=== PATIENT | female | born 1935 | race Caucasian/White ===

== ENCOUNTER 2020-09-13 13:57 | Outpatient (REF) | payer MEDICARE, SELFPAY | END 2020-09-13 13:58 | disposition home or self-care (01) | LOC: HO.LAB 13:57 | PROVIDERS: PCP Internal Medicine; Visit Provider Internal Medicine Cardiovascular Disease | DX: I48.0 Paroxysmal atrial fibrillation (principal); I44.7 Left bundle-branch block, unspecified; I10 Essential (primary) hypertension; R60.0 Localized edema | CPT/HCPCS: 36415; 83880; 93005; 99212 ==

== ENCOUNTER 2020-09-14 13:46 | Outpatient (REF) | payer MEDICARE, SELFPAY ==
[2020-09-14 17:06] LABS: B Type Natriuretic Peptide 136 pg/mL (<100)
== END 2020-09-14 13:47 | disposition home or self-care (01) ==
LOC: HO.HMGCLDS 13:46
PROVIDERS: PCP Internal Medicine; Visit Provider Internal Medicine Cardiovascular Disease
DX: R60.0 Localized edema (principal)
CPT/HCPCS: 36415; 83880

== ENCOUNTER → 2020-11-10 09:28 | Outpatient (REF) | payer MEDICARE, SELFPAY ==
--- NOTE | 2020-11-10 09:31 | CA_ITS ---
Transthoracic Echocardiogram Patient (Last, First, Middle): Gloria Vela T Gender: Female Date of : 1935 Age: 85 Procedure Date: 11/10/2020 Procedure Type: Transthoracic Echocardiogram Location: OP Height: 160.02 cm Weight: 89.81 kg BSA: 1.93 m2 Heart Rate: bpm BP: 107 / 59 mmHg Medical Office Asst: JUAN Referring MD: Jorge Luis Luz MD Symptoms: R60.0 - Localized edema Study Quality: Fair ECG Rhythm: Sinus with PACs Conclusions: - The left ventricular systolic function is normal. The visually estimated ejection fraction is between 65-70%. - There is moderate calcification of the aortic valve. There is no aortic valve stenosis. - There is severe mitral annular calcification. - There is mild dilatation of the ascending aorta measuring 3.90 cm. Findings Left Ventricle Normal left ventricular cavity size. There is mildly increased left ventricular wall thickness. The left ventricular systolic function is normal. The visually estimated ejection fraction is between 65-70%. E/E prime ratio is >15, consistent with elevated filling pressures. Evidence suggests grade I (mild) diastolic dysfunction. Right Ventricle Normal right ventricular cavity size and systolic function. Atria The left atrium is normal in size. The right atrium is normal in size. Aortic Valve There is moderate calcification of the aortic valve. There is no aortic valve stenosis. The peak aortic velocity is 1.74 m/s with a calculated peak gradient of 12 mmHg. There is no aortic valve regurgitation. Mitral Valve There is severe mitral annular calcification. There is trace mitral valve regurgitation. There is no mitral valve stenosis. Pulmonic Valve The pulmonic valve was not well visualized. Tricuspid Valve Normal tricuspid valve structure. There is trace tricuspid valve regurgitation. The pulmonary artery systolic pressure is normal. Great Vessels There is mild dilatation of the ascending aorta measuring 3.90 cm. Venous The inferior vena cava is normal in size and collapses greater than 50% with inspiration. Pericardium/Pleural There is no evidence of pericardial effusion. Prior Study Comparison No significant change compared to prior study dated: 03/07/2018. Measurements M-Mode Liner Measurements Normals - Women/Men LVIDd: 4.82 3.9-5.3/4.2-5.9 cm LVIDd Index: 2.50 1.9-3.2 cm/m2 LVIDs: 3.26 2.0-3.8 cm LVPWd: 0.87 0.6-0.9/0.6-1.0 cm M-Mode Volumes LV EDV: 109.00 LV ESV: 42.80 2D Linear Measurements IVSd: 1.14 0.6-0.9/0.6-1.0 cm LVIDd: 3.53 3.9-5.3/4.2-5.9 cm LVIDd Index: 1.83 2.4-3.2/2.2-3.1 cm/m2 LVIDs: 2.84 2.0-3.6 cm LVPWd: 1.11 0.7-1.1 cm Ao Root: 2.90 2.1-3.5 cm LA Diam: 3.50 2.7-3.8/3.0-4.0 cm LAIDs Index: 1.81 1.5-2.3 cm/m2 LV Mass: 155.08 67-162/88-224 g LV Mass Index: 80.35 43-95/49-115 g/m2 LVOT Diam: 2.00 3.0+(-)1.3 cm M-Mode Systolic Function FS: 32.40 27-47/25-43% LVEF: 60.70 >55% Mitral Valve MV Pk E: 1.10 MV PK A: 1.36 MV Decel Time: 81.00 E/A: 0.80 E'Lateral: 6.64 E'Medial: 7.18 E/E' Med: 15.30 E/E' Lat: 16.60 PHT: 24.00 MVA PHT: 9.17 Decel Sevier: 13.68 Aortic Valve AoV Pk Wilfredo: 1.74 AoV Pk Grad: 12.00 LVOT LVOT Diam: 2.00 LVOT Area: 3.14 Diastolic Function MV Pk E: 1.10 MV Pk A: 1.36 E/A: 0.80 E'Medial: 7.18 E/E' Med: 15.30 E' Laterial: 6.64 E/E' Lat: 16.60 Right Ventricle TAPSE (mm): 2.39 Tricuspid Valve TR Pk Wilfredo: 276.00 TR Pk Grad: 30.00 RA Press: 3.00 RVSP: 33.00 Great Vessels Aorta Ao Root-2D: 2.90 2.0-3.7 cm Ao Asc: 3.90 2.1-3.4 cm Updated in Other Vendor System with Status of Final Migue Umaña MD electronically signed on 11/12/2020 1:22:41 PM with status of Final
== END ==
LOC: HO.CARD 09:28
PROVIDERS: Visit Provider Internal Medicine Cardiovascular Disease
DX: I44.7 Left bundle-branch block, unspecified (principal); I48.0 Paroxysmal atrial fibrillation; R60.0 Localized edema
CPT/HCPCS: 93306

== ENCOUNTER 2020-12-06 07:55 | Outpatient (RCR) | payer MEDICARE, SELFPAY | END 2020-12-13 12:00 | disposition home or self-care (01) | LOC: HO.WCC 07:55 | PROVIDERS: Visit Provider Physician Assistant | DX: I87.332 Chronic venous hypertension (idiopathic) with ulcer and inflammation of left lower extremity (principal); L97.821 Non-pressure chronic ulcer of other part of left lower leg limited to breakdown of skin; I48.91 Unspecified atrial fibrillation; I10 Essential (primary) hypertension; Z87.891 Personal history of nicotine dependence; Z79.899 Other long term (current) drug therapy | CPT/HCPCS: 97597; 99212 ==

== ENCOUNTER 2020-12-28 14:21 | Outpatient (REF) | payer MEDICARE, SELFPAY ==
--- NOTE | ~2020-12-28 | MM_ITS ---
EXAMINATION: MM SCREENING DIGITAL BREAST TOMOSYNTHESIS, BILATERAL CLINICAL INFORMATION: Screening. Asymptomatic. The lifetime risk of breast cancer based on the Tyrer-Cuzick Model is under 1%. COMPARISON: Mammography: 11/23/2019, 06/17/2018, 06/05/2017 TECHNIQUE: Digital breast tomosynthesis is performed in both the craniocaudal and mediolateral oblique views along with computer-aided detection (CAD). Synthesized 2D images are generated from the tomosynthesis. FINDINGS: There are scattered areas of fibroglandular density (ACR BI-RADS breast composition Category b). There are no significant masses, abnormal calcifications, or other abnormalities. Again, there are scattered bilateral ductal secretory and punctate and coarse round and some vascular calcifications. The axilla and skin contours are unremarkable. No significant changes. MM/MM tomosynthesis screening BI IMPRESSION: No mammographic evidence of malignancy. ASSESSMENT: BI-RADS 2: Benign RECOMMENDATION: Routine annual mammography screening. This patient's information was entered into a reminder system with a target due date for their next mammogram.
== END 2020-12-28 14:22 | disposition home or self-care (01) ==
LOC: HO.MAMMO 14:21
PROVIDERS: Visit Provider Internal Medicine
DX: Z12.31 Encounter for screening mammogram for malignant neoplasm of breast (principal)
CPT/HCPCS: 77063; 77067

== ENCOUNTER 2021-07-03 13:09 | Outpatient (RCR) | payer MEDICARE, SELFPAY | END 2021-07-11 14:20 | disposition home or self-care (01) | LOC: HO.WCC 13:09 | PROVIDERS: PCP Internal Medicine; Visit Provider Physician Assistant | DX: I87.332 Chronic venous hypertension (idiopathic) with ulcer and inflammation of left lower extremity (principal); L97.821 Non-pressure chronic ulcer of other part of left lower leg limited to breakdown of skin; I48.91 Unspecified atrial fibrillation; I44.7 Left bundle-branch block, unspecified; Z87.891 Personal history of nicotine dependence; Z79.899 Other long term (current) drug therapy; Z91.19 Patient's noncompliance with other medical treatment and regimen | CPT/HCPCS: 29581; 99212 ==

== ENCOUNTER → 2021-09-08 10:54 | Outpatient (BNVA) | payer MEDICARE, SELFPAY | PROVIDERS: PCP Internal Medicine; Visit Provider Internal Medicine Cardiovascular Disease | DX: I48.0 Paroxysmal atrial fibrillation (principal); I44.7 Left bundle-branch block, unspecified; R60.0 Localized edema; Z79.01 Long term (current) use of anticoagulants; Z79.899 Other long term (current) drug therapy | CPT/HCPCS: 93005; 99212 ==

== ENCOUNTER 2021-11-16 11:51 | Emergency (ER) | payer MEDICARE, SELFPAY ==
--- NOTE | ~2021-11-16 | XR_ITS ---
EXAMINATION: XR SHOULDER, RIGHT CLINICAL INFORMATION: Fall pain COMPARISON: X-rays of the chest December 2017 TECHNIQUE: 3 views of the right shoulder. FINDINGS: There is prominent marginal osteophyte formation in the humeral head particularly superiorly. Marginal osteophytes also present in the glenoid. There is at least mild joint space narrowing of the glenohumeral joint. There is mild hypertrophic osteoarthritis of the acromioclavicular joint. A do not see a fracture. Partially visualized lungs are clear. There is calcification of the dorsal aorta. There is spondylosis of the dorsal spine. XR/XR shoulder RT min 2V IMPRESSION: Advanced osteoarthritis of the glenohumeral joint unchanged. Mild osteoarthritis of acromioclavicular joint.
--- NOTE | ~2021-11-16 | CT_ITS ---
EXAMINATION: CT BRAIN, CT FACIAL BONES AND CT CERVICAL SPINE WITHOUT CONTRAST. CLINICAL INFORMATION: Fall on thinners. COMPARISON: CT brain 05/06/2018 TECHNIQUE: 5 mm thin axial and reformatted 2 mm thin sagittal and coronal images of brain were obtained. Axial 3 mm thin and reformatted 2 mm thin images of cervical spine were obtained. Lastly axial 1.5 mm thin and reformatted 1.5 mm thin sagittal and coronal images of facial bones were obtained. DLP [id number]. FINDINGS: Brain: There is no acute intra-axial, extra-axial bleed, masses or midline shift. There is no acute infarction evolution. There is a right frontal scalp hematoma without calvarial fracture. There is no acute infarction evolution. The lateral ventricles are symmetrical in size and configuration but enlarged. The paranasal sinuses and bilateral mastoid air cells are well-aerated. Cervical spine: On sagittal reconstructed images there is mild straightening of cervical lordosis. The vertebral and heights and alignment is normal. There is loss of C4-C5, C5-C6 and C6-C7 disc heights with mild ventral and posterior cervical spondylosis. The craniovertebral junction and the C1-C2 alignment is normal. There is moderate right C2-C3, left C3-C4 and bilateral C4-C5 facet joint arthropathy. No visible acute fracture, dislocation or subluxation seen. The prevertebral and paravertebral soft tissues are normal. The airways widely patent. Visualized bilateral parotid, submandibular and thyroid lobes are symmetric and normal. The lung apices are clear. The health Facial bones: There is normal aeration of paranasal sinuses and mastoid air cells with mild mucoperiosteal thickening bilateral maxillary sinuses. The ostiomeatal complex and bilateral frontoethmoidal recess are widely patent. The rest the paranasal sinuses are well-aerated. There is jessica bullosa bilateral middle turbinates with paradoxical left middle turbinate. The bony sinus hernandez are intact. The maxillofacial and nasal bone appears intact. The TM joints and the visualized mandible is normal. The bony orbits, optic globe, optic nerve and the intraorbital soft tissues are normal. CT/CT cervical spine wo IV con IMPRESSION: Moderate right frontal and forehead scalp hematoma without calvarial fracture. No acute intracranial process seen. Degenerative changes cervical spine without any visible acute fracture or dislocation. No acute fracture or bony abnormality involving maxillofacial, nasal and mandibular bones. There is mild mucoperiosteal thickening bilateral maxillary sinuses.
[2021-11-16 12:06] VITALS: BP 140/90; PULSE 70; O2SAT 95
[2021-11-16 12:08] VITALS: BP 190/100; PULSE 64; RESP 18; TEMP 36.6; O2SAT 98; BMI 38.7
--- NOTE | 2021-11-16 12:12 | ECG_ITS ---
Test Reason : FALL Blood Pressure : / mmHG Vent. Rate : 052 BPM Atrial Rate : 052 BPM P-R Int : 216 ms QRS Dur : 134 ms QT Int : 458 ms P-R-T Axes : 000 -32 060 degrees QTc Int : 425 ms Sinus bradycardia with 1st degree A-V block Left axis deviation Left bundle branch block Abnormal ECG When compared with ECG of 06-MAY-2018 09:28, Premature atrial complexes are no longer Present Referred By: Frannie Glasgow Electronically Signed By:MIMI HENRIQUEZ
--- NOTE | 2021-11-16 12:21 | ED_ITS ---
HPI - Head Injury General Chief complaint: Head Injury Stated complaint: FALL,C-COLLAR,+THINNERS Time Seen by Provider: 11/16/21 12:10 Source: patient Mode of arrival: EMS History of Present Illness HPI Narrative: 86-year-old female who is brought in by EMS for what appears to be a mechanical fall as she describes that she ambulates with 2 canes and she was entering the kitchen when of the canes slid out away from her causing her to list to the right an striking the wall without loss of consciousness. She only describes pain at her right forehead and the right side of her face at this time. She is currently on Eliquis but denies that it is for irregular heartbeat or any coagulation disorder. 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 She denies any fevers, chills, urinary pain/burn ing/frequency and denies any preceding dizziness, shortness of breath, or palpitations. Related Data Home Medications Medication Instructions Recorded Confirmed apixaban 5 mg tablet 5 mg PO BID 09/13/20 09/08/21 aspirin 81 mg tablet,delayed 81 mg PO DAILY 09/13/20 09/08/21 release (Adult Aspirin Regimen) atenolol 25 mg tablet 25 mg PO DAILY 09/13/20 09/08/21 calcium carbonate 500 mg calcium 500 mg PO DAILY 09/13/20 09/08/21 (1,250 mg) tablet (Calcium 500) cholecalciferol (vitamin D3) 25 25 mcg PO DAILY 09/13/20 09/08/21 mcg (1,000 unit) capsule rosuvastatin 5 mg tablet 5 mg PO DAILY 09/13/20 09/08/21 Previous Rx's Medication Instructions Recorded furosemide 20 mg tablet (Lasix) 20 mg PO DAILY #30 tabs 05/08/21 Allergies Allergy/AdvReac Type Severity Reaction Status Date / Time ezetimibe [Zetia] Allergy Unknown muscle Verified 09/08/21 11:07 aches simvastatin AdvReac Unknown myopathy Verified 09/08/21 11:07 statins Allergy Unknown muscle Uncoded 09/08/21 11:07 aches Review of Systems Review of Systems: Pertinent positives and negatives as stated in HPI 10 point review of systems is otherwise negative. [facility]LY [facility] Past Medical History Source: nursing notes reviewed Medical History HTN (hypertension) Left bundle branch block Paroxysmal atrial fibrillation Surgical History Hx laparoscopic cholecystectomy Hx of hysterectomy Hx of parathyroidectomy Family History Family History Father CVD (cardiovascular disease) Mother CVD (cerebrovascular disease) Social History Social History Alcohol intake: never Patient Tobacco Use Status: Former Tobacco user Advance Directives: No Advance Directives Information Provided: No Physical Exam Vital Signs: Vital Signs: Last Vital Signs Temp 98 F 11/16/21 12:08 Pulse 64 11/16/21 12:08 Resp 18 11/16/21 12:08 BP 190/100 H 11/16/21 12:08 Pulse Ox 98 11/16/21 12:08 O2 Del Method 11/16/21 12:08 BMI result Body Mass Index 38.7 VITAL SIGNS: Reviewed. GENERAL: Well developed, well nourished, in no acute distress. HEAD: Normocephalic/contusion with hematoma at the right forehead, superficial abrasion to the right cheek EYES: PERRLA, EOMI EARS: Ext canals without abnormality NOSE: Nares patent bilateral OROPHARYNX: no oral lesions noted, posterior pharynx clear NECK: C-collar in place, no midline cervical spine tenderness on palpation LUNGS: Good inspiratory effort without evidence of wheeze/rhonchi/rales and no tachypnea. SpO2<98>; CHEST WALL: No deformity or crepitus, no pain on palpation, no clavicular deformity or pain on palpation CARDIOVASCULAR: Regular rate and rhythm without noted murmurs, no JVD but there is chronic bilateral lower extremity 1+ pitting edema ABDOMEN: Soft, non-tender, non-distended with bowel sounds. MUSCULOSKELETAL: No tenderness, deformities, or effusions noted on gross inspection. EXTREMITIES: No cyanosis, clubbing or edema; RIGHT UPPER EXTREMITY: There is noted contusion to the lateral aspect of the right upper extremity without deformity and distal pulses and sensation are intact.. SKIN: Inspection of the skin reveals no rashes NEUROLOGIC: Alert and oriented x 4. Strength and sensation to light touch were grossly intact x 4, no facial asymmetry, no pronator drift Course Course Course Narrative: 86-year-old female with history and clinical presentation consistent with mechanical fall no evidence to suggest syncope or near-syncope, however patient is on blood thinners with head and facial contusions and will undergo CT imaging to ensure no intracranial hemorrhage. Review of all investigations without acute findings and patient is otherwise discharged home in stable condition, focal intact, and encouraged to follow-up if she experiences any changes. MDM - Head Injury Lab Data Result diagrams: 11/16/21 12:46 11/16/21 12:46 Labs: Lab Results 11/16/21 11/16/21 11/16/21 Range/Units 12:46 12:46 12:46 WBC 7.7 (4.8-10.8) X10*3/uL RBC 4.45 (4.20-5.50) X10*6/uL Hgb 13.6 (12.0-16.0) g/dl Hct 42.2 (37.0-47.0) % MCV 94.8 (80.0-98.0) fL MCH 30.6 (27.0-33.0) pg MCHC 32.2 (31.0-35.0) g/dl RDW 13.3 (11.0-16.0) % Plt Count 190 (160-400) X10*3/uL MPV 11.5 (9.4-12.3) fL Immature Gran % (Auto) 0.1 (0.0-0.4) % Neut % (Auto) 65.4 (45-73) % Lymph % (Auto) 19.9 L (20-40) % [place] % (Auto) 8.2 (2-11) % Eos % (Auto) 5.6 H (0-4) % Baso % (Auto) 0.8 (0-2) % Lymph # (Auto) 1.5 (1.2-4.9) X10*3/uL [place] # (Auto) 0.6 (0.1-1.2) X10*3/uL Eos # (Auto) 0.4 (0.0-0.4) X10*3/uL Baso # (Auto) 0.1 (0.0-0.2) X10*3/uL Abs Immat Gran (auto) 0.01 (0.00-0.03) X10*3/uL Absolute Neuts (auto) 5.1 (2.0-8.3) x10*3/uL Absolute Nucleated RBC 0.000 (0.0-0.012) X10*3/uL Nucleated RBC % (auto) 0.0 (0.0-0.2) /100WBC PT 15.7 H (10.0-13.1) SEC INR 1.4 H (0.9-1.1) Sodium 142 (135-145) mmol/L Potassium 4.4 (3.3-5.1) mmol/L Chloride 103 (96-108) mmol/L Carbon Dioxide 29 (22-29) mmol/L Anion Gap 14 (12-20) BUN 22 H (9-16) mg/dL Creatinine 0.79 (0.5-1.4) mg/dL Estim Creat Clear Calc 56.2 Estimated GFR > 60 Random Glucose 103 (60-115) mg/dL Calcium 10.0 (8.4-10.2) mg/dL Total Bilirubin 0.6 (0.0-1.0) mg/dL AST 15 (5-31) U/L ALT 13 (0-31) U/L Alkaline Phosphatase 92 (39-117) U/L Total Protein 7.2 (6.5-8.0) g/dL Albumin 4.4 (3.5-5.0) g/dL Urine Color Urine Appearance Urine pH (5.0-9.0) Ur Specific [place] (1.005-1.025) Urine Protein (Neg-Trace) mg/dL Urine Glucose (UA) (Negative) mg/dL Urine Ketones (Negative) mg/dL Urine Blood (Negative) Urine Nitrite (Negative) Ur Leukocyte Esterase (Negative) 11/16/21 Range/Units 12:59 WBC (4.8-10.8) X10*3/uL RBC (4.20-5.50) X10*6/uL Hgb (12.0-16.0) g/dl Hct (37.0-47.0) % MCV (80.0-98.0) fL MCH (27.0-33.0) pg MCHC (31.0-35.0) g/dl RDW (11.0-16.0) % Plt Count (160-400) X10*3/uL MPV (9.4-12.3) fL Immature Gran % (Auto) (0.0-0.4) % Neut % (Auto) (45-73) % Lymph % (Auto) (20-40) % [place] % (Auto) (2-11) % Eos % (Auto) (0-4) % Baso % (Auto) (0-2) % Lymph # (Auto) (1.2-4.9) X10*3/uL [place] # (Auto) (0.1-1.2) X10*3/uL Eos # (Auto) (0.0-0.4) X10*3/uL Baso # (Auto) (0.0-0.2) X10*3/uL Abs Immat Gran (auto) (0.00-0.03) X10*3/uL Absolute Neuts (auto) (2.0-8.3) x10*3/uL Absolute Nucleated RBC (0.0-0.012) X10*3/uL Nucleated RBC % (auto) (0.0-0.2) /100WBC PT (10.0-13.1) SEC INR (0.9-1.1) Sodium (135-145) mmol/L Potassium (3.3-5.1) mmol/L Chloride (96-108) mmol/L Carbon Dioxide (22-29) mmol/L Anion Gap (12-20) BUN (9-16) mg/dL Creatinine (0.5-1.4) mg/dL Estim Creat Clear Calc Estimated GFR Random Glucose (60-115) mg/dL Calcium (8.4-10.2) mg/dL Total Bilirubin (0.0-1.0) mg/dL AST (5-31) U/L ALT (0-31) U/L Alkaline Phosphatase (39-117) U/L Total Protein (6.5-8.0) g/dL Albumin (3.5-5.0) g/dL Urine Color Yellow Urine Appearance Clear Urine pH 6.5 (5.0-9.0) Ur Specific [place] 1.010 (1.005-1.025) Urine Protein Negative (Neg-Trace) mg/dL Urine Glucose (UA) Negative (Negative) mg/dL Urine Ketones Negative (Negative) mg/dL Urine Blood Negative (Negative) Urine Nitrite Negative (Negative) Ur Leukocyte Esterase Negative (Negative) ECG Data Attestation: I personally reviewed and interpreted this ECG as follows: Prior ECG tracings: available for review Interpretation: Sinus bradycardia with first-degree AV block, no STEMI, LBBB, QTC is within normal limits Discharge Plan Discharge Clinical Impression: Fall, Chronic anticoagulation, Contusion of face Patient Disposition: Home, Self-Care Instructions: Blood Thinners (ED), Contusion in Adults (ED), Hematoma (ED), Fall Prevention for Older Adults (ED) Additional Instructions: 1. Resume all home medications. 2. Recommend applying ice to unexposed skin at the right forehead for 5-10 minutes. 3. Follow-up with your primary care provider next 1-2 days for re-evaluation. Return to the ER for any worsening symptoms that should include numbness/tingling/weakness/visual changes. Prescriptions: No Action furosemide [Lasix] 20 mg tablet 20 mg PO DAILY Qty: 30 3RF Eliquis 5 mg tablet 5 mg PO BID rosuvastatin 5 mg tablet 5 mg PO DAILY atenolol 25 mg tablet 25 mg PO DAILY calcium carbonate [Calcium 500] 500 mg calcium (1,250 mg) tablet 500 mg PO DAILY aspirin [Adult Aspirin Regimen] 81 mg tablet,delayed release (DR/EC) 81 mg PO DAILY cholecalciferol (vitamin D3) 25 mcg (1,000 unit) capsule 25 mcg PO DAILY Referrals: Bolivar Braden MD [Primary Care Provider] -
[2021-11-16 12:49] LABS: MANUAL DIFF FLAG NO
[2021-11-16 12:58] LABS: Basophils Absolute Auto 0.1 X10*3/uL (0.0-0.2); Basophils Percent Auto 0.8 % (0-2); Eosinophils Absolute Auto 0.4 X10*3/uL (0.0-0.4); Eosinophils Percent Auto 5.6 % (0-4); Hematocrit 42.2 % (37.0-47.0); Hemoglobin 13.6 g/dl (12.0-16.0); Imm Gran Abs Auto 0.01 X10*3/uL (0.00-0.03); Imm Gran Pct Auto 0.1 % (0.0-0.4); Lymphocytes Absolute Auto 1.5 X10*3/uL (1.2-4.9); Lymphocytes Percent Auto 19.9 % (20-40); Mean Corpuscular HGB Conc 32.2 g/dl (31.0-35.0); Mean Corpuscular Hemoglobin 30.6 pg (27.0-33.0); Mean Corpuscular Volume 94.8 fL (80.0-98.0); Mean Platelet Volume 11.5 fL (9.4-12.3); Monocytes Absolute Auto 0.6 X10*3/uL (0.1-1.2); Monocytes Percent Auto 8.2 % (2-11); Neutrophils Absolute Auto 5.1 x10*3/uL (2.0-8.3); Neutrophils Percent Auto 65.4 % (45-73); Platelet Count 190 X10*3/uL (160-400); Red Blood Count 4.45 X10*6/uL (4.20-5.50); Red Cell Distribution Width 13.3 % (11.0-16.0); White Blood Count 7.7 X10*3/uL (4.8-10.8)
[2021-11-16 13:01] LABS: INTERNATIONAL NORM RATIO 1.4 (0.9-1.1); Prothrombin Time 15.7 SEC (10.0-13.1)
[2021-11-16 13:10] LABS: Appearance Urine Clear; Color Urine Yellow; Glucose Urine UA Negative (Negative); Leukocyte Esterase Urine Negative (Negative); Nitrite Urine Negative (Negative); PH 6.5 (5.0-9.0); Urine Blood Negative (Negative); Urine Ketones Negative (Negative); Urine Protein Negative (Neg-Trace)
[2021-11-16 13:10] LABS: Alanine Aminotransferase 13 U/L (0-31); Albumin Level 4.4 g/dL (3.5-5.0); Alkaline Phosphatase 92 U/L (39-117); Anion Gap 14 (12-20); Aspartate Amino Transferase 15 U/L (5-31); Bilirubin Total 0.6 mg/dL (0.0-1.0); Blood Urea Nitrogen 22 mg/dL (9-16); Carbon Dioxide 29 mmol/L (22-29); Chloride 103 mmol/L (96-108); Creatinine Clr Calc Pharmacy 56.2; Estimated Glomerular Filt Rate > 60; Glucose Random 103 mg/dL (60-115); Potassium 4.4 mmol/L (3.3-5.1); Sodium 142 mmol/L (135-145); Total Protein 7.2 g/dL (6.5-8.0)
[2021-11-16 16:00] VITALS: BP 134/61; PULSE 60; RESP 18; TEMP 36.6; O2SAT 98
--- NOTE | 2021-11-16 16:29 | PC.NURSE ---
pt &ox3, vss, pt denies any pain at this time, declined tylenol. no new orders at this time.
== END 2021-11-16 16:53 | disposition home or self-care (01) ==
PROVIDERS: Emergency Provider Student in an Organized Health Care Education/Training Program; PCP Internal Medicine
DX: S00.83XA Contusion of other part of head, initial encounter (principal); M54.2 Cervicalgia; R51.9 Headache, unspecified; M25.511 Pain in right shoulder; W01.0XXA Fall on same level from slipping, tripping and stumbling without subsequent striking against object, initial encounter; Y93.9 Activity, unspecified; Y92.9 Unspecified place or not applicable; Y99.9 Unspecified external cause status; Z79.01 Long term (current) use of anticoagulants; Z79.899 Other long term (current) drug therapy
CPT/HCPCS: 36415; 70450; 70486; 72125; 73030; 80053; 81003; 85025; 85610; 93005; 99284

== ENCOUNTER 2022-01-02 12:45 | Outpatient (RCR) | payer MEDICARE, SELFPAY | END 2022-01-10 13:31 | disposition home or self-care (01) | LOC: HO.WCC 12:45 | PROVIDERS: PCP Internal Medicine; Visit Provider Physician Assistant | DX: Z09 Encounter for follow-up examination after completed treatment for conditions other than malignant neoplasm (principal); I89.0 Lymphedema, not elsewhere classified; I48.91 Unspecified atrial fibrillation; I10 Essential (primary) hypertension; Z87.891 Personal history of nicotine dependence; Z87.2 Personal history of diseases of the skin and subcutaneous tissue | CPT/HCPCS: 97597; 97602; 99212 ==

== ENCOUNTER 2022-01-03 14:01 | Outpatient (REF) | payer MEDICARE, SELFPAY ==
--- NOTE | ~2022-01-03 | MM_ITS ---
EXAMINATION: MM SCREENING DIGITAL BREAST TOMOSYNTHESIS, BILATERAL CLINICAL INFORMATION: Screening. Asymptomatic. COMPARISON: Mammography: 12/28/2020, 11/23/2019, 06/17/2018 TECHNIQUE: Digital breast tomosynthesis is performed in both the craniocaudal and mediolateral oblique views along with computer-aided detection (CAD). Synthesized 2D images are generated from the tomosynthesis. FINDINGS: There are scattered areas of fibroglandular density (ACR BI-RADS breast composition Category b). Fibroglandular pattern is similar to prior studies. No significant mass or interval architectural abnormality or developing density. Again, there are multiple benign bilateral scattered round, rim, ductal secretory, and some vascular calcifications. There are dermal lesions overlying the right breast. The axilla are unremarkable. No significant changes. MM/MM tomosynthesis screening BI IMPRESSION: No significant changes from prior studies. ASSESSMENT: BI-RADS 2: Benign RECOMMENDATION: Routine annual mammography screening. This patient's information was entered into a reminder system with a target due date for their next mammogram.
== END 2022-01-03 14:02 | disposition home or self-care (01) ==
LOC: HO.MAMMO 14:01
PROVIDERS: PCP Internal Medicine; Visit Provider Internal Medicine
DX: Z12.31 Encounter for screening mammogram for malignant neoplasm of breast (principal)
CPT/HCPCS: 77063; 77067

== ENCOUNTER 2022-01-27 04:49 | Emergency (ER) | payer MEDICARE, SELFPAY ==
--- NOTE | ~2022-01-27 | CT_ITS ---
EXAMINATION: CT HEAD WITHOUT CONTRAST CLINICAL INFORMATION: Head injury on Ekaterina COMPARISON: 11/16/2021 TECHNIQUE: Contiguous axial imaging was performed from the skull base to vertex without intravenous contrast. This CT examination was performed using dose optimization techniques as appropriate, variously including the following: * Automated exposure control * Adjustment of mA and/or kV according to patient size (this includes techniques or standardized protocols for targeted exams where dose is matched to indication/reason for exam; i.e. extremities or head) Use of iterative reconstruction technique DLP: 672 mGy-cm. FINDINGS: There is no evidence of acute intracranial hemorrhage or territorial infarction. No abnormal mass effect or midline shift is seen. Henderson to white matter differentiation is well preserved. No extra-axial fluid collections are identified. No hydrocephalus. Proportional prominence of the ventricles and sulcal spaces is consistent with mild volume loss. Patchy periventricular and deep white matter hypoattenuation is consistent with mild small vessel ischemic changes. The osseous structures and soft tissues are normal. Mucous retention cyst of the right maxillary sinus. The mastoid air cells and visualized portions of the paranasal sinuses are otherwise well aerated. CT/CT head/brain wo IV con IMPRESSION: No acute intracranial pathology. Mild volume loss with small vessel ischemic change.
[2022-01-27 04:58] VITALS: BP 173/83; PULSE 79; RESP 16; TEMP 36.1; O2SAT 99; BMI 35.0
--- NOTE | 2022-01-27 05:28 | ED.HEATRA ---
HPI - Head Injury General Chief complaint: Head Injury Stated complaint: Head Inj Time Seen by Provider: 01/27/22 05:24 Source: patient Mode of arrival: ambulatory Limitations: no limitations History of Present Illness HPI Narrative: Patient on Eliquis ability turned quick and hit her right forehead to the cabin around 1800 no loss of consciousness no nausea no vomiting no focal weakness no other injuries Related Data Home Medications Medication Instructions Recorded Confirmed apixaban 5 mg tablet 5 mg PO BID 09/13/20 09/08/21 aspirin 81 mg tablet,delayed 81 mg PO DAILY 09/13/20 09/08/21 release (Adult Aspirin Regimen) atenolol 25 mg tablet 25 mg PO DAILY 09/13/20 09/08/21 calcium carbonate 500 mg calcium 500 mg PO DAILY 09/13/20 09/08/21 (1,250 mg) tablet (Calcium 500) cholecalciferol (vitamin D3) 25 25 mcg PO DAILY 09/13/20 09/08/21 mcg (1,000 unit) capsule rosuvastatin 5 mg tablet 5 mg PO DAILY 09/13/20 09/08/21 Allergies Allergy/AdvReac Type Severity Reaction Status Date / Time ezetimibe [Zetia] Allergy Unknown muscle Verified 11/18/21 12:51 aches simvastatin AdvReac Unknown myopathy Verified 11/18/21 12:51 statins Allergy Unknown muscle Uncoded 11/18/21 12:51 aches Review of Systems Review of Systems: Yes all other systems are reviewed and are negative [facility] Past Medical History Medical History HTN (hypertension) Left bundle branch block Paroxysmal atrial fibrillation Surgical History Hx laparoscopic cholecystectomy Hx of hysterectomy Hx of parathyroidectomy Family History Family History Father CVD (cardiovascular disease) Mother CVD (cerebrovascular disease) Social History Social History Alcohol intake: never Patient Tobacco Use Status: Former Tobacco user Advance Directives: No Advance Directives Information Provided: No Physical Exam Vital Signs: Vital Signs: Last Vital Signs Temp 98.0 F 01/27/22 05:52 Pulse 61 01/27/22 05:52 Resp 16 01/27/22 05:52 BP 137/73 01/27/22 05:52 Pulse Ox 97 01/27/22 05:52 O2 Del Method 01/27/22 05:52 BMI result Body Mass Index 35.0 Appearance: Alert. Oriented X3. No acute distress. Eyes: PERRLA, No Nystagmus ENT: Pharynx normal. Oral Mucosa moist Neck: Normal inspection. Neck supple. CVS: Normal heart rate and rhythm. Pulses normal. Respiratory: No respiratory distress. Equal air entry bilateral, no wheezing/rales/rhonchi Abdomen: Soft and nontender. Bowel sounds are present, no mass palpable, no CVA tenderness Skin: Skin warm and dry. Normal skin color. Normal skin turgor. Extremities: No lower extremity edema. No calf tenderness Neuro: Oriented X 3. No motor deficit. No sensory deficit.No cerebellar signs , cranial nerves II-XII intact MDM - Head Injury MDM Narrative Medical decision making narrative: Patient had CT negative discharge patient home patient ambulatory alert oriented no focal deficits Discharge Plan Discharge Clinical Impression: Closed head injury Patient Disposition: Home, Self-Care Instructions: Head Injury (ED) Additional Instructions: Care and cautions as advised Report to ER if severe headache/vomiting/seizure/change in mental status Your CT scan of the head is negative for any bleed Prescriptions: No Action Eliquis 5 mg tablet 5 mg PO BID rosuvastatin 5 mg tablet 5 mg PO DAILY atenolol 25 mg tablet 25 mg PO DAILY calcium carbonate [Calcium 500] 500 mg calcium (1,250 mg) tablet 500 mg PO DAILY aspirin [Adult Aspirin Regimen] 81 mg tablet,delayed release (DR/EC) 81 mg PO DAILY cholecalciferol (vitamin D3) 25 mcg (1,000 unit) capsule 25 mcg PO DAILY
[2022-01-27 05:52] VITALS: BP 137/73; PULSE 61; RESP 16; TEMP 36.7; O2SAT 97
== END 2022-01-27 06:57 | disposition home or self-care (01) ==
PROVIDERS: Emergency Provider Internal Medicine; PCP Internal Medicine
DX: S09.90XA Unspecified injury of head, initial encounter (principal); W22.09XA Striking against other stationary object, initial encounter; I10 Essential (primary) hypertension; I48.0 Paroxysmal atrial fibrillation; Y93.89 Activity, other specified; Y92.030 Kitchen in apartment as the place of occurrence of the external cause; Y99.9 Unspecified external cause status; Z79.01 Long term (current) use of anticoagulants; Z79.02 Long term (current) use of antithrombotics/antiplatelets; Z79.82 Long term (current) use of aspirin; Z79.899 Other long term (current) drug therapy
CPT/HCPCS: 70450; 99283; 99284

== ENCOUNTER 2022-02-01 08:30 | Outpatient (RCR) | payer MEDICARE, SELFPAY | END 2022-02-20 11:47 | disposition home or self-care (01) | LOC: HO.WCC 08:30 | PROVIDERS: PCP Internal Medicine; Visit Provider Physician Assistant | DX: I87.332 Chronic venous hypertension (idiopathic) with ulcer and inflammation of left lower extremity (principal); L97.822 Non-pressure chronic ulcer of other part of left lower leg with fat layer exposed; I87.2 Venous insufficiency (chronic) (peripheral); Q82.0 Hereditary lymphedema; I10 Essential (primary) hypertension; Z91.198 Patient's noncompliance with other medical treatment and regimen for other reason; Z87.891 Personal history of nicotine dependence | CPT/HCPCS: 11042; 97602; 99212 ==

== ENCOUNTER 2022-04-06 10:20 | Outpatient (REF) | payer MEDICARE, SELFPAY ==
--- NOTE | ~2022-04-06 | US_ITS ---
EXAMINATION: US VENOUS REFLUX/INSUFFICIENCY, LEFT CLINICAL INFORMATION: This is a 50 year-old woman with left lower extremity chronic venous insufficiency. COMPARISON: Venous ultrasound dated 07/08/2018. TECHNIQUE: Left lower extremity and venous insufficiency ultrasound was performed with velocity measurements. Color flow Doppler imaging was performed. FINDINGS: LEFT SIDE: GREATER SAPHENOUS VEIN: The left saphenofemoral junction measurement is 1.0 cm. There is no reflux The left proximal thigh measurement is 0.6 cm. There is no reflux. The left mid thigh measurement is 0.5 cm. There is no reflux. The left above-knee measurement is 0.5 cm. There is no reflux. The left at knee measurement is 0.3 cm. There is no reflux. The left below-knee measurement is 0.4 cm. There is no reflux. The left mid calf measurement is 0.3 cm. There is no reflux The left ankle measurement is 0.3 cm. There is no reflux. LATERAL ACCESSORY GREATER SAPHENOUS VEIN: The left saphenofemoral junction measurement is 0.3 cm. There is no reflux. LESSER SAPHENOUS VEIN: Not visualized. DEEP VENOUS SYSTEMS: There is no deep insufficiency in the left common femoral, femoral and popliteal vein segments. No left deep venous thrombosis is seen. A 0.2 x 0.4 x 0.9 cm left popliteal fossa Galarza's cyst is seen. US/US venous duplex LE LT IMPRESSION: No hemodynamically significant reflux is seen of the left greater saphenous vein proper or of a medial accessory branch. The left lesser saphenous vein is not visualized. No left deep venous insufficiency or thrombosis noted.
== END 2022-04-06 10:21 | disposition home or self-care (01) ==
LOC: HO.US 10:20
PROVIDERS: Visit Provider Physician Assistant
DX: I87.2 Venous insufficiency (chronic) (peripheral) (principal); L97.822 Non-pressure chronic ulcer of other part of left lower leg with fat layer exposed
CPT/HCPCS: 93971

== ENCOUNTER 2022-06-15 09:01 | Outpatient (RCR) | payer MEDICARE, SELFPAY | END 2022-07-03 13:36 | disposition home or self-care (01) | LOC: HO.WCC 09:01 | PROVIDERS: PCP Internal Medicine; Visit Provider Physician Assistant | DX: I87.311 Chronic venous hypertension (idiopathic) with ulcer of right lower extremity (principal); L97.812 Non-pressure chronic ulcer of other part of right lower leg with fat layer exposed; I89.0 Lymphedema, not elsewhere classified; I10 Essential (primary) hypertension; Z87.891 Personal history of nicotine dependence | CPT/HCPCS: 99213; 99214 ==

== ENCOUNTER 2022-07-12 10:53 | Outpatient (RCR) | payer MEDICARE, SELFPAY | END 2022-08-03 13:29 | disposition home or self-care (01) | LOC: HO.WCC 10:53 | PROVIDERS: Visit Provider Surgery | DX: I87.333 Chronic venous hypertension (idiopathic) with ulcer and inflammation of bilateral lower extremity (principal); L97.822 Non-pressure chronic ulcer of other part of left lower leg with fat layer exposed; L97.812 Non-pressure chronic ulcer of other part of right lower leg with fat layer exposed; Q82.0 Hereditary lymphedema; Z79.01 Long term (current) use of anticoagulants; Z79.899 Other long term (current) drug therapy | CPT/HCPCS: 11042; 97597; 99212 ==

== ENCOUNTER → 2022-09-11 11:00 | Outpatient (REF) | payer MEDICARE, SELFPAY ==
--- NOTE | 2022-09-11 11:03 | CA_ITS ---
Transthoracic Echocardiogram Patient (Last, First, Middle): Gloria Vela T Gender: Female Date of : 1935 Age: 87 Procedure Date: 09/11/2022 Procedure Type: Transthoracic Echocardiogram Location: OP Height: 160.02 cm Weight: 92.99 kg BSA: 1.95 m2 Heart Rate: bpm BP: 122 / 80 mmHg Cupola Tapper Helper: Referring MD: Jorge Luis Luz MD Vacuum Plastic Forming Machine Operator: Jorge Luis Luz MD Symptoms: I44.7 - Left bundle-branch block, unspecified Study Quality: Adequate ECG Rhythm: Sinus w LBBB Conclusions: - 1. Normal LV systolic function with mild LVH with elevated filling pressures 2. Mildly dilated left atrium 3. Mild aortic stenosis with severe mitral and calcification 4. Normal RV systolic pressure 5. Mildly dilated ascending aorta at 3.7 cm 6. No gross pericardial effusion Findings Left Ventricle Normal left ventricular size and systolic function. There is mildly increased left ventricular wall thickness. The visually estimated ejection fraction is between 65-70%. Spectral Doppler is indicative of an impaired relaxation filling pattern. Elevated filling pressures. E/E prime ratio is >15, consistent with elevated filling pressures. Right Ventricle Normal right ventricular cavity size and systolic function. Atria The left atrium is mildly dilated. Interatrial shunt cannot be excluded. The right atrium is normal in size. Aortic Valve The aortic valve was not well visualized. There is mild calcification of the aortic valve. There is mild aortic valve stenosis. The peak aortic gradient is 20 mmHg.The mean gradient is 13 mmHg. The aortic valve area is 1.76 cm2. There is no aortic valve regurgitation. Mitral Valve There is mild anterior and moderate posterior mitral leaflet thickening. There is severe mitral annular calcification. There is trace mitral valve regurgitation. There is no mitral valve stenosis. Pulmonic Valve The pulmonic valve is likely normal. Tricuspid Valve Normal tricuspid valve structure. There is trace tricuspid valve regurgitation. The right ventricular systolic pressure is normal. The right ventricular systolic pressure is 28 mmHg. Normal right atrial pressure. There is no evidence of pulmonary hypertension. Great Vessels The pulmonary artery was not well visualized. There is mild dilatation of the ascending aorta measuring 3.70 cm. Venous The inferior vena cava is normal in size and collapses greater than 50% with inspiration. Pericardium/Pleural There is no evidence of pericardial effusion. Prior Study Comparison Changes noted compared to prior study dated: 11/10/2020. Mild aortic stenosis is noted Measurements 2D Linear Measurements IVSd: 1.31 0.6-0.9/0.6-1.0 cm LVIDd: 4.42 3.9-5.3/4.2-5.9 cm LVIDd Index: 2.27 2.4-3.2/2.2-3.1 cm/m2 LVIDs: 2.34 2.0-3.6 cm LVPWd: 1.31 0.7-1.1 cm Ao Root: 3.20 2.1-3.5 cm LA Diam: 3.30 2.7-3.8/3.0-4.0 cm LAIDs Index: 1.69 1.5-2.3 cm/m2 LV Mass: 273.07 67-162/88-224 g LV Mass Index: 140.03 43-95/49-115 g/m2 LVOT Diam: 2.00 3.0+(-)1.3 cm Mitral Valve MV VTI: 0.47 MV Pk Wilfredo: 1.46 MV Mn Wilfredo: 0.84 MV Pk Grad: 9.00 MV Mn Grad: 3.00 MV Pk E: 1.08 MV PK A: 1.37 MV Decel Time: 217.00 E/A: 0.80 E'Lateral: 4.13 E'Medial: 5.22 E/E' Med: 20.70 E/E' Lat: 26.20 PHT: 64.00 MVA PHT: 3.44 MVA Continuity: 2.36 Decel [place]: 4.95 Aortic Valve AoV Pk Wilfredo: 2.21 AoV Mn Wilfredo: 1.73 AoV VTI: 0.62 AoV Pk Grad: 20.00 Aov Mn Grad: 13.00 CASEY Cont.VTI: 1.76 LVOT LVOT Pk Wilfredo: 1.23 LVOT Mn Wilfredo: 0.85 LVOT VTI: 0.35 LVOT Pk Grad: 6.00 LVOT Mn Grad: 4.00 LVOT Diam: 2.00 LVOT Area: 3.14 Diastolic Function MV Pk E: 1.08 MV Pk A: 1.37 E/A: 0.80 E'Medial: 5.22 E/E' Med: 20.70 E' Laterial: 4.13 E/E' Lat: 26.20 Right Ventricle TAPSE (mm): 24.00 TVS' Wilfredo: 10.00 Tricuspid Valve TR Pk Wilfredo: 2.49 TR Pk Grad: 25.00 RA Press: 3.00 RVSP: 28.00 Great Vessels Aorta Ao Root-2D: 3.20 2.0-3.7 cm Ao Asc: 3.70 2.1-3.4 cm Pulmonary Valve PV Pk Wilfredo: 1.11 Peak PV Grad: 5.00 Updated in Other Vendor System with Status of Final Jorge Luis Luz MD electronically signed on 09/11/2022 3:28:18 PM with status of Final
== END ==
LOC: HO.CARD 11:00
PROVIDERS: PCP Internal Medicine; Visit Provider Internal Medicine Cardiovascular Disease
DX: I44.7 Left bundle-branch block, unspecified (principal)
CPT/HCPCS: 93306

== ENCOUNTER → 2022-09-11 11:03 | Outpatient (BNV) | payer MEDICARE, SELFPAY | PROVIDERS: PCP Internal Medicine; Visit Provider Internal Medicine Cardiovascular Disease | DX: I35.0 Nonrheumatic aortic (valve) stenosis (principal); I34.81 Nonrheumatic mitral (valve) annulus calcification | CPT/HCPCS: 93306 ==

== ENCOUNTER 2022-09-27 13:50 | Outpatient (AMB) | payer MEDICARE, SELFPAY ==
[2022-09-27 13:53] VITALS: BP 122/76; PULSE 72; BMI 36.3
--- NOTE | 2022-09-27 13:53 | A.OFFVIS_ITS ---
Intake Vital Signs 09/27/22 13:53 Height 5 ft 3 in Weight 205 lb 0.478 oz BMI 36.3 BP 122/76 Blood Pressure Location Lt brachial Position Sitting Pulse 72 Intake Visit Reasons: 1 year follow up Intake Note: 1 year follow-up with ekg feeling good Contract Driver Required: No Allergies ezetimibe [Zetia] Allergy (Unknown, Verified 11/18/21 12:51) muscle aches simvastatin Adverse Reaction (Unknown, Verified 11/18/21 12:51) myopathy statins Allergy (Unknown, Uncoded 11/18/21 12:51) muscle aches Medication List - Last Reconciled 09/27/22 by Jorge Luis Luz MD apixaban 5 mg PO BID aspirin (Adult Aspirin Regimen) 81 mg PO DAILY atenolol 25 mg PO DAILY calcium carbonate (Calcium 500) 500 mg PO DAILY cholecalciferol (vitamin D3) 25 mcg PO DAILY rosuvastatin 5 mg PO DAILY HPI HPI Comments History of Present Illness Details Cindy comes for follow-up. Recent echocardiogram shows preserved LV systolic function with mild aortic stenosis and severe mitral calcification. She has no new cardiovascular symptoms. Denies any prolonged irregular heartbeat or palpitations. 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 She denies any worsening shortness of breath, orthopnea, PND, lightheadedness, syncope. No bleeding issues or neurologic events. [facility] Medical History HTN (hypertension) Left bundle branch block Paroxysmal atrial fibrillation Surgical History Hx laparoscopic cholecystectomy Hx of hysterectomy Hx of parathyroidectomy Family History Father CVD (cardiovascular disease) Mother CVD (cerebrovascular disease) Social History Alcohol intake: never Patient Tobacco Use Status: Former Tobacco user Review of Systems Const Denies chills, Denies fatigue, Denies fever(s), Denies frequent falls, Denies weakness, Denies weight gain and Denies weight loss ENT Denies dizziness Card Denies chest pain, Denies leg edema, Denies lightheadedness, Denies palpitations, Denies dyspnea, Denies dyspnea on exertion, Denies orthopnea and Denies other (loss of consciousness) Resp Denies cough, Denies dyspnea and Denies dyspnea on exertion GI Denies hematochezia and Denies change in stool character Musc Denies abnormal gait, Denies muscle weakness, Denies numbness, Denies radiating pain into limb and Denies tingling Neuro Denies abnormal gait, Denies dizziness, Denies frequent falls, Denies numbness, Denies tingling and Denies weakness Endo Denies fatigue and Denies palpitations Physical Exam Vital Signs: Last Vital Signs Pulse 72 09/27/22 13:53 BP 122/76 09/27/22 13:53 BMI result Body Mass Index 36.3 Const General: cooperative, comfortable, no acute distress, alert and awake Nutritional Appearance: obese Orientation/consciousness: patient oriented x3 Limitations: ambulation with cane Neck Neck: Yes trachea midline and Yes no JVD Resp Effort & Inspection: normal respiratory effort Auscultation: clear to auscultation bilaterally Cardio Jugular venous distension: no JVD Palpation: normal PMI Rate: regular rate Rhythm: regular rhythm Heart sounds: S1 normal heart sound present, S2 normal heart sound present, no click, no gallops, Murmur heart sound present systolic early and no rubs GI Auscultation: normal bowel sounds Skin General skin exam: no rashes or lesions noted Neuro General: patient oriented x3 and no focal motor deficits Extrem General: No clubbing, No cyanosis and Yes edema (+1 to 2 below knee) Psych Appearance: grossly normal Office Procedures EKG Details: EKG shows normal sinus rhythm with left bundle-branch block, unchanged from before. [id number], Complete Assessment & Plan Assessment & Plan (1) Paroxysmal atrial fibrillation: Code(s): I48.0 - Paroxysmal atrial fibrillation Plan: Highly symptomatic paroxysmal atrial fibrillation without any obvious clinical recurrence at this point time. Currently stable. Continue low-dose atenolol therapy. Continue rhythm control approach. No indication for antiarrhythmic d rug therapy at this point time. Continue full oral anticoagulation, currently on apixaban 5 mg b.i.d.. Quarterly renal function test should be pursued. She has an additional aspirin therapy due to recurrent neurologic events while on Eliquis therapy. Close follow-up for bleeding risk should be pursued. (2) Left bundle branch block: Code(s): I44.7 - Left bundle-branch block, unspecified Plan: Left bundle-branch block which is remained stable. No interventions required. Continue monitor LV ejection fraction every couple years to evaluate for development of cardiomyopathy (3) Aortic stenosis: Code(s): I35.0 - Nonrheumatic aortic (valve) stenosis Plan: Aortic stenosis which is mild. Continue aggressive risk factor modification. Currently on oral anticoagulation therapy. Blood pressure is well optimized. Continue statin therapy with target goal LDL less than 100 mg/dL. No interventions required. Follow-up echocardiogram in 2 years time. Will follow up in the clinic in 1 year's time, sooner p.r.n.. Thank you for allowing me to partake in the care Orders: Orders Basic Metabolic Panel Today I48.0 - Paroxysmal atrial fibrillation Complete Blood Count no Diff Today I48.0 - Paroxysmal atrial fibrillation Coding Level of Care Code Est Pt Level 4 (17999) Diagnoses Paroxysmal atrial fibrillation I48.0 Left bundle branch block I44.7 Aortic stenosis I35.0 CPT Codes EKG - CPT: 20823-[id number], Complete ([id number])
== END 2022-09-27 14:25 | disposition home or self-care (01) ==
PROVIDERS: Visit Provider Internal Medicine Cardiovascular Disease
DX: I48.0 Paroxysmal atrial fibrillation (principal); I44.7 Left bundle-branch block, unspecified; I35.0 Nonrheumatic aortic (valve) stenosis
CPT/HCPCS: 93010; 99214

== ENCOUNTER → 2022-09-27 13:50 | Outpatient (BNVA) | payer MEDICARE, SELFPAY | PROVIDERS: Visit Provider Internal Medicine Cardiovascular Disease | DX: I48.0 Paroxysmal atrial fibrillation (principal); I11.0 Hypertensive heart disease with heart failure; I50.20 Unspecified systolic (congestive) heart failure; I35.0 Nonrheumatic aortic (valve) stenosis; I44.7 Left bundle-branch block, unspecified | CPT/HCPCS: 93005; 99212 ==

== ENCOUNTER 2023-01-09 11:17 | Outpatient (REF) | payer MEDICARE, SELFPAY ==
--- NOTE | ~2023-01-09 | MM_ITS ---
EXAMINATION: MM SCREENING DIGITAL BREAST TOMOSYNTHESIS, BILATERAL CLINICAL INFORMATION: Screening. Asymptomatic. COMPARISON: Mammography: This study is compared with prior exams dating back to 2018. TECHNIQUE: Digital breast tomosynthesis is performed in both the craniocaudal and mediolateral oblique views along with computer-aided detection (CAD). Synthesized 2D images are generated from the tomosynthesis. FINDINGS: There are scattered areas of fibroglandular density (ACR BI-RADS breast composition Category b). There are no significant masses, abnormal calcifications, or other abnormalities. Bilateral, benign calcifications are present in each breast. MM/MM tomosynthesis screening BI IMPRESSION: No mammographic evidence of malignancy. ASSESSMENT: BI-RADS BI-RADS 2 - Benign Findings RECOMMENDATION: Routine annual mammography screening. 1 year F/U This examination should not preclude the clinical evaluation of a suspicious palpable abnormality. This patient's information was entered into a reminder system with a target due date for their next mammogram.
== END 2023-01-09 11:18 | disposition home or self-care (01) ==
LOC: HO.MAMMO 11:17
PROVIDERS: PCP Internal Medicine; Visit Provider Internal Medicine
DX: Z12.31 Encounter for screening mammogram for malignant neoplasm of breast (principal)
CPT/HCPCS: 77063; 77067

== ENCOUNTER → 2023-01-09 11:30 | Outpatient (BNV) | payer MEDICARE, SELFPAY | PROVIDERS: PCP Internal Medicine; Visit Provider Radiology Diagnostic Radiology | DX: Z12.31 Encounter for screening mammogram for malignant neoplasm of breast (principal) | CPT/HCPCS: 77063; 77067 ==

== ENCOUNTER → 2023-08-12 13:01 | Outpatient (REF) | payer MEDICARE, SELFPAY ==
--- NOTE | 2023-08-12 13:06 | CA_ITS ---
Transthoracic Echocardiogram Patient (Last, First, Middle): Gloria Vela T Gender: Female Date of : 1935 Age: 87 Procedure Date: 08/12/2023 Procedure Type: Transthoracic Echocardiogram Location: OP Height: 160.02 cm Weight: 93.9 kg BSA: 1.96 m2 Heart Rate: bpm BP: 130 / 80 mmHg Aircraft Communicator: Referring MD: Jorge Luis Luz MD Symptoms: I35.0 - Nonrheumatic aortic (valve) stenosis Study Quality: Fair ECG Rhythm: Sinus Conclusions: - The left ventricular systolic function is normal. The visually estimated ejection fraction is between 65-70%. - There is moderately increased left ventricular wall thickness. - There is severe calcification of the aortic valve. There is mild aortic valve stenosis. - There is severe mitral annular calcification. Findings Left Ventricle Normal left ventricular cavity size. There is moderately increased left ventricular wall thickness. The left ventricular systolic function is normal. The visually estimated ejection fraction is between 65-70%. There is no evidence of regional wall motion abnormalities. Evidence suggests grade I (mild) diastolic dysfunction. Right Ventricle Normal right ventricular cavity size and systolic function. Atria Both atria are normal in size. Aortic Valve The aortic valve was not well visualized. There is severe calcification of the aortic valve. There is mild aortic valve stenosis. There is no aortic valve regurgitation. Mitral Valve There is severe mitral annular calcification. There is trace mitral valve regurgitation. No definitive mitral stenosis. Pulmonic Valve The pulmonic valve was not well visualized. Tricuspid Valve There is trace tricuspid valve regurgitation. There is no evidence of pulmonary hypertension. Great Vessels The asc aorta is normal in size. Venous The inferior vena cava is normal in size and collapses greater than 50% with inspiration. Pericardium/Pleural There is no evidence of pericardial effusion. Prior Study Comparison No significant change compared to prior study dated: 09/11/2022. Measurements 2D Linear Measurements IVSd: 1.52 0.6-0.9/0.6-1.0 cm LVIDd: 2.86 3.9-5.3/4.2-5.9 cm LVIDd Index: 1.46 2.4-3.2/2.2-3.1 cm/m2 LVIDs: 1.98 2.0-3.6 cm LVPWd: 1.52 0.7-1.1 cm Ao Root: 3.20 2.1-3.5 cm LA Diam: 3.30 2.7-3.8/3.0-4.0 cm LAIDs Index: 1.68 1.5-2.3 cm/m2 LV Mass: 189.26 67-162/88-224 g LV Mass Index: 96.56 43-95/49-115 g/m2 LVOT Diam: 2.00 3.0+(-)1.3 cm 2D Systolic Function EF 4C: 66.90 >55% EF 2C: 57.60 >55% EF BiP: 63.30 >55% Mitral Valve MV VTI: 0.44 MV Pk Wilfredo: 1.88 MV Mn Wilfredo: 1.09 MV Pk Grad: 14.00 MV Mn Grad: 6.00 MV Pk E: 1.12 MV PK A: 1.48 MV Decel Time: 118.00 E/A: 0.80 E'Lateral: 5.87 E'Medial: 4.79 E/E' Med: 23.40 E/E' Lat: 19.10 PHT: 34.00 MVA PHT: 6.47 MVA Continuity: 2.50 Decel [place]: 9.55 Aortic Valve AoV Pk Wilfredo: 2.32 AoV Mn Wilfredo: 1.61 AoV VTI: 0.52 AoV Pk Grad: 22.00 Aov Mn Grad: 12.00 CASEY Cont.VTI: 2.10 LVOT LVOT Pk Wilfredo: 1.57 LVOT Mn Wilfredo: 1.04 LVOT VTI: 0.35 LVOT Pk Grad: 10.00 LVOT Mn Grad: 5.00 LVOT Diam: 2.00 LVOT Area: 3.14 Diastolic Function MV Pk E: 1.12 MV Pk A: 1.48 E/A: 0.80 E'Medial: 4.79 E/E' Med: 23.40 E' Laterial: 5.87 E/E' Lat: 19.10 Right Ventricle TAPSE (mm): 21.00 TVS' Wilfredo: 12.00 Tricuspid Valve TR Pk Wilfredo: 2.13 TR Pk Grad: 18.00 RA Press: 3.00 RVSP: 21.00 Great Vessels Aorta Ao Root-2D: 3.20 2.0-3.7 cm Ao Asc: 3.40 2.1-3.4 cm Pulmonary Valve PV Pk Wilfredo: 1.26 Peak PV Grad: 6.00 Updated in Other Vendor System with Status of Final Migue Umaña MD electronically signed on 08/13/2023 11:00:51 AM with status of Final
== END ==
LOC: HO.CARD 13:01
PROVIDERS: PCP Internal Medicine; Visit Provider Internal Medicine Cardiovascular Disease
DX: I35.0 Nonrheumatic aortic (valve) stenosis (principal); I10 Essential (primary) hypertension; I44.7 Left bundle-branch block, unspecified; I48.0 Paroxysmal atrial fibrillation
CPT/HCPCS: 93306

== ENCOUNTER → 2023-08-12 13:06 | Outpatient (BNV) | payer MEDICARE, SELFPAY | PROVIDERS: PCP Internal Medicine; Visit Provider Internal Medicine | DX: I35.0 Nonrheumatic aortic (valve) stenosis (principal); I34.81 Nonrheumatic mitral (valve) annulus calcification | CPT/HCPCS: 93306 ==

== ENCOUNTER 2023-10-01 12:31 | Outpatient (AMB) | payer MEDICARE, SELFPAY ==
--- NOTE | 2023-10-01 12:32 | A.OFFVIS_ITS ---
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 Required: No Car Mechanic: Car Mechanic Present Accompanied by: Spouse Allergies ezetimibe [Zetia] Allergy (Unknown, Verified 11/18/21 12:51) muscle aches simvastatin Adverse Reaction (Unknown, Verified 11/18/21 12:51) myopathy statins Allergy (Unknown, Uncoded 11/18/21 12:51) muscle aches Medication List - Last Reconciled 10/01/23 by Jorge Luis Luz MD apixaban 5 mg PO BID aspirin (Adult Aspirin Regimen) 81 mg PO DAILY atenolol 25 mg PO DAILY calcium carbonate (Calcium 500) 500 mg PO DAILY cholecalciferol (vitamin D3) 25 mcg PO DAILY rosuvastatin 5 mg PO DAILY HPI Comments Details: Gloria comes for follow-up. She has been having increased leg swelling with weeping wounds in the last few or 4 days. She says she started drinking more water to make it better. She is not currently wearing compression stocking. She is minimally functional or active with leg dependent position. She is scheduled to see lymphedema clinic in [place]. She has no orthopnea, PND. No exertional chest pain. No prolonged palpitation irregular heartbeat. No bleeding issues or neurologic events. Recent echocardiogram shows mild aortic stenosis. [facility], [facility] Medical History HTN (hypertension) Left bundle branch block Paroxysmal atrial fibrillation Surgical History Hx of parathyroidectomy Hx of hysterectomy Hx laparoscopic cholecystectomy Family History Father CVD (cardiovascular disease) Mother CVD (cerebrovascular disease) Social History Alcohol intake: never Patient Tobacco Use Status: Former Tobacco user Review of Systems Const Denies chills, Denies fatigue, Denies fever(s), Denies frequent falls, Denies weakness, Denies weight gain and Denies weight loss ENT Denies dizziness Card Denies chest pain, Denies leg edema, Denies lightheadedness, Denies palpitations, Denies dyspnea, Denies dyspnea on exertion, Denies orthopnea and Denies other (loss of consciousness) Resp Denies cough, Denies dyspnea and Denies dyspnea on exertion GI Denies hematochezia and Denies change in stool character Musc Denies abnormal gait, Denies muscle weakness, Denies numbness, Denies radiating pain into limb and Denies tingling Neuro Denies abnormal gait, Denies dizziness, Denies frequent falls, Denies numbness, Denies tingling and Denies weakness Endo Denies fatigue and Denies palpitations Physical Exam Vital Signs: Last Vital Signs Pulse 68 10/01/23 12:33 BP 136/80 10/01/23 12:33 BMI result Body Mass Index 36.7 Const General: cooperative, comfortable, no acute distress, alert and awake Nutritional Appearance: obese Orientation/consciousness: patient oriented x3 Limitations: ambulation with cane Neck Neck: Yes trachea midline and Yes no JVD Resp Effort & Inspection: normal respiratory effort Auscultation: clear to auscultation bilaterally Cardio Jugular venous distension: no JVD Palpation: normal PMI Rate: regular rate Rhythm: regular rhythm Heart sounds: S1 normal heart sound present, S2 normal heart sound present, no click, no gallops, Murmur heart sound present systolic early and no rubs GI Auscultation: normal bowel sounds Skin General skin exam: no rashes or lesions noted Neuro General: patient oriented x3 and no focal motor deficits Extrem General: No clubbing, No cyanosis and Yes edema (Three to 4+ below knee edema with weeping blisters) Psych Appearance: grossly normal Office Procedures EKG Details: EKG shows normal sinus rhythm with left bundle-branch block, unchanged from before [id number], Complete Assessment & Plan Assessment & Plan (1) Paroxysmal atrial fibrillation: Code(s): I48.0 - Paroxysmal atrial fibrillation Category: Medical Plan: Highly symptomatic paroxysmal atrial fibrillation without any obvious clinical recurrence at this point time. Continue rhythm control approach. Continue atenolol therapy. Avoidance of stimulants was discussed. Continue full oral anticoagulation, currently on apixaban 5 mg b.i.d.. Quarterly renal function test should be pursued. No indication for antiarrhythmic drug therapy. Continue aggressively blood pressure control. (2) Left bundle branch block: Code(s): I44.7 - Left bundle-branch block, unspecified Category: Medical Plan: Left bundle-branch block which is chronic and stable. No change in therapy. Continue monitor clinically with annual EKGs. (3) Aortic stenosis: Code(s): I35.0 - Nonrheumatic aortic (valve) stenosis Category: Medical Plan: Aortic stenosis which is mild. Has not progressed for few years. Echo every couple of years. Continue aggressive risk factor modification. Continue statin therapy with target goal LDL less than 100 mg/dL. Continue aggressive blood pressure control. (4) Leg edema: Code(s): R60.0 - Localized edema Plan: Bilateral leg edema which appears to be more related to peripheral venous hypertension with leg dependent position. This is not suggestive of congestive heart failure. However given her significant leg edema will prescribe Lasix 20 mg for short period time. This is not a long-term therapy. Most important benefit from compression stockings. This was discussed with her. Follow-up with lymphedema clinic. Importance of treating leg edema to reduce risk of ulcers and cellulitis was discussed. Will follow up in the clinic in 1 year's time, sooner p.r.n.. Thank you for allowing me to partake in her care Medications: New furosemide (Lasix) 20 mg PO DAILY PRN 14 tabs 2RF Leg swelling Coding Level of Care Code Est Pt Level 4 (88647) Diagnoses Paroxysmal atrial fibrillation I48.0 Left bundle branch block I44.7 Aortic stenosis I35.0 Leg edema R60.0 CPT Codes EKG - CPT: 02642-[id number], Complete ([id number])
[2023-10-01 12:33] VITALS: BP 136/80; PULSE 68; BMI 36.7
== END 2023-10-01 13:04 | disposition home or self-care (01) ==
PROVIDERS: PCP Internal Medicine; Visit Provider Internal Medicine Cardiovascular Disease
DX: I48.0 Paroxysmal atrial fibrillation (principal); I44.7 Left bundle-branch block, unspecified; I35.0 Nonrheumatic aortic (valve) stenosis; R60.0 Localized edema
CPT/HCPCS: 93010; 99214

== ENCOUNTER → 2023-10-01 12:31 | Outpatient (BNVA) | payer MEDICARE, SELFPAY | PROVIDERS: PCP Internal Medicine; Visit Provider Internal Medicine Cardiovascular Disease | DX: I44.7 Left bundle-branch block, unspecified (principal); I48.0 Paroxysmal atrial fibrillation; I10 Essential (primary) hypertension; I35.0 Nonrheumatic aortic (valve) stenosis; R60.0 Localized edema | CPT/HCPCS: 93005; 99212 ==

== ENCOUNTER → 2023-11-21 10:12 | Outpatient (REF) | payer MEDICARE, SELFPAY ==
--- NOTE | 2023-11-21 10:15 | HM_ITS ---
* Total monitoring time 3 days. * Average ventricular rate 59/Min. About 62% of the time, rate < 60/Min. * Rare supraventricular ectopy. * No significant pauses or high-grade AV blocks. * No patient markers or diary events. MTDD
== END ==
LOC: HO.CARD 10:12
PROVIDERS: Visit Provider Internal Medicine Cardiovascular Disease
DX: I48.0 Paroxysmal atrial fibrillation (principal)
CPT/HCPCS: 93242

== ENCOUNTER → 2023-11-21 10:15 | Outpatient (BNV) | payer MEDICARE, SELFPAY | PROVIDERS: Visit Provider Internal Medicine | DX: I47.10 Supraventricular tachycardia, unspecified (principal) | CPT/HCPCS: 93244 ==

== ENCOUNTER 2024-02-05 12:48 | Outpatient (REF) | payer MEDICARE, SELFPAY ==
--- NOTE | ~2024-02-05 | MM_ITS ---
EXAMINATION: MM SCREENING DIGITAL BREAST TOMOSYNTHESIS, BILATERAL CLINICAL INFORMATION: Screening. Asymptomatic. COMPARISON: Mammography: Comparison is made with available priors TECHNIQUE: Digital breast mammography with tomosynthesis is performed in both the craniocaudal and mediolateral oblique views along with computer-aided detection (CAD). FINDINGS: The breasts are heterogeneously dense, which may obscure small masses (ACR BI-RADS breast composition Category c). Bilateral benign calcifications are stable. There are no significant masses, abnormal calcifications, or other abnormalities. MM/MM tomosynthesis screening BI IMPRESSION: No mammographic evidence of malignancy. ASSESSMENT: BI-RADS BI-RADS 2 - Benign Findings RECOMMENDATION: Routine annual mammography screening. 1 year F/U This examination should not preclude the clinical evaluation of a suspicious palpable abnormality. This patient's information was entered into a reminder system with a target due date for their next mammogram. Electronically signed by: Sherita Hercules DO 02/11/2024 03:28 PM MADDY
--- OUTSIDE RECORDS SUMMARY | 2024-02-11 19:16 | XMS_ITS | Continuity of Care Document ---
Author Organization [facility] Ernst Romel lt Address [address] [place] [address]- Care Team Providers Care Fish Grader Name Role Phone Asiya PASCUAL, Bolivar Snyder Primary Care Physician [place] [facility] [place] 01[place]31/24 [facility] [place] [address] [place] [address]- Encounter Type: Triage Allergies, Adverse Reactions, Alerts Substance Criticality Severity Reaction Reaction Severity Status EPINEPHrine Active Immunizations Given and Recorded Vaccine Date Status Refusal Reason influenza virus vaccine, inactivated 12/13/23 Give n influenza virus vaccine, inactivated 01/11/23 Joselito rded influenza virus vaccine, inactivated 1 11/23/21 Gi carrie influenza virus vaccine, inactivated 01/23/21 Joselito rded influenza virus vaccine, inactivated 2 12/08/19 Gi carrie influenza virus vaccine, inactivated 12/25/17 Give n influenza virus vaccine, inactivated 11/11/16 Give n influenza virus vaccine, inactivated 11/08/16 Joselito rded influenza virus vaccine, inactivated 11/28/15 Joselito rded SARS-CoV-2(COVID-19)mRNA-LNP vac([id number]) 12/15/22 Recorded pneumococcal 20-valent conjugate vaccine 08/28/22 Given [id number] 12y+ bivalent booster vax 08/01/22 Recorded [id number] 12y+ bivalent booster vax 12/10/21 Recorded SARS-CoV-2 mRNA (mejmyar-dsai-zwbrz) vax 06/14/21 Recorded SARS-CoV-2 (COVID-19) mRNA BNT-162b2 vac 12/29/20 Recorded SARS-CoV-2 (COVID-19) mRNA BNT-162b2 vac 06/02/20 Given SARS-CoV-2 (COVID-19) mRNA BNT-162b2 vac 05/12/20 Given zoster vaccine, inactivated 03/26/20 Recorded zoster vaccine, inactivated 01/20/20 Recorded Influenza Virus Vaccine (oldterm) 02/04/19 Recorde d Pneumococcal Vacc (oldterm) 3 03/13/17 Given Diphtheria/Tet/Pertussis, Acel (oldterm) 03/13/17 Given pneumococcal 13-valent vaccine 11/11/15 Given pneumococcal 13-valent vaccine 11/10/15 Recorded Zostavax (oldterm) 06/12/15 Given 1Early/Late Reason: Early/Late Reason: Other : post doc 2Result Comment: [id number] 3Admin Note: pnrum 23 Medications aspirin 81 mg oral delayed release tablet 81 mg, 1, tablet, By Mouth, Daily, Refills 0, Maintenance, 03/11/18 8:21:43 AM EST Start Date: 03/11/18 Status: Ordered Repeat number: 1 atenolol 25 mg oral tablet 1, tablet, By Mouth, Daily, INSTR: MUST BE TEVA BRAND., # 90 tablet, Refills 1, Maintenance, 10/02/23 4:03:00 PM EDT, Route to Pharmacy Electronically, [facility], 160, cm, 03/26/23 14:17:00 EST, Height Start Date: 10/02/23 Status: Ordered Quantity: 90.0 Unit: tablet Repeat number: 1 calcium carbonate 600 mg oral tablet 2 tablet = 1,200 mg, By Mouth, Daily, 0 Refills, Maintenance, 11/10/19 1:57:00 PM EDT Start Date: 11/10/19 Status: Ordered Repeat number: 1 Eliquis 5 mg oral tablet See Instructions, TAKE ONE TABLET BY MOUTH TWICE A DAY, # 180 tablet, 3 Refills, Maintenance, 10/03/23 7:28:00 AM EDT, [facility], 160, cm, 03/26/23 14:17:00 EST, Height Start Date: 10/03/23 Status: Ordered Quantity: 180.0 Unit: tablet Repeat number: 1 Flonase 50 mcg/inh nasal spray 2 sprays, Nares, Both, Daily in AM, 0 Refills, Maintenance, 08/14/22 1:01:00 PM EDT, [place], Partial fill upon patient request if the prescription is for a schedule II opioid drug. Start Date: 08/14/22 Status: Ordered Repeat number: 1 furosemide 20 mg oral tablet 20 mg, 1, tablet, By Mouth, Refills 0, Maintenance, 10/03/23 2:22:00 PM EDT, Partial fill upon patient request if the prescription is for a schedule II opioid drug. Start Date: 10/03/23 Status: Ordered Repeat number: 1 nystatin topical [id number] u/gm powder 1 application, Topically, 2 times a day, # 60 Gm, 11 Refills, Maintenance, 12/13/23 11:24:00 AM EDT, Powder, [facility], 1 application Topically 2 times a day, 160, cm, 12/13/23 10:54:00 EDT, Height Start Date: 12/13/23 Status: Ordered Quantity: 60.0 Unit: g Repeat number: 12 rosuvastatin 5 mg oral tablet 1 tablet, By Mouth, Daily, # 90 tablet, 1 Refills, Maintenance, 10/02/23 4:49:00 PM EDT, [id number], 160, cm, 03/26/23 14:17:00 EST, Height Start Date: 10/02/23 Status: Ordered Quantity: 90.0 Unit: tablet Repeat number: 1 Vitamin D3 2000 intl units oral tablet By Mouth, Daily, 0 Refills, Maintenance, 11/10/19 1:56:00 PM EDT Start Date: 11/10/19 Status: Ordered Repeat number: 1 Problem List Condition Confirmation Course Effective Dates Status Health Status Informant Adenomatous polyp of colon 1 Confirmed Active Aortic sclerosis Confirmed Active Retinal artery occlusion, branch Confirmed Active Benign hypertension 2 Confirmed Active Spondylosis, cervical Confirmed Active Complete uterovaginal prolapse Confirmed Active Fungal rash of torso Confirmed Active Diverticulosis 3 Confirmed Active Dry skin dermatitis Confirmed Active Rash Confirmed Active H/O urinary incontinence Confirmed Active History of colonoscopy 4 Confirmed Active Hypercholesterolemia Confirmed Active Hyperparathyroidism 5 Confirmed Active Internal hemorrhoid 6, 7 Confirmed Active Bundle branch block, left Confirmed Active Chronic anticoagulation Confirmed Active Variants of migraine Confirmed Active Osteoarthritis of both knees Confirmed Active Osteopenia 8 Confirmed Active Left leg pain Confirmed Active Paroxysmal atrial fibrillation Confirmed Active History of MRI of brain and brain stem 9 Confirmed Active Severe obesity (BMI 35.0-39.9) with comorbidity Confirmed Active Swelling of lower extremity Confirmed Active Vaginal spotting Confirmed Active Venous stasis syndrome Confirmed Active 1Last colonoscopy 2015 revealed small tubular adenoma. Patient was told by GI specialist, Dr. Trinh no further colonoscopies. 2Echocardiogram 2016 ejection fraction 60-65% grade 2 diastolic dysfunction, severe mitral valve calcifications. 3colo 2015 12178 aged out 5Status post removal of likely parathyroid adenoma 2010 6error 2016 colo 7colo 2017 8Followed by rheumatology, [facility] 9Status post MRI brain with hospital admission January 2017 revealing old left basal ganglia lacunar infarct. Social History Social History Type Response Smoking Status Former smoker; Other : quit smoking age 29; entered on: 03/13/17 Sex Sex Representation Female (finding) Patient Care team information Care Team Personnel Name: Asiya PASCUAL, Bolivar Snyder Position: [facility] Physician - Primary Care Member Role: PCP Address: [address] [place] [address]- Telecom: Name: Tala Silva RN Position: [facility] RN Member Role: Primary Care Nurse Care Team Related Persons Name: ELIZA WHITAKER Insurance Providers Guarantor name: MELO WHITAKER Health Plan Information #: 1 Payer: MEDICARE PART B OUTPT Member Number: NA Policy Number: NA Group Number: NA Health Plan Information #: 2 Payer: MEDEX Member Number: NA Policy Number: NA Group Number: NA
--- OUTSIDE RECORDS SUMMARY | 2024-02-11 19:16 | XMS_ITS ---
Author Organization [facility] sudeep [place] Address [address] [place] [address] Care Team Providers Care Reports Developer Name Role Phone Bolivar Braden MD Primary Care Provider Vel Alatorre Unavailable [phone] Allergies Allergen (clinical drug ingredient) Drug/Non Drug Allergy documented on EMR Reaction Allergy Type Onset Date Status EPINEPHrine Unknown Drug Allergy Activ e REASON FOR VISIT Painful nail(s) aggrevated by shoes and causing difficulty standing/walking. Medications Medication SIG (Take, Route, Frequency, Duration) Notes Start Date End Date Status Keflex 500 MG 1 capsule Orally every 12 hrs for 7 days 06/19/2016 Not-Taking Keflex 500 MG 1 capsule Orally every 12 hrs for 5 days 07/07/2015 Not-Taking Atorvastatin Calcium Not-Taking Niacin Not-Taking Lasix 20 MG 1 tablet Orally Once a day Not-Taking Vitamin D 1000 UNIT 1 tablet Orally Once a day for 30 day(s) Active lasix Not-Taking hydroCHLOROthiazide Not-Taking PreviDent Not-Taking Prevent Tooth/Gum [place] Not-Taking Rosuvastatin Calcium 5 MG 1 tablet Orally Active Aspir-Low 81 MG 1 tablet Orally Once a day for 30 day(s) Active Atenolol 25 MG 1 tablet Orally Once a day for 30 day(s) Active Calcium 1200mg 2 tab Once a day Active Eliquis 5 MG Orally Active Zetia 10 MG 1 tablet Orally Once a day for 30 day(s) Not-Taking Citracal Calcium+D 600-40-50 0 MG-MG-UNIT as directed Orally Not-Raghu ibarra Social History Tobacco Use: Social History Observation Description Date Details (start date - stop date) Former Smoker NA - NA Tobacco Use/Smoking Question Answer Notes Are you a: former smoker Additional Findings: Tobacco Non-User Current no n-smoker Alcohol Screen Question Answer Notes Did you have a drink containing alcohol in the p ast year? No Points 0 Interpretation Negative Tobacco use other than smoking: Question Answer Notes Are you an other tobacco user? No Problems Problem Type SNOMED Code ICD Code Onset Dates Problem Status W/U Status Risk Notes Problem 895001500 Lymphedema (I89.0) Active confirmed Vital Signs Height 5 ft 3 in in 07/31/2023 Weight 202 lbs 07/31/2023 BMI 35.78 kg/m2 07/31/2023 Blood pressure systolic 119 mm Hg 07/31/19 24 Blood pressure diastolic 70 mm Hg 024 Encounters Encounter Location Date Provider Diagnosis [facility] [place] [address] [place] [address] 07/31/2023 Vel Brito Unspecified atherosclerosis of [place] arteries of extremities, bilateral legs I70.203 ; Tinea unguium B35.1 ; Xerosis cutis L85.3 ; Pain in right toe(s) M79.674 ; Pain in left toe(s) M79.675 ; Ingrowing nail L60.0 and Lymphedema I89.0 Assessments Encounter Date Diagnosis (ICD Code) Assessment Notes Treatment Notes Treatment Clinical Notes Section Notes 07/31/2023 Unspecified atherosclerosis of [place] arteries of extremities, bilateral legs (ICD-10 - I70.203) 07/31/2023 Tinea unguium (ICD-10 - B35.1) 07/31/2023 Xerosis cutis (ICD-10 - L85.3) 07/31/2023 Pain in right toe(s) (ICD-10 - M79.674) 07/31/2023 Pain in left toe(s) (ICD-10 - M79.675) 07/31/2023 Ingrowing nail (ICD-10 - L60.0) 07/31/2023 Lymphedema (ICD-10 - I89.0) Plan Of Treatment Next Appt Details Follow Up: 3 Months, Reason: Provider Name:Kristen nettles, 03/09/2024 11:30:00 AM, [address] [place], [address], Procedure Notes * Category Sub-Category Detail Notes [...] as necessary. Patient chooses, no pharmaceutical tx (51576) Keratoma Treatment Parring or Cutting o f Benign Hyperkeratotic Lesion(s) 94418 ( >4 Lesions) - The Benign hyperkeratotic lesions, as described above were pared, and/or cut utilizing a sterile #15 blade, tissue nippers, and/or dremel, Q8 Progress Notes * Gloria WHITAKER TDOB: 7 (87 yo F)Acc No.[id number]:07/31/2023 Progress Note Patient:?DaneJyothiGloria Beto Provider:?Vel Brito DPM :1935???Age:87 Y???Sex:Female D ate:07/31/2023 Address:[address] [place], [place] [id number] Pcp:Bolivar Braden MD Subjective: * Chief Complaints: * ??? Painful nail(s) aggrevat ed by shoes and causing difficulty standing/walking. * HPI: ???Painful Nails:?Pt States Last PCP Visit:?Date:?07/03/2023 ???Skin problems:?Nature:?dryness.?Location:?B/L .?Duration:?several months.?Treatments:?na with cream.?Foot Pain:?Nature:?swelling.?Location:?B/L.?Duration:?several years.?Course:?worse.? * ROS:?General/Constitutional:?Nausea?denies.?Vomiting?denies.?Hunger Thirst?denies.?Loss appetite?denies.?Chills?denies.?Fatigue?denies.?Fever?denies.?Night Sweats?denies.?Unexplained weight loss?denies.?Unexplained weight gain?denies.?HEENTM:?Dentures?denies.?Dizziness?denies.?Glasses/contacts?admits.?Retinopathy?de nies.?Blurred/double vision?denies.?TMJ?denies.?Discharge/drainage?denies.?Implants?denies.?Sore throat?denies.?Dental implants?denies.?Hard of hearing ?denies.?Difficulty chewing/swallowing/speaking?denies.?Nose bleeds?denies.?Sore mouth?denies.?Respiratory:?On Oxygen?denies.?Pneumonia/pleurisy?denies.?Bronchitis?denies.?Emphysema?denies.?C oughing?denies.?Cough blood?denies.?Shortness of breath?denies.?Wheezing?denies.?Cardiovascular:?Pacemaker?denies.?MVP?denies.?WPW?denies.?CHF?denies.?Heart attack?denies.?Septal defect?denies.?Rapid beat?denies.?Chest pain ?denies.?Atrial Fib.?denies.?Murmur/Palpitations?denies.?Gastrointestinal:?Hemorrhoids?denies.?Stomach/Abdominal pain?denies.?Dark blood stool?denies.?Irritable bowel ?denies.?Constipation?denies.?Diarrhea?denies.?Hematology:?Swelling?denies.?Clots?denies.?Varicose Veins?denies.?Bruising?denies.?Bleeding problem?denies.?Genitourinary:?Blood urine?denies.?Frequent/Painfu/urination/bladder control?denies.?Kidney stones?denies.?Infection (UTI)?denies.?Nephropathy?denies.?sex trans dis (STD)?denies.?Prostate?denies.?Musculoskeletal:?Hammertoes?denies.?Bunions?denies.?Back Pain?denies.?Muscle Cramps/ Resting?denies.?Muscle cramps / walking?denies.?Generalized aches and pains?denies.?Weakness?denies.?Integ.:?Young?denies.?Scars?denies.?Corns/calluses?denies.?Ingrown nails?denies.?Painful nails?denies.?Open Sores?denies.?Rashes?denies.?Neurologic:?Difficulty sleeping?denies.?Brain disorder?denies.?Numbness?denies.?Balance trouble?denies.?Confusion?denies.?Fainting/blackouts?denies.?Tingling?denies.?Tr emors?denies.? * Medical History:? 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 * Social History:?Tobacco Use:?Tobacco Use/Smoking?Are you a:?former smoker ?Additional Findings: Tobacco Non-User?Current non-smoker ?Tobacco use other than smoking?Are you an other tobacco user??No ???Drugs/Alcohol:?Drugs?Have you used drugs other than those for medical reasons in the past 12 months??No ?Alcohol Screen?Did you have a drink containing alcohol in the past year??No ?Points?0 ?Interpretation?Negative * Medications:?TakingAspir-Low 81 MG Tablet Delayed Release 1 tablet Orally Once a dayAtenolol 25 MG Tablet 1 tablet Orally Once a dayCalcium 1200mg 2 tab Once a dayEliquis 5 MG Tablet Orally Rosuvastatin Calcium 5 MG Tablet 1 tablet Orally Vitamin D 1000 UNIT Tablet 1 tablet Orally Once a dayTaking Aspir-Low 81 MG Tablet Delayed Release 1 tablet Orally Once a dayTaking Atenolol 25 MG Tablet 1 tablet Orally Once a dayTaking Calcium 1200mg 2 tab Once a dayTaking Eliquis 5 MG Tablet Orally Taking Rosuvastatin Calcium 5 MG Tablet 1 tablet Orally Taking Vitamin D 1000 UNIT Tablet 1 tablet Orally Once a dayNot-Taking/PRNlasix hydroCHLOROthiazide PreviDent Prevent Tooth/Gum [place] Lasix 20 MG Tablet 1 tablet Orally Once a dayKeflex 500 MG Capsule 1 capsule Orally every 12 hrsKeflex 500 MG Capsule 1 capsule Orally every 12 hrsAtorvastatin Calcium Niacin Zetia 10 MG Tablet 1 tablet Orally Once a dayCitracal Calcium+D 600-40-500 MG-MG-UNIT Tablet Extended Release 24 Hour as directed Orally Medication List reviewed and reconciled with the patientNot-Taking/PRN lasix Not-Taking/PRN hydroCHLOROthiazide Not-Taking/PRN PreviDent Not-Taking/PRN Prevent Tooth/Gum [place] Not-Taking/PRN Lasix 20 MG Tablet 1 tablet Orally Once a dayNot-Taking/PRN Keflex 500 MG Capsule 1 capsule Orally every 12 hrsNot-Taking/PRN Keflex 500 MG Capsule 1 capsule Orally every 12 hrsNot-Taking/PRN Atorvastatin Calcium Not-Taking/PRN Niacin Not-Taking/PRN Zetia 10 MG Tablet 1 tablet Orally Once a dayNot-Taking/PRN Citracal Calcium+D 600-40-500 MG-MG-UNIT Tablet Extended Release 24 Hour as directed Orally Medication List reviewed and reconciled with the patient * Allergies:?EPINEPHrineyes[Al steven Verified] Objective: * Vitals:?Ht: 5 ft 3 in, Wt:20 2, BMI:35.78, Shoe size:7.5, BP:119/70 mm Hg. * Examination: ???Nails: ?NAILS are:?elongated,overgrown,dystrophic,greater than 3mm thick,discolored and friable with crumbly malodorous subungual debris, with pain on palpation, 1-5 B/L.?Vascular: ?DP PULSES:? 0/4, B/L.?PT PULSES:? 0/4, B/L.?CAPILLARY FILL TIME:? delayed, all digits, B/L.?HAIR GROWTH/TEXTURE/ELASTICITY/TURGOR:? decreased, B/L.?PIGMENTATION:? rubrous, B/L.?EDEMA:? 3/4, B/L, Feet, Ankle(s), Leg(s).?Dermatologic: ?SKIN FINDINGS:? Skin exam reveals Keratotic lesion(s) located at, TA, T5, T8, SUB MTH (s), 1, B/L , Skin exam reveals Keratotic lesion(s) located at, Plantar, Heel(s), B/L , Skin shows sign(s) of, dryness, scaling, in a stocking fashion, no fissure(s) present, B/L.?General Examination: ?GENERAL APPEARANCE:?Reveals a pleasant, alert, well nourished, well developed, well hydrated individual, who demonstrates proper attention to hygene/body habitus, and is in no acute distress.?ORIENTED:?person, place, and time.?Orthopedic: ?MUSCLE STRENGTH:?5/5 all groups in a symmetrical fashion , B/L.?BUNION:? Medially prominent 1st MPJ, B/L, Lateral tracking 1st MPJ reducable.? Assessment: * Assessment: 1.?Tinea unguium - B35.1?2.? Unspecified atherosclerosis of [place] arteries of extremities, bilateral legs - I70.203 (Primary)?3.?Xerosis cutis - L85.3?4.?Pain in right toe(s) - M79.674?5.?Pain in left toe(s) - M79.675?6.?Ingrowing nail - L60.0 7.?Lymphedema - I89.0? Plan: * Treatment: * Procedures:?Debride Nail 6-10:?Nail debridement?Nail debridement performed extensively to reduce/remove overall nail length and girth, subungual debris, and necrotic tissue, by manual and electrical means with use of a nail nipper and/or dremel, to more viable healthy nail plate or bed tissue 6-10. Silver nitrate used for any petechial bleeding as necessary. Patient chooses, no pharmaceutical tx (39014).?Keratoma Treatment:?Parring or Cutting of Benign Hyperkeratotic Lesion(s)?35814 ( >4 Lesions) - The Benign hyperkeratotic lesions, as described above were pared, and/or cut utilizing a sterile #15 blade, tissue nippers, and/or dremel, Q8.? * Procedure Codes:?43030 DEBRI DE NAIL, 6 OR MORE, Modifiers: XS 22184 TRIM SKIN LESIONS, OVER 4, Modifiers: Q8 * Preventive Medicine:? ??Counseling:?Discussion:?-12: Office or other outpatient visit for the evaluation and management of an established patient, which required a medically appropriate history and/or examination and STRAIGHTFORWARD level of MEDICAL DECISION MAKING, 1 SELF-LIMITED OR MINOR PROBLEM, MINIMAL- NO AMOUNT/COMPLEXITY OF DATA TO BE REVIEWED/ANALYZED, AND MINIMAL RISK OF COMPLICATION/MORBIDITY. The visit on the day of the encounter encompassed interpreting the data and educating the patient as to the nature of their condition, treatment options available according to their individual PMH, meds, allergies, and overall health/living conditions, as well as any potential risks or complications that may occur from a failure to adhere to, and participate in, the recommended course of therapy. The discussion included a complete verbal, and/or written explanation of the examination results, any x-rays taken, the proposed diagnosis, and outline of the treatment plan. A schedule for future care needs was also explained. The patient verbalized an understanding of the instructions at this time and agreed to be an active participant in their treatment. If the patient should think of any questions or concerns after the visit, I have encouraged the patient to call the office.?Consult:?The Pt. was counseled on the diagnosis, treatment options, and the need for a lymphedema consult--pt to call for appt.? * Follow Up:?3 Months * Images: * Sign off status: Completed true * Provider:?Vel Brito DPM Date:? 024 Generated for Tristian cochran/Parth/eTgiovanismitting on:?02/11/2024 07:16 PM EST History and Physical Notes * [...] person, place, and t nick Vascular DP PULSES(B): 0/4, B/L PT PULSES(B): 0/4, B/L CAPILLARY FILL TIME: delayed, all digits , B/L TROPHIC CONDITION-TEXTURE/EL ASTICITY/TURGOR/HAIR GROWTH(B): decreased, B/L EDEMA(C): 3/4, B/L, Feet, Ankl e(s), Leg(s) PIGMENTATION: rubrous, B/L Nails NAILS are: elongated,overgr own,dystrophic,greater than 3mm thick,discolored and friable with crumbly malodorous subungual debris, with pain on palpation, 1-5 B/L
--- OUTSIDE RECORDS SUMMARY | 2024-02-11 19:16 | XMS_ITS | Continuity of Care Document ---
Author Organization [facility] Max Dukes Romel lt Address [address] [place] [address]- Care Team Providers Care Private Security Guard Name Role Phone Asiya PASCUAL, Bolivar Snyder Primary Care Physician [facility]counter [facility] Date(s): 12/13/23 - 01/12/24 [facility] [place] Adult [address] [place] [address]- Allergies, Adverse Reactions, Alerts Substance Reaction Severity Status EPINEPHrine Active Immunizations Given [...] virus vaccine, inactivated 11/28/15 Joselito rded SARS-CoV-2(COVID-19)mRNA-LNP vac([id number]) 12/15/22 Recorded pneumococcal 20-valent conjugate vaccine 08/28/22 Given XQEQ-DcZ-0rDWV 12y+ bivalent booster vax 08/01/22 Recorded ULTQ-RiC-0hFMY 12y+ bivalent booster vax 12/10/21 Recorded SARS-CoV-2 mRNA (lepeaaz-lltx-dthdj) vax 06/14/21 Recorded SARS-CoV-2 (COVID-19) mRNA BNT-162b2 [...] Reason: Other : post doc 2Result Comment: [id number] 3Admin Note: pnrum 23 Medications aspirin 81 mg oral delayed release tablet 81 mg, 1, tablet, By Mouth, Daily, Refills 0, Maintenance, 03/11/18 8:21:43 EST Start Date: 03/11/18 Status: Ordered atenolol 25 mg oral tablet 1, tablet, By Mouth, Daily, INSTR: MUST BE TEVA BRAND., # 90 tablet, Refills 1, Maintenance, 10/02/23 16:03:00 EDT, Route to Pharmacy Electronically, [facility], 160, cm, 03/26/23 14:17:00 EST, Height Start Date: 10/02/23 Status: Ordered calcium carbonate 600 mg oral tablet 2 tablet = 1,200 mg, By Mouth, Daily, 0 Refills, Maintenance, 11/10/19 13:57:00 EDT Start Date: 11/10/19 Status: Ordered Eliquis 5 mg oral tablet See Instructions, TAKE ONE TABLET BY MOUTH TWICE A DAY, # 180 tablet, 3 Refills, Maintenance, 10/03/23 7:28:00 EDT, [facility], 160, cm, 03/26/23 14:17:00 EST, Height Start Date: 10/03/23 Status: Ordered Flonase 50 mcg/inh nasal spray 2 sprays, Nares, Both, Daily in AM, 0 Refills, Maintenance, 08/14/22 13:01:00 EDT, [place], Partial fill upon patient request if the prescription is for a schedule II opioid drug. Start Date: 08/14/22 Status: Ordered furosemide 20 mg oral tablet 20 mg, 1, tablet, By Mouth, Refills 0, Maintenance, 10/03/23 14:22:00 EDT, Partial fill upon patient request if the prescription is for a schedule II opioid drug. Start Date: 10/03/23 Status: Ordered nystatin topical 148485 u/gm powder 1 application, Topically, 2 times a day, # 60 Gm, 11 Refills, Maintenance, 12/13/23 11:24:00 EDT, Powder, [facility], 1 application Topically 2 times a day, 160, cm, 12/13/23 10:54:00 EDT, Height Start Date: 12/13/23 Status: Ordered rosuvastatin 5 mg oral tablet 1 tablet, By Mouth, Daily, # 90 tablet, 1 Refills, Maintenance, 10/02/23 16:49:00 EDT, [facility], 160, cm, 03/26/23 14:17:00 EST, Height Start Date: 10/02/23 Status: Ordered Vitamin D3 2000 intl units oral tablet By Mouth, Daily, 0 Refills, Maintenance, 11/10/19 13:56:00 EDT Start Date: 11/10/19 Status: Ordered Problem List Condition Confirmation Course Effective Dates [...] dysfunction, severe mitral valve calcifications. 3colo 2015 98153 aged out 5Status post removal of likely parathyroid adenoma 2010 6error 2016 colo 7colo 2018 8Followed by rheumatology, [place] 9Status post MRI brain with hospital admission January 2017 revealing old left basal ganglia lacunar infarct. Social History Social History Type Response Smoking Status Former smoker; Other : quit smoking age 29; entered on: 03/13/17 Sex Patient Care team information Care Team Personnel Name: Bolivar Braden MD Position: [facility] Physician - Primary Care Member Role: PCP Address: Address: [address] [place] [address]- Name: Tala Silva RN Position: [facility] RN Member Role: Primary Care Nurse Care Team Related Persons Name: ELIZA WHITAKER Address: home [address] [place] [id number]
--- OUTSIDE RECORDS SUMMARY | 2024-02-11 19:16 | XMS_ITS | Continuity of Care Document ---
Author Organization [facility] Ernst Romel lt Address [address] [place] [address]- Care Team Providers Care Cloth Trimmer Hand Name Role Phone Asiya PASCUAL, Bolivar Snyder Primary Care Physician [phone] Encounter [facility] Date(s): 01/02/24 - 02/01/24 [facility] [place] Adult [address] [place] [address]- Encounter Type: Triage Allergies, Adverse Reactions, Alerts [...] virus vaccine, inactivated 11/28/15 Joselito rded SARS-CoV-2(COVID-19)mRNA-LNP vac(nxr777) 12/15/22 Recorded pneumococcal 20-valent conjugate vaccine 08/28/22 Given HSZG-VtW-6kVZV 12y+ bivalent booster vax 08/01/22 Recorded FMAV-MxU-0wLDH 12y+ bivalent booster vax 12/10/21 Recorded SARS-CoV-2 mRNA (turovxp-wemn-sftdg) vax 06/14/21 Recorded SARS-CoV-2 (COVID-19) mRNA BNT-162b2 [...] Reason: Other : post doc 2Result Comment: [id number] 3Admin Note: pnrum 23 Medications aspirin 81 [...] EDT, Route to Pharmacy Electronically, [facility], 160, cm, 03/26/23 14:17:00 EST, [...] Maintenance, 10/03/23 7:28:00 AM EDT, [facility], 160, cm, 03/26/23 14:17:00 EST, Height Start Date: 10/03/23 Status: Ordered Quantity: 180.0 Unit: tablet Repeat number: 1 Flonase 50 mcg/inh nasal spray 2 sprays, Nares, Both, Daily in AM, 0 Refills, Maintenance, 08/14/22 1:01:00 PM EDT, [place], Partial fill upon patient request if the [...] Status: Ordered Repeat number: 1 nystatin topical 755664 u/gm powder 1 application, Topically, 2 times [...] 1 Refills, Maintenance, 10/02/23 4:49:00 PM EDT, [facility], 160, cm, 03/26/23 14:17:00 EST, Height Start [...] dysfunction, severe mitral valve calcifications. 3colo 2015 74435 aged out 5Status post removal of likely [...] Personnel Name: Asiya PASCUAL, Bolivar Snyder Position: [facility] Physician - Primary Care Member Role: PCP Address: [address] [place] [address]- Telecom: Name: Tala Silva RN Position: [facility] RN Member Role: Primary Care Nurse Care Team Related Persons Name: ELIZA WHITAKER Insurance Providers Guarantor name: MELO WHITAKER Health Plan Information #: 1 Payer: MEDICARE PART B OUTPT Member Number: NA Policy Number: NA Group Number: NA Health Plan Information #: 2 Payer: MEDEX Member Number: NA Policy Number: NA Group Number: NA
--- OUTSIDE RECORDS SUMMARY | 2024-02-11 19:16 | XMS_ITS | Patient Health Record ---
Author Organization [facility] Address [address] [facility] [place] [address] Care Team Providers Care Chef Head Name Role Phone Bolivar Braden MD Primary Care Provider Vel Alatorre Unavailable [phone] Ct Dawkins Unavailable [phone] Allergies Allergen (clinical drug ingredient) Drug/Non Drug Allergy documented on EMR Reaction Allergy Type Onset Date Status EPINEPHrine Unknown Drug Allergy Activ e Reason For Referral No Information Medications Medication SIG (Take, Route, Frequency, Duration) Notes Start Date End Date Status Calcium 1200mg 2 tab Once a day Active Prevent Tooth/Gum [place] Not-Taking Lasix 20 MG 1 tablet Orally Once a day Not-Taking Aspir-Low 81 MG 1 tablet Orally Once a day for 30 day(s) Active Keflex 500 MG 1 capsule Orally every 12 hrs for 7 days 06/19/2016 Not-Taking Atenolol 25 MG 1 tablet Orally Once a day for 30 day(s) Active Keflex 500 MG 1 capsule Orally every 12 hrs for 5 days 07/07/2015 Not-Taking Vitamin D 1000 UNIT 1 tablet Orally Once a day for 30 day(s) Active Citracal Calcium+D 600-40-50 0 MG-MG-UNIT as directed Orally Not-Takin g lasix Not-Taking hydroCHLOROthiazide Not-Taking PreviDent Not-Taking Atorvastatin Calcium Not-Taking Eliquis 5 MG Orally Active Niacin Not-Taking Rosuvastatin Calcium 5 MG 1 tablet Orally Active Zetia 10 MG 1 tablet Orally Once a day for 30 day(s) Not-Taking Immunizations Vaccine Route Administration Date Status Comme nts COVID-19 Pfizer BioNTech Vaccine Unknown 12/29/2020 Administered 1st 05/12/2020 2nd 06/02/2020 Social History Tobacco Use: Social History Observation [...] Problem Status W/U Status Risk Notes Problem Acquired hallux valgus (94414571) Hallux valgus (acquired), left foot (M20.12) Active confirmed Problem Unspecified atherosclerosis of [place] arteries of extremities, bilateral legs (I70.203) Active confirmed Problem Localized, primary osteoarthritis of the ankle and/or foot (350611482) Primary osteoarthritis, right ankle and foot (M19.071) Active confirmed Problem Localized, primary osteoarthritis of the ankle and/or foot (350089471) Primary osteoarthritis, left ankle and foot (M19.072) Active confirmed Problem Acquired hallux valgus (35241022) Hallux valgus (acquired), right foot (M20.11) Active confirmed Problem Acquired hammer toe of right foot (4259984110297639 ) Other hammer toe(s) (acquired), right foot (M20.41) Active confirmed Problem Pain in limb (61196947) Pain in unspecified foot (M79.673) Active confirmed Problem 603632423 Lymphedema (I89.0) Active confirmed Vital Signs Blood pressure diastolic 80 mm Hg 11/28/2023 Height 5 ft 3 in in 11/28/2023 Blood pressure systolic 135 mm Hg 11/28/2023 Weight 202 lbs 11/28/2023 BMI 35.78 kg/m2 11/28/2023 Encounters Encounter Location Date Provider Diagnosis [facility] [place] [address] [place] [address] 04/03/2023 Vel Brito Unspecified atherosclerosis of [place] arteries of extremities, bilateral legs I70.203 ; Tinea unguium B35.1 ; Xerosis cutis L85.3 ; Pain in right toe(s) M79.674 ; Pain in left toe(s) M79.675 and Ingrowing nail L60.[address] [address] 07/31/2023 Vel Brito Unspecified atherosclerosis of [place] arteries of extremities, bilateral legs I70.203 ; Tinea unguium B35.1 ; Xerosis cutis L85.3 ; Pain in right toe(s) M79.674 ; Pain in left toe(s) M79.675 ; Ingrowing nail L60.0 and Lymphedema I89.[address] [address] 11/28/2023 Vel Brito Unspecified atherosclerosis of [place] arteries of extremities, bilateral legs I70.203 ; Tinea unguium B35.1 ; Xerosis cutis L85.3 ; Pain in right toe(s) M79.674 ; Pain in left toe(s) M79.675 ; Ingrowing nail L60.0 and Lymphedema I89.0 Assessments Encounter Date Diagnosis (ICD Code) Assessment Notes Treatment Notes Treatment Clinical Notes Section Notes 04/03/2023 Unspecified atherosclerosis of [place] arteries of extremities, bilateral legs (ICD-10 - I70.203) 07/31/2023 Tinea unguium (ICD-10 - B35.1) 07/31/2023 Unspecified atherosclerosis of [place] arteries of extremities, bilateral legs (ICD-10 - I70.203) 11/28/2023 Tinea unguium (ICD-10 - B35.1) 11/28/2023 Unspecified atherosclerosis of [place] arteries of extremities, bilateral legs (ICD-10 - I70.203) 11/28/2023 Xerosis cutis (ICD-10 - L85.3) 07/31/2023 Xerosis cutis (ICD-10 - L85.3) 04/03/2023 Tinea unguium (ICD-10 - B35.1) 04/03/2023 Xerosis cutis (ICD-10 - L85.3) 07/31/2023 Pain in right toe(s) (ICD-10 - M79.674) 11/28/2023 Pain in right toe(s) (ICD-10 - M79.674) 11/28/2023 Pain in left toe(s) (ICD-10 - M79.675) 07/31/2023 Pain in left toe(s) (ICD-10 - M79.675) 04/03/2023 Pain in right toe(s) (ICD-10 - M79.674) 04/03/2023 Pain in left toe(s) (ICD-10 - M79.675) 07/31/2023 Ingrowing nail (ICD-10 - L60.0) 11/28/2023 Ingrowing nail (ICD-10 - L60.0) 07/31/2023 Lymphedema (ICD-10 - I89.0) 11/28/2023 Lymphedema (ICD-10 - I89.0) 04/03/2023 Ingrowing nail (ICD-10 - L60.0) Plan Of Treatment Pending Test Test Name Order Date 96087-GIEGKLW NAIL, 6 OR MORE 01/11/2016 21347-ALYUTKE NAIL, 6 OR MORE 04/11/2016 81805-PXIRPPJ NAIL, 6 OR MORE 06/14/2016 79485-BTTWXJC NAIL, 6 OR MORE 12/13/2016 24360-LWQMFEK NAIL, 6 OR MORE 07/10/2017 06997-IALGSJR NAIL, 6 OR MORE 10/01/2017 25175-DZEEMAW NAIL, 6 OR MORE 12/16/2017 18149-WQEWZVN NAIL, 1-5 12/20/2011 38150-AIGTCDT NAIL, 1-5 05/07/2012 69088-Hjwjzetp Plate 05/07/2012 13673-Dwwwmduo Plate 07/07/2015 96765-Ijkuxrti Plate 06/14/2016 50794- Debride <25 sq cm 07/20/2015 47662- Debride <25 sq cm 06/27/2016 76052 I&D ABSCESS- SIMPLE,SINGLE 021 32513 I&D ABSCESS- SIMPLE,SINGLE 016 62289-NJLH SKIN LESIONS, OVER 4 09/23/19 20 78143-WWHN SKIN LESIONS, OVER 4 12/28/19 20 70856-ZYWP SKIN LESIONS, OVER 4 03/28/19 21 10529-LSZF SKIN LESIONS, OVER 4 06/28/19 21 19238-HULA SKIN LESIONS, OVER 4 10/04/19 21 63221-UERD SKIN LESIONS, OVER 4 01/10/20 21 66266-OBQN SKIN LESIONS, OVER 4 05/16/19 22 20532-YUVK SKIN LESIONS, OVER 4 03/17/19 19 72590-VLPN SKIN LESIONS, OVER 4 06/24/19 19 98274-GPAO SKIN LESIONS, OVER 4 08/26/19 19 06103-QCVS SKIN LESIONS, OVER 4 10/28/19 19 60595-JPJC SKIN LESIONS, OVER 4 01/20/20 19 98765-OLQB SKIN LESIONS, OVER 4 05/04/19 20 15590-AINE SKIN LESIONS, OVER 4 12/14/19 17 50964-XISR SKIN LESIONS, OVER 4 12/17/19 18 19757-VXLF SKIN LESIONS, OVER 4 10/02/19 18 63240-XQPC SKIN LESIONS, OVER 4 07/20/19 16 74058-VCEI SKIN LESIONS, OVER 4 06/15/19 17 87506-ODUU SKIN LESIONS, 2 TO 4 07/11/19 18 38500-IQTD NAIL(S) 07/20/2015 04840-SZAMZLBU OF HEMATOMA/FLUID 020 Next Appt Details Provider Name:Kristen Hernandez yoon, 03/09/2024 11:30:00 AM, [address] [facility], [place], [address], Insurance Providers Payer Name Payer Address Payer Phone Subscriber Number Group Number Insured Name Patient Relationship to Insured Coverage Start Date Coverage End Date Medicare National Govt [employer] [address] [facility] [place] [address] [id number] Gloria Vela Self - patient is the insured 2 [employer] [address] [place] [address] [phone] [id number] Gloria Vela Self - patient is the insured Medical (General) History Medical History History ICD Code Arthritis Cholesterol high blood pressure measles mumps chicken pox Surgical History Surgery Date(Month/Year) appendectomy 1969 cholecystectomy 2009 parathyroidectomy 2009 hysterectomy 2010 bladder surgery 2010 Hospitalization History Reason Date(Month/Year) [facility] ER - fell 6 hrs test done F/L w/PCP on 11/21/2111/2021 [facility]-Eye strok e- multiple ER visits 03/2018 [facility] ER - migraine 12/14/17 Cape Code disoriented 01/2017
--- OUTSIDE RECORDS SUMMARY | 2024-02-11 19:16 | XMS_ITS ---
Author Organization [facility] sudeep Amlin Address [address] [facility] [place] [address] Care Team Providers Care Councilman Name Role Phone Bolivar Braden MD Primary Care Provider Vel Alatorre Unavailable [phone] Allergies Allergen (clinical drug ingredient) Drug/Non Drug Allergy documented on EMR Reaction Allergy Type Onset Date Status EPINEPHrine Unknown Drug Allergy Activ e REASON FOR VISIT Painful nail(s) aggrevated by shoes and causing difficulty standing/walking. Medications Medication SIG (Take, Route, Frequency, Duration) Notes Start Date End Date Status Vitamin D 1000 UNIT 1 tablet Orally Once a day for 30 day(s) Active lasix Not-Taking hydroCHLOROthiazide Not-Taking PreviDent Not-Taking Rosuvastatin Calcium 5 MG 1 tablet Orally Active Calcium 1200mg 2 tab Once a day Active Aspir-Low 81 MG 1 tablet Orally Once a day for 30 day(s) Active Atenolol 25 MG 1 tablet Orally Once a day for 30 day(s) Active Citracal Calcium+D 600-40-50 0 MG-MG-UNIT as directed Orally Not-Takin g Eliquis 5 MG Orally Active Keflex 500 MG 1 capsule Orally every 12 hrs for 7 days 06/19/2016 Not-Taking Keflex 500 MG 1 capsule Orally every 12 hrs for 5 days 07/07/2015 Not-Taking Atorvastatin Calcium Not-Taking Niacin Not-Taking Zetia 10 MG 1 tablet Orally Once a day for 30 day(s) Not-Taking Prevent Tooth/Gum [place] Not-Taking Lasix 20 MG 1 tablet Orally Once a day Not-Taking Social History Tobacco Use: Social History Observation Description Date Details (start date - stop date) Former Smoker NA - NA Tobacco Use/Smoking Question Answer Notes Are you a: former smoker Additional Findings: Tobacco Non-User Current no n-smoker Tobacco use other than smoking: Question Answer Notes Are you an other tobacco user? No Vital Signs Height 5 ft 3 in in 11/28/2023 Weight 202 lbs 11/28/2023 BMI 35.78 kg/m2 11/28/2023 Blood pressure systolic 135 mm Hg 11/28/19 24 Blood pressure diastolic 80 mm Hg 024 Encounters Encounter Location Date Provider Diagnosis [facility] [place] [address] [place] [address] 11/28/2023 Vel Brito Unspecified atherosclerosis of [place] arteries of extremities, bilateral legs I70.203 ; Tinea unguium B35.1 ; Xerosis cutis L85.3 ; Pain in right toe(s) M79.674 ; Pain in left toe(s) M79.675 ; Ingrowing nail L60.0 and Lymphedema I89.0 Assessments Encounter Date Diagnosis (ICD Code) Assessment Notes Treatment Notes Treatment Clinical Notes Section Notes 11/28/2023 Unspecified atherosclerosis of [place] arteries of extremities, bilateral legs (ICD-10 - I70.203) 11/28/2023 Tinea unguium (ICD-10 - B35.1) 11/28/2023 Xerosis cutis (ICD-10 - L85.3) 11/28/2023 Pain in right toe(s) (ICD-10 - M79.674) 11/28/2023 Pain in left toe(s) (ICD-10 - M79.675) 11/28/2023 Ingrowing nail (ICD-10 - L60.0) 11/28/2023 Lymphedema (ICD-10 - I89.0) Plan Of Treatment Next Appt Details Follow Up: 3 Months, Reason: Provider Name:Kristen nettles, 03/09/2024 11:30:00 AM, [address] [place], [address], Procedure Notes * Category Sub-Category Detail Notes [...] as necessary. Patient chooses, no pharmaceutical tx (15848) Keratoma Treatment Parring or Cutting o f Benign Hyperkeratotic Lesion(s) 39830 ( >4 Lesions) - The Benign hyperkeratotic lesions, as described above were pared, and/or cut utilizing a sterile #15 blade, tissue nippers, and/or dremel, Q8 Progress Notes * Ella WHITAKERn TDOB: [birth year] (88 yo F)Acc No.[id number]:11/28/2023 Progress Note Patient:?Gloria Whitaker Provider:?Vel Brito DPM :1935???Age:88 Y???Sex:Female D ate:11/28/2023 Address:[address] [place], [place] [id number] Pcp:Bolivar Braden MD Subjective: * Chief Complaints: [...] * Hospitalization/Major Diagno stic Procedure:?[place]ape Code disoriented 01/2017[facility] ER - migraine 12/14/17[facility]- multiple ER visits 03/2018[facility] ER - fell 6 hrs test done F/L w/PCP on 11/21/2111/2021 * Family History:?Mother: dece ased, diagnosed with Family history of arthritis, Unspecified essential hypertension, Unspecified cerebral artery occlusion with cerebral infarction.?Father: , heart attack.? * Social History:?Tobacco Use:?Tobacco Use/Smoking?Are you a:?former smoker ?Additional Findings: Tobacco Non-User?Current non-smoker ?Tobacco use other than smoking?Are you an other tobacco user??No ???Miscellaneous:?no Caffeine. ?Children: yes, 3. ?Exercise: yes, exercise chair PT knees. ?Marital status: . 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 * Medications:?TakingAspir-Low 81 MG Tablet Delayed Release [...] Once a dayNot-Taking/PRNlasix hydroCHLOROthiazide PreviDent Prevent Tooth/Gum [place] Lasix 20 MG Tablet 1 tablet Orally [...] Not-Taking/PRN hydroCHLOROthiazide Not-Taking/PRN PreviDent Not-Taking/PRN Prevent Tooth/Gum [place] Not-Taking/PRN Lasix 20 MG Tablet 1 tablet [...] reviewed and reconciled with the patient * Allergies:?EPINEPHrineyes[Alli harris Verified] Objective: * Vitals:?Ht: 5 ft 3 in, Wt: 2 02, BMI: 35.78, Shoe size: 7.5, BP: 135/80 mm Hg, Wt-k.63 kg. * Examination: ???Nails: ?NAILS are:?elongated,overgrown,dystrophic,greater than 3mm thick,discolored and friable with crumbly malodorous subungual debris, with pain on palpation, 1-5 B/L.?Vascular: ?DP PULSES(B):? 0/4, B/L.?PT PULSES(B):? 0/4, B/L.?CAPILLARY FILL TIME:? delayed, all digits, B/L.?TROPHIC CONDITION-TEXTURE/ELASTICITY/TURGOR/HAIR GROWTH(B):? decreased, B/L.?PIGMENTATION:? rubrous, B/L.?EDEMA(C):? 3/4, B/L, Feet, Ankle(s), Leg(s).?Dermatologic: ?SKIN FINDINGS:? [...] 1.?Tinea unguium - B35.1?2.? Unspecified atherosclerosis of [place] arteries of extremities, bilateral legs - I70.203 [...] as necessary. Patient chooses, no pharmaceutical tx (02028).?Keratoma Treatment:?Parring or Cutting of Benign Hyperkeratotic Lesion(s)?10290 ( >4 Lesions) - The Benign hyperkeratotic lesions, as described above were pared, and/or cut utilizing a sterile #15 blade, tissue nippers, and/or dremel, Q8.? * Procedure Codes:?86321 DEBRI DE NAIL, 6 OR MORE, Modifiers: XS 47712 TRIM SKIN LESIONS, OVER 4, Modifiers: Q8 * Follow Up:?3 Months * Images: * Sign off status: Completed true * Provider:?Vel Brito DPM Date:? 024 Generated for Tristian cochran/Parth/[place]rent on:?02/11/2024 07:16 PM EST History and Physical [...]
--- OUTSIDE RECORDS SUMMARY | 2024-02-11 19:16 | XMS_ITS ---
Author Organization [facility] Address [address] [place] [address] Care Team Providers Care Roustabout Crew Pusher Name Role Phone Bolivar Braden MD Primary Care Provider Vel Alatorre [phone] REASON FOR VISIT Painful nail(s) aggrevated by shoes and causing difficulty standing/walking. Encounters Encounter Location Date Provider Diagnosis [facility] [address] [place] [address] 10/28/2023 Vel Brito Unspecified atherosclerosis of hoopa arteries of extremities, bilateral legs I70.203 ; Tinea unguium B35.1 ; Xerosis cutis L85.3 ; Pain in right toe(s) M79.674 ; Pain in left toe(s) M79.675 ; Ingrowing nail L60.0 and Lymphedema I89.0 Assessments Encounter Date Diagnosis (ICD Code) Assessment Notes Treatment Notes Treatment Clinical Notes Section Notes 10/28/2023 Unspecified atherosclerosis of hoopa arteries of extremities, bilateral legs (ICD-10 - I70.203) 10/28/2023 Tinea unguium (ICD-10 - B35.1) 10/28/2023 Xerosis cutis (ICD-10 - L85.3) 10/28/2023 Pain in right toe(s) (ICD-10 - M79.674) 10/28/2023 Pain in left toe(s) (ICD-10 - M79.675) 10/28/2023 Ingrowing nail (ICD-10 - L60.0) 10/28/2023 Lymphedema (ICD-10 - I89.0) Plan Of Treatment Next Appt Details Follow Up: 3 Months, Reason: Provider Name:Kristen Hernandez yoon, 03/09/2024 11:30:00 AM, [address] [facility], [place], [address], Procedure Notes * Category Sub-Category Detail Notes [...] as necessary. Patient chooses, no pharmaceutical tx (42816) Keratoma Treatment Parring or Cutting o f Benign Hyperkeratotic Lesion(s) 19557 ( >4 Lesions) - The Benign hyperkeratotic lesions, as described above were pared, and/or cut utilizing a sterile #15 blade, tissue nippers, and/or dremel, Q8 Progress Notes * Gloria WHITAKER TDOB: [birth year] (88 yo F)Acc No.[id number]:10/28/2023 Progress Note Patient:?Gloria WHITAKER Beto Provider:?Vel Brito DPM :1935???Age:88 Y???Sex:Female D ate:10/28/2023 Address:[address] [place], [place] [id number] Pcp:Bolivar Braden MD Subjective: * Chief Complaints: * ???1. Painful nail(s) aggrev ated by shoes and causing difficulty standing/walking.. * HPI: ???Painful Nails:?Pt States Last PCP [...] sleeping?denies.?Brain disorder?denies.?Numbness?denies.?Balance trouble?denies.?Confusion?denies.?Fainting/blackouts?denies.?Tingling?denies.?Tr emors?denies.? * Medical History:? Objective: * Vitals:? * Examination: ???Nails: ?NAILS are:?elongated,overgrown,dystrophic,greater than 3mm [...] tracking 1st MPJ reducable.? Assessment: * Assessment: 1.?Unspecified atheroscleros is of hoopa arteries of extremities, bilateral legs - I70.203 (Primary)???2.?Tinea unguium - B35.1???3.?Xerosis cutis - L85.3???4.?Pain in right toe(s) - M79.674???5.?Pain in left toe(s) - M79.675???6.?Ingrowing nail - L60.0???7.?Lymphedema - I89.0??? Plan: * Treatment: * Procedures:?Debride Nail 6-10:?Nail debridement?Nail debridement performed extensively to reduce/remove overall nail length and girth, subungual debris, and necrotic tissue, by manual and electrical means with use of a nail nipper and/or dremel, to more viable healthy nail plate or bed tissue 6-10. Silver nitrate used for any petechial bleeding as necessary. Patient chooses, no pharmaceutical tx (65275).?Keratoma Treatment:?Parring or Cutting of Benign Hyperkeratotic Lesion(s)?68816 ( >4 Lesions) - The Benign hyperkeratotic lesions, as described above were pared, and/or cut utilizing a sterile #15 blade, tissue nippers, and/or dremel, Q8.? * Procedure Codes:?48956 DEBRI DE NAIL, 6 OR MORE, Modifiers: XS , 57757 TRIM SKIN LESIONS, OVER 4, Modifiers: Q8 * Follow Up:?3 Months * Images: * The named appointment provid er may or may not be the originator of this progress note, and it is not deemed complete until electronically signed by the appointment provider. Sign off status: Pending * Provider:?Vel Brito DPM Date:? 024 Generated for Tristian cochran/Parth/Eversmitting on:?02/11/2024 07:16 PM EST History and Physical [...]
--- OUTSIDE RECORDS SUMMARY | 2024-02-11 19:16 | XMS_ITS | Continuity of Care Document ---
Author Organization [facility] lt Address [address] [place] [address]- Care Team Providers Care Sound Effects Person Name Role Phone Asiya PASCUAL, Bolivar Snyder Primary Care Physician [phone] Encounter [facility] Date(s): 01/02/24 - 02/01/24 [facility] Adult [address] [place] [address]- Encounter Type: Triage Allergies, Adverse Reactions, Alerts [...] virus vaccine, inactivated 11/28/15 Joselito rded SARS-CoV-2(COVID-19)mRNA-LNP vac(lcj428) 12/15/22 Recorded pneumococcal 20-valent conjugate vaccine 08/28/22 Given SYAF-[id number]-[id number] 12y+ bivalent booster vax 08/01/22 Recorded GULE-XeO-7iMFN 12y+ bivalent booster vax 12/10/21 Recorded SARS-CoV-2 mRNA ([id number]-[id number]) vax 06/14/21 Recorded SARS-CoV-2 (COVID-19) mRNA BNT-162b2 [...] Reason: Other : post doc 2Result Comment: [id number] 3Admin Note: pnrum 23 Medications aspirin 81 [...] EDT, Route to Pharmacy Electronically, [facility], 160, cm, 03/26/23 14:17:00 EST, [...] Maintenance, 10/03/23 7:28:00 AM EDT, [facility], 160, cm, 03/26/23 14:17:00 EST, Height Start Date: 10/03/23 Status: Ordered Quantity: 180.0 Unit: tablet Repeat number: 1 Flonase 50 mcg/inh nasal spray 2 sprays, Nares, Both, Daily in AM, 0 Refills, Maintenance, 08/14/22 1:01:00 PM EDT, [place], Partial fill upon patient request if the [...] Status: Ordered Repeat number: 1 nystatin topical [id number] u/gm powder 1 application, Topically, 2 times [...] 1 Refills, Maintenance, 10/02/23 4:49:00 PM EDT, [facility], 160, cm, 03/26/23 14:17:00 EST, Height Start [...] dysfunction, severe mitral valve calcifications. 3colo 2015 77217 aged out 5Status post removal of likely [...] Personnel Name: Asiya PASCUAL, Bolivar Snyder Position: [facility] Physician - Primary Care Member Role: PCP Address: [address] [place] [address]- Telecom: Name: Tala Silva RN Position: [facility] RN Member Role: Primary Care Nurse Care Team Related Persons Name: ELIZA WHITAKER Insurance Providers Guarantor name: MELO WHITAKER Health Plan Information #: 1 Payer: MEDICARE PART B OUTPT Member Number: NA Policy Number: NA Group Number: NA Health Plan Information #: 2 Payer: MEDEX Member Number: NA Policy Number: NA Group Number: NA
== END 2024-02-05 12:49 | disposition home or self-care (01) ==
LOC: HO.MAMMO 12:48
PROVIDERS: PCP Internal Medicine; Visit Provider Internal Medicine
DX: Z12.31 Encounter for screening mammogram for malignant neoplasm of breast (principal)
CPT/HCPCS: 77063; 77067

== ENCOUNTER → 2024-02-05 13:00 | Outpatient (BNV) | payer MEDICARE, SELFPAY | PROVIDERS: PCP Internal Medicine; Visit Provider Internal Medicine | DX: Z12.31 Encounter for screening mammogram for malignant neoplasm of breast (principal) | CPT/HCPCS: 77063; 77067 ==

== ENCOUNTER 2024-08-31 13:45 | Outpatient (RCR) | payer MEDICARE, SELFPAY | END 2024-08-31 16:32 | disposition home or self-care (01) | LOC: HO.WCC 13:45 | PROVIDERS: PCP Internal Medicine; Visit Provider Surgery | DX: I87.331 Chronic venous hypertension (idiopathic) with ulcer and inflammation of right lower extremity (principal); L97.211 Non-pressure chronic ulcer of right calf limited to breakdown of skin; I87.322 Chronic venous hypertension (idiopathic) with inflammation of left lower extremity; I89.0 Lymphedema, not elsewhere classified; I48.91 Unspecified atrial fibrillation; Z87.891 Personal history of nicotine dependence; Z79.82 Long term (current) use of aspirin; Z79.01 Long term (current) use of anticoagulants; Z79.899 Other long term (current) drug therapy | CPT/HCPCS: 11042; 11045; 29581; 97597; 97598; 99211; 99212; 99213; 99214; 99215 ==

== ENCOUNTER 2024-11-10 14:43 | Outpatient (AMB) | payer MEDICARE, SELFPAY ==
--- OUTSIDE RECORDS SUMMARY | 2023-10-28 08:30 | XMS_ITS ---
Author Organization [facility] Address [address] [facility] [place] [address] Care Team Providers Care Director Social Service Name Role Phone Bolivar Braden MD Primary Care Provider Kristen Irby Unavailable [phone] Vel Brito Unavailable [phone] REASON FOR VISIT Painful nail(s) aggrevated by shoes and causing difficulty standing/walking. Encounters Encounter Location Date Provider Diagnosis [facility] [address] [place] [address] 10/28/2023 Vel Brito Unspecified atherosclerosis of [place] arteries of extremities, bilateral legs I70.203 ; Tinea unguium B35.1 ; Xerosis cutis L85.3 ; Pain in right toe(s) M79.674 ; Pain in left toe(s) M79.675 ; Ingrowing nail L60.0 and Lymphedema I89.0 Assessments Encounter Date Diagnosis (ICD Code) Assessment Notes Treatment Notes Treatment Clinical Notes Section Notes 10/28/2023 Unspecified atherosclerosis of [place] arteries of extremities, bilateral legs (ICD-10 - I70.203) 10/28/2023 Tinea unguium (ICD-10 - B35.1) 10/28/2023 Xerosis cutis (ICD-10 - L85.3) 10/28/2023 Pain in right toe(s) (ICD-10 - M79.674) 10/28/2023 Pain in left toe(s) (ICD-10 - M79.675) 10/28/2023 Ingrowing nail (ICD-10 - L60.0) 10/28/2023 Lymphedema (ICD-10 - I89.0) Plan Of Treatment Next Appt Details Follow Up: 3 Months, Reason: Provider Name:Kristen nettles, 02/08/2025 02:30:00 PM, [address] [place], [address], Procedure Notes * Category Sub-Category Detail Notes [...] as necessary. Patient chooses, no pharmaceutical tx (05027) Keratoma Treatment Parring or Cutting o f Benign Hyperkeratotic Lesion(s) 05163 ( >4 Lesions) - The Benign hyperkeratotic lesions, as described above were pared, and/or cut utilizing a sterile #15 blade, tissue nippers, and/or dremel, Q8 Progress Notes * Gloria WHITAKER TDOB: [birth year] (89 yo F)Acc No.[id number]:10/28/2023 Progress Note Patient: Gloria DUNCAN Provider: Gabriel Brito DPM :1935 A ge:88 Y S ex:Female Date:10/28/2023 Address:[address] [place], [place] [id number] Pcp:Bolivar Braden MD Subjective: * Chief Complaints: [...] /L. Duration: s everal years. Course: w oskare. * ROS: G eneral/Constitutional: Nausea d enies. [...] enies. C ardiovascular: Pacemaker d enies. M GENERAL HOUSE WORKER d enies. W PW d enies. C [...] B/L. G eneral Examination: GENERAL APPEARANCE: R eveals a pleasant, alert, well nourished, well developed, well hydrated individual, who demonstrates proper attention to hygene/body habitus, and is in no acute distress. ORIENTED: p erson, place, and time. O rthopedic: MUSCLE STRENGTH: 5 /5 all groups in a symmetrical fashion , B/L. BUNION: Medially prominent 1st MPJ, B/L, Lateral tracking 1st MPJ reducable. Assessment: * Assessment: 1. U nspecified atherosclerosis of [place] arteries of extremities, bilateral legs - I70.203 [...] as necessary. Patient chooses, no pharmaceutical tx (79335). K eratoma Treatment: Parring or Cutting of Benign Hyperkeratotic Lesion(s) 1 1057 ( >4 Lesions) - The Benign hyperkeratotic lesions, as described above were pared, and/or cut utilizing a sterile #15 blade, tissue nippers, and/or dremel, Q8. * Procedure Codes: 1 1721 DEBRIDE NAIL, 6 OR MORE, Modifiers: XS , 12234 TRIM SKIN LESIONS, OVER 4, Modifiers: Q8 * Follow Up: 3 Months * Images: * The named appointment provid er may or may not be the originator of this progress note, and it is not deemed complete until electronically signed by the appointment provider. Sign off status: Pending * Provider: Gabriel Brito DPM Date: 0 10/28/2023 Generated for Tristian cochran/Parth/Trent on: 0 11/10/2024 05:11 PM EDT History and Physical Notes * HPI (History [...]
--- OUTSIDE RECORDS SUMMARY | 2024-11-09 10:30 | XMS_ITS ---
Author Organization [facility] [place] Address [address] [place] [address] Care Team Providers Care Tile Classifier Name Role Phone Bolivar Braden MD Primary Care Provider Kristen Irby Unavailable [phone] Allergies Allergen (clinical drug ingredient) Drug/Non Drug Allergy documented on EMR Reaction Allergy Type Onset Date Status EPINEPHrine Unknown Drug Allergy Activ e REASON FOR VISIT At Risk Footcare, Painful Nail(s) aggravated by shoes and causing difficulty standing/walking. Medications Medication SIG (Take, Route, Frequency, Duration) Notes Start Date End Date Status Citracal Calcium+D 600-40-50 0 MG-MG-UNIT as directed Orally Not-Takin g Zetia 10 MG 1 tablet Orally Once a day; Duration: 30 day(s) Not-Taking Niacin Not-Taking Atorvastatin Calcium Not-Taking Keflex 500 MG 1 capsule Orally every 12 hrs; Duration: 5 days 07/07/2015 Not-Taking Keflex 500 MG 1 capsule Orally every 12 hrs; Duration: 7 days 06/19/2016 Not-Taking Lasix 20 MG 1 tablet Orally Once a day Not-Taking Prevent Tooth/Gum Lynco Not-Taking PreviDent Not-Taking hydroCHLOROthiazide Not-Taking lasix Not-Taking Carvedilol 3.125 MG Oral; Duration: 90 Days Active Vitamin D 1000 UNIT 1 tablet Orally Once a day; Duration: 30 day(s) Active Rosuvastatin Calcium 5 MG 1 tablet Orally Active Eliquis 5 MG Orally Active Calcium 1200mg 2 tab Once a day Active Atenolol 25 MG 1 tablet Orally Once a day; Duration: 30 day(s) Not-Taking Aspir-Low 81 MG 1 tablet Orally Once a day; Duration: 30 day(s) Active Social History Tobacco Use: Social History Observation Description Date Details (start date - stop date) Never Smoker NA - NA Tobacco use other than smoking: Question Answer Notes Are you an other tobacco user? No Tobacco Control (Standard) Question Answer Notes Tobacco use: Nonsmoker Additional Findings: Tobacco non-user Current no nsmoker AUDIT-C (Standard) Question Answer Notes Did you have a drink containing alcohol in the p ast year? No Points 0 Interpretation Negative Vital Signs Height 5 ft 3 in in 11/09/2024 Weight 207 lbs 11/09/2024 BMI 36.66 kg/m2 11/09/2024 Blood pressure systolic 135 mm Hg 11/10/19 25 Blood pressure diastolic 60 mm Hg 025 Procedures Procedure Date Ordered Date Performed Result Body Sit e 55507-OCEODUZ NAIL, 6 OR MORE 11/09/2024 N/A 72223-RZCQ SKIN LESIONS, OVER 4 11/09/2024 N/A Encounters Encounter Location Date Provider Diagnosis [facility] [address] [address] 11/09/2024 Kristen Segovia Atherosclerosis of jena artery of both lower extremities, with unspecified presence of clinical manifestation I70.203 ; Tinea unguium B35.1 ; Pain in right toe(s) M79.674 ; Pain in left toe(s) M79.675 and Lymphedema I89.0 Assessments Encounter Date Diagnosis (ICD Code) Assessment Notes Treatment Notes Treatment Clinical Notes Section Notes 11/09/2024 Atherosclerosis of jena artery of both lower extremities, with unspecified presence of clinical manifestation (ICD-10 - I70.203) Q7(A), Q8(2B), Q9(1B,2C) 11/09/2024 Tinea unguium (ICD-10 - B35.1) 11/09/2024 Pain in right toe(s) (ICD-10 - M79.674) 11/09/2024 Pain in left toe(s) (ICD-10 - M79.675) 11/09/2024 Lymphedema (ICD-10 - I89.0) Plan Of Treatment Pending Test Test Name Order Date 25052-KJAOBMI NAIL, 6 OR MORE 11/09/2024 78094-KANK SKIN LESIONS, OVER 4 11/10/19 25 Next Appt Details Follow Up: 3 Months, Reason: Provider Name:Kristen nettles, 02/08/2025 02:30:00 PM, [address] [place] [address], [id number], Procedure Notes * Category Sub-Category Detail Notes Debride Nail 6-10 Nail debridement Due to the cl inical pathology outlined in the exam findings, performance of this nail treatment is medically necessary as its management by an unskilled/untrained nonprofessional would put this patients foot and overall health at risk. Therefore, debridement to affected nail(s), as described in exam ( T1, T2, T3, T4, T5, T6, T7, T8, T9, ), was performed exclusively by the physician of record to reduce/remove overall nail length, girth, thickness, subungual debris, and necrotic tissue, by manual and/or electrical means through the use of a nail nipper and/or dremel-type cutter grinder operator, to a more viable healthy nail plate or bed tissue 6-10 nails in total. Silver nitrate was used for any petechial bleeding as necessary. Definitive antifungal treatment options, both pharmaceutical and surgical, have been reviewed and discussed with the patient. The patient solely prefers the use of intermittent/as needed professional debridement services for their nail condition and understands the need for additional periodic treatments to maintain effectiveness in symptomatic relief - 94413 Keratoma Treatment Parring or Cutting o f Benign Hyperkeratotic Lesion(s) (-57) More than 4 Lesions - Due to the at risk nature of the patients medical condition as documented in the exam findings, performance of this keratoderma treatment is medically necessary as its management by an unskilled/untrained nonprofessional would put this patients foot and overall health at risk. Therefore, the benign hyperkeratotic lesions, ( 6) in total, locations as stated and described in the exam (medial IPJ TA, sub 1st MPJ b/l, sub 5th MPJ, right, plantar heels B/L ), were pared, and/or cut utilizing a sterile 15 blade, tissue nippers, and/or power dremel instrumentation by the physician of record - 55078, Q8 Progress Notes * Gloria WHITAEKR TDOB: [birth year] (89 yo F)Acc No.[id number]:11/09/2024 Progress Note Patient: Gloria DUNCAN Provider: Patrice Segovia DPM :1935 A ge:89 Y S ex:Female Date:11/09/2024 Address:[address] [place], [place] [id number] Pcp:Bolivar Braden MD Subjective: * Chief Complaints: * A t Risk FootcarePainful Nail(s) aggravated by shoes and causing difficulty standing/walking. * HPI: A t Risk footcare: Pt States Last PCP Visit: D ate 0 08/01/2024 * ROS: G eneral/Constitutional: Nausea d enies, denies. V omiting d enies, denies.?Hunger Thirst d enies, denies. L oss appetite d enies, denies. C hills d enies, denies. F atigue d enies, denies. F ever d enies, denies. N ight Sweats denies, denies. U nexplained weight loss d enies, denies. U nexplained weight gain?denies, denies. H EENTM: Dentures d enies, denies. D izziness d enies, denies. G lasses/contacts a dmits, admits. R etinopathy d enies, denies. B lurred/double vision d enies, denies. T MJ d enies, denies. D ischarge/drainage d enies, denies. I mplants d enies, denies. S ore throat d enies, denies. D ental implants?denies, denies. H zelda of hearing d enies, denies. D ifficulty chewing/swallowing/speaking d enies, denies. N ose bleeds d enies, denies. S ore mouth d enies, denies. R espiratory: On Oxygen d enies, denies. P neumonia/pleurisy d enies, denies. B ronchitis d enies, denies. E mphysema d enies, denies. C oughing?denies, denies. C ough blood d enies, denies. S hortness of breath d enies, denies. W heezing d enies, denies. C ardiovascular: Pacemaker d enies, denies. M ANALYTICS SPECIALIST d enies, denies.?WPW d enies, denies. C HF d enies, denies. H eart attack d enies, denies.?Septal defect d enies, denies. R apid beat d enies, denies. C hest pain d enies, denies. A trial Fib. d enies, denies. M urmur/Palpitations d enies, denies. G astrointestinal: Hemorrhoids d enies, denies. S tomach/Abdominal pain?denies, denies. D ark blood stool d enies, denies. I rritable bowel d enies, denies. C onstipation d enies, denies. D iarrhea d enies, denies. H ematology: Swelling d enies, denies. C lots d enies, denies.?Varicose Veins d enies, denies. B ruising d enies, denies. B leeding problem?denies, denies. G enitourinary: Blood urine d enies, denies. F requent/Painfu/urination/bladder control d enies, denies. K idney stones d enies, denies. I nfection (UTI)?denies, denies. N ephropathy d enies, denies. s ex trans dis (STD) d enies, denies. P rostate d enies, denies. M usculoskeletal: Hammertoes d enies, denies. B unions d enies, denies. B ack Pain d enies, denies. M uscle Cramps/ Resting d enies, denies. M uscle cramps / walking d enies, denies. G eneralized aches and pains d enies, denies. W eakness d enies, denies. I nteg.: Young d enies, denies. S cars d enies, denies. C orns/calluses d enies, denies. I ngrown nails d enies, denies. P ainful nails d enies, denies. O pen Sores d enies, denies. R ashes d enies, denies. ? N eurologic: Difficulty sleeping d enies, denies. B rain disorder?denies, denies. N umbness d enies, denies. B alance trouble d enies, denies. C onfusion d enies, denies. F ainting/blackouts d enies, denies. T ingling d enies, denies. T remors d enies, denies. * Medical History: * Surgical History: a ppendectomy 1968cholecystectomy 2009parathyroidectomy 2009hysterectomy 2011bladder surgery 2010 * Hospitalization/Major Diagno stic Procedure: C ape Code disoriented 01/2017[facility] ER - migraine 12/14/17[facility]-Eye stroke- multiple ER visits 03/2018[facility] ER - fell 6 hrs test done F/L w/PCP on 11/21/2111/2021 * Family History: M other: , diagnosed with Unspecified essential hypertension, Unspecified cerebral artery occlusion with cerebral infarction, Family history of arthritis. F ather: , heart attack. * Social History: T obacco Use: T obacco use other than smoking A re you an other tobacco user? N o Tobacco Control (Standard) T obacco use: N onsmoker A dditional Findings: Tobacco non-user C urrent nonsmoker M iscellaneous: C affeine: no, frequency:. Children: yes, 3. Exercise: yes, exercise chair PT knees, exercise zoom group. Marital status: . 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 D rug/Alcohol: A PRAMOD-C (Standard) D id you have a drink containing alcohol in the past year? N o P oints 0 I nterpretation N egative * Medications: T akingAspir-Low 81 MG Tablet Delayed Release 1 tablet Orally Once a day Calcium 1200mg 2 tab Once a day Eliquis 5 MG Tablet Orally Rosuvastatin Calcium 5 MG Tablet 1 tablet Orally Vitamin D 1000 UNIT Tablet 1 tablet Orally Once a day Carvedilol 3.125 MG Tablet Oral Taking Aspir-Low 81 MG Tablet Delayed Release 1 tablet Orally Once a day Taking Calcium 1200mg 2 tab Once a day Taking Eliquis 5 MG Tablet Orally Taking Rosuvastatin Calcium 5 MG Tablet 1 tablet Orally Taking Vitamin D 1000 UNIT Tablet 1 tablet Orally Once a day Taking Carvedilol 3.125 MG Tablet Oral Not-Taking/PRNAtenolol 25 MG Tablet 1 tablet Orally Once a day lasix hydroCHLOROthiazide PreviDent Prevent Tooth/Gum Lynco Lasix 20 MG Tablet 1 tablet Orally Once a day Keflex 500 MG Capsule 1 capsule Orally every 12 hrs Keflex 500 MG Capsule 1 capsule Orally every 12 hrs Atorvastatin Calcium Niacin Zetia 10 MG Tablet 1 tablet Orally Once a day Citracal Calcium+D 600-40-500 MG-MG-UNIT Tablet Extended Release 24 Hour as directed Orally Medication List reviewed and reconciled with the patientNot-Taking/PRN Atenolol 25 MG Tablet 1 tablet Orally Once a day Not- Taking/PRN lasix Not-Taking/PRN hydroCHLOROthiazide Not-Taking/PRN PreviDent Not-Taking/PRN Prevent Tooth/Gum Lynco Not-Taking/PRN Lasix 20 MG Tablet 1 tablet Orally Once a day Not-Taking/PRN Keflex 500 MG Capsule 1 capsule Orally every 12 hrs Not- Taking/PRN Keflex 500 MG Capsule 1 capsule Orally every 12 hrs Not-Taking/PRN Atorvastatin Calcium Not-Taking/PRN Niacin Not-Taking/PRN Zetia 10 MG Tablet 1 tablet Orally Once a day Not-Taking/PRN Citracal Calcium+D 600-40-500 MG-MG-UNIT Tablet Extended Release 24 Hour as directed Orally Medication List reviewed and reconciled with the patient * Allergies: E Donte[Allergies Verified] Objective: * Vitals: H t: 5 ft 3 in, Wt: 207, BMI: 36.66, Shoe size: 7.5-8, BP: 135/60 mm Hg, Wt-k.89 kg. * Examination: V ascular: DP PULSES (B): 0/4, B/L. PT PULSES (B): 0/4, B/L. CAPILLARY FILL TIME: delayed, all digits, B/L. TROPHIC CONDITION-TEXTURE/ELASTICITY/TURGOR/HAIR GROWTH (B):? decreased, fragile, thin, shiny skin, with sparse to absent hair growth, B/L. TEMPERTURE GRADIENT (C): decreased, cool to cool, proximal to distal, B/L. PIGMENTATION: r ubrous, B/L. EDEMA (C): 3 /4, pitting, without aching pain, Leg(s), Ankle(s), Foot, B/L. CLAUDICATION (C): d enies, B/L. REST PAIN: d enies, B/L. PARESTHESIA (C): a bsent, B/L. BURNING (C): a bsent, B/L. N ails: NAILS are: E longated, overgrown, dystrophic, lytic, greater than 3mm thick, discolored and friable with crumbly malodorous subungual debris, with pain on palpation, TA, T1, T2, T3, T4, T5, T6, T7, T8, T9. D ermatologic: SKIN FINDINGS: S kin exam reveals Keratotic lesion(s) located at medial IPJ TA, sub 1st MPJ b/l, sub 5th MPJ, right, plantar heels B/L. O rthopedic: MUSCLE STRENGTH: 5 /5 all groups in a symmetrical fashion, B/L. N eurological: SENSORY: N eurological exam reveals intact sensorium, pain sensation normal, vibration sensation intact, pinprick sensation is normal in the lower extremities, Pt denies, anesthesia, burning, paresthesia, tingling, B/L. G eneral Examination: GENERAL APPEARANCE: Frederick maderas a pleasant, alert, well nourished, well-developed, well hydrated individual, who demonstrates proper attention to hygiene/body habitus, and is in no acute distress, Pt serves as own historian for office visit today. ORIENTED: p erson, place, and time. Assessment: * Assessment: 1. A therosclerosis of jena artery of both lower extremities, with unspecified presence of clinical manifestation - I70.203 (Primary) N otes :Q7(A), Q8(2B), Q9(1B,2C) 2 . T inea unguium - B35.1 3 . P ain in right toe(s) - M79.674 4 . P ain in left toe(s) - M79.675 5 . L ymphedema - I89.0 Plan: * Treatment: 2. T hamilton Pérez rocedure: 39115-VPLTETR NAIL, 6 OR MORE * Procedures: D ebride Nail 6-10: Nail debridement D ue to the clinical pathology outlined in the exam findings, performance of this nail treatment is medically necessary as its management by an unskilled/untrained nonprofessional would put this patients foot and overall health at risk. Therefore, debridement to affected nail(s), as described in exam ( T 1, T2, T3, T4, T5, T6, T7, T8, T9, ), was performed exclusively by the physician of record to reduce/remove overall nail length, girth, thickness, subungual debris, and necrotic tissue, by manual and/or electrical means through the use of a nail nipper and/or dremel-type cutter grinder operator, to a more viable healthy nail plate or bed tissue 6- 10 nails in total. Silver nitrate was used for any petechial bleeding as necessary. Definitive antifungal treatment options, both pharmaceutical and surgical, have been reviewed and discussed with the patient. The patient solely prefers the use of intermittent/as needed professional debridement services for their nail condition and understands the need for additional periodic treatments to maintain effectiveness in symptomatic relief - 85028. K eratoma Treatment: Parring or Cutting of Benign Hyperkeratotic Lesion(s) ( -57) More than 4 Lesions - Due to the at risk nature of the patients medical condition as documented in the exam findings, performance of this keratoderma treatment is medically necessary as its management by an unskilled/untrained nonprofessional would put this patients foot and overall health at risk. Therefore, the benign hyperkeratotic lesions, ( 6) in total, locations as stated and described in the exam (medial IPJ TA, sub 1st MPJ b/l, sub 5th MPJ, right, plantar heels B/L ), were pared, and/or cut utilizing a sterile 15 blade, tissue nippers, and/or power dremel instrumentation by the physician of record - 96178, Q8. * Procedure Codes: 1 1721 DEBRIDE NAIL, 6 OR MORE, Modifiers: XS 05842 TRIM SKIN LESIONS, OVER 4, Modifiers: XS , Q8 * Follow Up: 3 Months * Images: * Sign off status: Completed true * Provider: Patrice Segovia DPM Date: 11/09/2024 Generated for Tristian cochran/Parth/Trent on: 11/10/2024 05:10 PM EDT History and Physical Notes * HPI (History of Present Illness) Category Sub-Category Detail Notes Category Not es At Risk footcare Pt States Last PCP Visit: Date: 5 Examination Category Sub-Category Detail Notes Category Not es Neurological SENSORY: Neurological exa m reveals intact sensorium, pain sensation normal, vibration sensation intact, pinprick sensation is normal in the lower extremities, Pt denies, anesthesia, burning, paresthesia, tingling, B/L Dermatologic SKIN FINDINGS: Skin exam reveal s Keratotic lesion(s) located at medial IPJ TA, sub 1st MPJ b/l, sub 5th MPJ, right, plantar heels B/L Orthopedic MUSCLE STRENGTH: 5/5 all groups in a symmetrical fashion, B/L General Examination GENERAL APPEARANCE: Reveals a pleasant, alert, well nourished, well-developed, well hydrated individual, who demonstrates proper attention to hygiene/body habitus, and is in no acute distress, Pt serves as own historian for office visit today ORIENTED: person, place, and t nick Vascular DP PULSES (B): 0/4, B/L PT PULSES (B): 0/4, B/L CAPILLARY FILL TIME: delayed, all digits , B/L TEMPERTURE GRADIENT (C): decreased, cool to cool, proximal to distal, B/L TROPHIC CONDITION-TEXTURE/ELASTICITY/TURGOR/HAIR GROWTH (B): decreased, fragile, thin, shiny skin, wi th sparse to absent hair growth, B/L EDEMA (C): 3/4, pitting, withou t aching pain, Leg(s), Ankle(s), Foot, B/L CLAUDICATION (C): denies, B/L REST PAIN: denies, B/L PIGMENTATION: rubrous, B/L PARESTHESIA (C): absent, B/L BURNING (C): absent, B/L Nails NAILS are: Elongated, overg rown, dystrophic, lytic, greater than 3mm thick, discolored and friable with crumbly malodorous subungual debris, with pain on palpation, TA, T1, T2, T3, T4, T5, T6, T7, T8, T9
[2024-11-10 14:44] VITALS: BP 142/74; PULSE 79; BMI 35.9
--- NOTE | 2024-11-10 14:44 | A.OFFVIS_ITS ---
Vital Signs 11/10/24 14:44 Height 5 ft 3 in Weight 202 lb 13.204 oz BMI 35.9 BP 142/74 H Blood Pressure Location Lt brachial Position Sitting Pulse 79 Intake Visit Reasons: 1 yr f/up Intake Note: 1 year follow-up with ekg feeling good Weight Loss Consultant Required: No Allergies ezetimibe (Zetia) Allergy (Unknown, Verified 11/18/21 12:51) muscle aches simvastatin Adverse Reaction (Unknown, Verified 11/18/21 12:51) myopathy statins Allergy (Unknown, Uncoded 11/18/21 12:51) muscle aches Medication List - Last Reconciled 11/10/24 by Jorge Luis Luz MD apixaban 5 mg PO BID aspirin (Adult Aspirin Regimen) 81 mg PO DAILY calcium carbonate (Calcium 500) 500 mg PO BID carvedilol 3.125 mg PO BID cholecalciferol (vitamin D3) 25 mcg PO DAILY rosuvastatin 5 mg PO DAILY HPI Comments Details: Gloria comes for follow-up. She has not had any symptoms of palpitation. Although she notices irregular pulse when she measures her blood pressure. She continues to have issues with leg edema and trouble in putting her stockings on. She is very worried about her having to do the same and having increased work. She does not exercise much and tries to walk but has symptoms or balance issues. No exertional chest pain. No lightheadedness, syncope. No bleeding issues or neurologic events. [facility] Medical History HTN (hypertension) Left bundle branch block Paroxysmal atrial fibrillation Surgical History Hx of parathyroidectomy Hx of hysterectomy Hx laparoscopic cholecystectomy Family History Father CVD (cardiovascular disease) Mother CVD (cerebrovascular disease) Social History Alcohol intake: never Patient Tobacco Use Status: Former Tobacco user Review of Systems Const Denies chills, Denies fatigue, Denies fever(s), Denies frequent falls, Denies weakness, Denies weight gain and Denies weight loss ENT Denies dizziness Card Denies chest pain, Denies leg edema, Denies lightheadedness, Denies palpitations, Denies dyspnea, Denies dyspnea on exertion, Denies orthopnea and Denies other (loss of consciousness) Resp Denies cough, Denies dyspnea and Denies dyspnea on exertion GI Denies hematochezia and Denies change in stool character Musc Denies abnormal gait, Denies muscle weakness, Denies numbness, Denies radiating pain into limb and Denies tingling Neuro Denies abnormal gait, Denies dizziness, Denies frequent falls, Denies numbness, Denies tingling and Denies weakness Endo Denies fatigue and Denies palpitations Physical Exam Vital Signs: Last Vital Signs Pulse 79 11/10/24 14:44 BP 142/74 H 11/10/24 14:44 BMI result Body Mass Index 35.9 Const General: cooperative, comfortable, no acute distress, alert and awake Nutritional Appearance: obese Orientation/consciousness: patient oriented x3 Limitations: ambulation with cane Neck Neck: Yes trachea midline and Yes no JVD Resp Effort & Inspection: normal respiratory effort Auscultation: clear to auscultation bilaterally Cardio Jugular venous distension: no JVD Palpation: normal PMI Rate: regular rate Rhythm: regular rhythm Heart sounds: S1 normal heart sound present, S2 normal heart sound present, no click, no gallops, Murmur heart sound present systolic early and no rubs GI Auscultation: normal bowel sounds Skin General skin exam: no rashes or lesions noted Neuro General: patient oriented x3 and no focal motor deficits Extrem General: No clubbing, No cyanosis and Yes edema (Three to 4+ below knee edema with weeping blisters) Psych Appearance: grossly normal Office Procedures EKG Details: EKG shows normal sinus rhythm with PACs with left bundle-branch block 04457-Iadpvbyxdvjeeegaa, Complete Assessment & Plan Assessment & Plan (1) Paroxysmal atrial fibrillation: Code(s): I48.0 - Paroxysmal atrial fibrillation Category: Medical Plan: Paroxysmal atrial fibrillation without any obvious clinical recurrence at this point time. She is noticing irregular pulse consistent with PACs. She has no symptoms related to it. This might be due to increased stress. Discussed about stress mitigation strategies. Avoidance of stimulants was discussed. No other change in therapy is recommended at this point time. (2) HTN (hypertension): Code(s): I10 - Essential (primary) hypertension Category: Medical Plan: Hypertension which is currently well optimized. Mostly blood pressure at home in the 130 systolic range. Continue monitor at home. Continue current carvedilol therapy. Low-salt diet was discussed. Stress mitigation strategies were discussed. Encouraged to gradually increase workload with regular physical activity. (3) Aortic stenosis: Code(s): I35.0 - Nonrheumatic aortic (valve) stenosis Category: Medical Plan: Aortic stenosis which appears to be [id number]. No interventions required. Follow-up echocardiogram near future. Continue aggressive risk factor modification. Blood pressure control as above. Consider statin therapy with target goal LDL less than 100 mg/dL. (4) Left bundle branch block: Code(s): I44.7 - Left bundle-branch block, unspecified Category: Medical Plan: Left bundle-branch block which is chronic without having any symptoms. Will follow-up echocardiogram in near future to assess for LV systolic function. No interventions required. Will follow up in the clinic in 1 year's time, sooner PRN. Thank you for allowing me to partake in his care Orders: Orders CA echo transthoracic complete Today I35.0 - Nonrheumatic aortic (valve) stenosis Coding Level of Care Code Est Pt Level 4 (30488) Complex EM visit Add On G2211 Diagnoses Paroxysmal atrial fibrillation I48.0 HTN (hypertension) I10 Aortic stenosis I35.0 Left bundle branch block I44.7 CPT Codes EKG - CPT: 32433-Vnelukmydfpxxldzm, Complete ([id number])
--- OUTSIDE RECORDS SUMMARY | 2024-11-10 17:10 | XMS_ITS | Clinical Summary ---
Author Organization [facility] Address [address] [place] [address] Care Team Providers Care Boxing Inspector Name Role Phone Bolivar Braden Primary Care Provider [phone] Medications No known medications Active Problems Problem Noted Date Diagnosed Date Venous stasis ulcer with edema of lower leg 01/02 Social History Tobacco Use Types Packs/Day Years Used Date Smoking Tobacco: Never Assessed Comments Unknown Sex and Gender Information Value Date Recorded Sex Assigned at Not on file Legal Sex Female 3:14 PM EDT Gender Identity Not on file Sexual Orientation Not on file Plan of Treatment Health Maintenance Due Date Last Done Comments Medicare AWV 1936 Osteoporosis Screening 1986 Alcohol/Substance Use Screening 03/04/2024 Depression Screening and Follow-Up 03/04/2024 Health Care Proxy Review 03/04/2024 Social Drivers of Health Annual Screening 03/04/2024 COVID-19 Vaccine ( season) 2024 12/15/2022, 08/01/2022, 12/10/2021, Additional history exists Influenza Vaccine (#1) 2024 , 01/11/2023, 11/23/2021, Additional history exists DTaP,Tdap,and Td Vaccines (2 - Tdap) 03/13/2027 03/13/2017 Zoster Vaccines Completed 03/26/2020, 01/02, 06/12/2015 Pneumococcal Vaccine: 50+ Years Completed 08/28/2022, 03/13/2017, 11/10/2015 RSV Vaccine (60+ years old and patients) Completed 05/18/2023 Hepatitis B Vaccines Aged Out No long er eligible based on patient's age to complete this topic Insurance [facility] MEDICARE Care Teams Boxing Inspector Relationship Specialty Start Date End Date Bolivar Braden [address] [place] [id number] PCP - General Internal Medicine 12/25/23
--- OUTSIDE RECORDS SUMMARY | 2024-11-10 17:11 | XMS_ITS | Patient Health Record ---
Author [facility] Address [address] [address] Care Team Providers Care Line Assembler Name Role Phone Asiya PASCUAL, Bolivar Primary Care Provider Kristen Irby Unavailable [phone] Vel Brito Unavailable [phone] Allergies Allergen (clinical drug ingredient) Drug/Non Drug Allergy documented on EMR Reaction Allergy Type Onset Date Status EPINEPHrine Unknown Drug Allergy Activ e Reason For Referral No Information Medications Medication SIG (Take, Route, Frequency, Duration) Notes Start Date End Date Status Prevent Tooth/Gum [place] Not-Taking lasix Not-Taking Carvedilol 3.125 MG Oral; Duration: 90 Days Active Citracal Calcium+D 600-40-50 0 MG-MG-UNIT as directed Orally Not-Takin g Vitamin D 1000 UNIT 1 tablet Orally Once a day; Duration: 30 day(s) Active Zetia 10 MG 1 tablet Orally Once a day; Duration: 30 day(s) Not-Taking Rosuvastatin Calcium 5 MG 1 tablet Orally Active Niacin Not-Taking Eliquis 5 MG Orally Active Atorvastatin Calcium Not-Taking Calcium 1200mg 2 tab Once a day Active Keflex 500 MG 1 capsule Orally every 12 hrs; Duration: 5 days 07/07/2015 Not-Taking Atenolol 25 MG 1 tablet Orally Once a day; Duration: 30 day(s) Not-Taking Keflex 500 MG 1 capsule Orally every 12 hrs; Duration: 7 days 06/19/2016 Not-Taking Aspir-Low 81 MG 1 tablet Orally Once a day; Duration: 30 day(s) Active Lasix 20 MG 1 tablet Orally Once a day Not-Taking PreviDent Not-Taking hydroCHLOROthiazide Not-Taking Immunizations Vaccine Route Administration Date Status [...] ast year? No Points 0 Interpretation Negative Problems Problem Type SNOMED Code ICD Code Onset Dates Problem Status W/U Status Risk Notes Problem Lymphedema (79128381) Lymphedema (I89.0) Active confirmed Problem Bilateral atherosclerosis of arteries of lower limbs (disorder) (82225546737450415 ) Atherosclerosis of [place] artery of both lower extremities, with unspecified presence of clinical manifestation (I70.203) Active confirmed Q7(A), Q8(2B), Q9(1B,2 C) Vital Signs Blood pressure diastolic 60 mm Hg 11/09/2024 Height 5 ft 3 in in 11/09/2024 Blood pressure systolic 135 mm Hg 11/09/2024 Weight 207 lbs 11/09/2024 BMI 36.66 kg/m2 11/09/2024 Procedures Procedure Date Ordered Date Performed Result Body Sit e 24618-LXVJXLE NAIL, 6 OR MORE 03/09/2024 N/A 43773-NIFS SKIN LESIONS, OVER 4 03/09/2024 N/A 19441-AHBPUCR NAIL, 6 OR MORE 07/08/2024 N/A 55778-EOIR SKIN LESIONS, OVER 4 07/08/2024 N/A 01909-DYCLWEC NAIL, 6 OR MORE 11/09/2024 N/A 57282-UZSA SKIN LESIONS, OVER 4 11/09/2024 N/A Encounters Encounter Location Date Provider Diagnosis [facility] [place] [address] [place] [address] 11/28/2023 Vel Brito Unspecified atherosclerosis of [place] arteries of extremities, bilateral legs I70.203 ; Tinea unguium B35.1 ; Xerosis cutis L85.3 ; Pain in right toe(s) M79.674 ; Pain in left toe(s) M79.675 ; Ingrowing nail L60.0 and Lymphedema I89.[address] [address] 03/09/2024 Kristen Segovia Atherosclerosis of [place] artery of both lower extremities, with unspecified presence of clinical manifestation I70.203 ; Tinea unguium B35.1 ; Pain in right toe(s) M79.674 ; Pain in left toe(s) M79.675 and Lymphedema I89.[address] [address] 07/08/2024 Kristen Segovia Atherosclerosis of [place] artery of both lower extremities, with unspecified presence of clinical manifestation I70.203 ; Tinea unguium B35.1 ; Pain in right toe(s) M79.674 ; Pain in left toe(s) M79.675 and Lymphedema I89.[address] [address] 11/09/2024 Kristen Segovia Atherosclerosis of [place] artery of both lower extremities, with unspecified presence of clinical manifestation I70.203 ; Tinea unguium B35.1 ; Pain in right toe(s) M79.674 ; Pain in left toe(s) M79.675 and Lymphedema I89.[address] [address] 03/09/2024 Kristen Segovia Assessments Encounter Date Diagnosis (ICD Code) Assessment Notes Treatment Notes Treatment Clinical Notes Section Notes 11/28/2023 Tinea unguium (ICD-10 - B35.1) 11/28/2023 Unspecified atherosclerosis of [place] arteries of extremities, bilateral legs (ICD-10 - I70.203) 03/09/2024 Atherosclerosis of [place] artery of both lower extremities, with unspecified presence of clinical manifestation (ICD-10 - I70.203) Q7(A), Q8(2B), Q9(1B,2C) 07/08/2024 Atherosclerosis of [place] artery of both lower extremities, with unspecified presence of clinical manifestation (ICD-10 - I70.203) Q7(A), Q8(2B), Q9(1B,2C) 11/09/2024 Atherosclerosis of [place] artery of both lower extremities, with unspecified presence of clinical manifestation (ICD-10 - I70.203) Q7(A), Q8(2B), Q9(1B,2C) 11/09/2024 Tinea unguium (ICD-10 - B35.1) 07/08/2024 Tinea unguium (ICD-10 - B35.1) 03/09/2024 Tinea unguium (ICD-10 - B35.1) 11/28/2023 Xerosis cutis (ICD-10 - L85.3) 11/28/2023 Pain in right toe(s) (ICD-10 - M79.674) 03/09/2024 Pain in right toe(s) (ICD-10 - M79.674) 07/08/2024 Pain in right toe(s) (ICD-10 - M79.674) 11/09/2024 Pain in right toe(s) (ICD-10 - M79.674) 11/09/2024 Pain in left toe(s) (ICD-10 - M79.675) 07/08/2024 Pain in left toe(s) (ICD-10 - M79.675) 03/09/2024 Pain in left toe(s) (ICD-10 - M79.675) 11/28/2023 Pain in left toe(s) (ICD-10 - M79.675) 11/28/2023 Ingrowing nail (ICD-10 - L60.0) 03/09/2024 Lymphedema (ICD-10 - I89.0) 07/08/2024 Lymphedema (ICD-10 - I89.0) 11/09/2024 Lymphedema (ICD-10 - I89.0) 11/28/2023 Lymphedema (ICD-10 - I89.0) Plan Of Treatment Pending Test Test Name Order Date 14991-HBOECJH NAIL, 6 OR MORE 01/11/2016 09056-JXTKAMP NAIL, 6 OR MORE 04/11/2016 93867-FFZKEAZ NAIL, 6 OR MORE 06/14/2016 52184-UBCIUMW NAIL, 6 OR MORE 12/13/2016 90926-UEOUXOA NAIL, 6 OR MORE 07/10/2017 89096-JOVRGAK NAIL, 6 OR MORE 10/01/2017 69801-IGTAZGH NAIL, 6 OR MORE 12/16/2017 06727-MIODWLS NAIL, 6 OR MORE 03/09/2024 89212-ARTCCYM NAIL, 6 OR MORE 07/08/2024 30093-CXJXPTM NAIL, 6 OR MORE 11/09/2024 53370-CDQYYBI NAIL, 1-5 12/20/2011 51439-DVXEFDB NAIL, 1-5 05/07/2012 63108-Aqdwaelj Plate 05/07/2012 78844-Bcauxuay Plate 07/07/2015 50384-Qkkfvgqf Plate 06/14/2016 20600- Debride <25 sq cm 07/20/2015 84488- Debride <25 sq cm 06/27/2016 20639 I&D ABSCESS- SIMPLE,SINGLE 021 56909 I&D ABSCESS- SIMPLE,SINGLE 016 69419-HDVQ SKIN LESIONS, OVER 4 11/10/19 25 34513-LANQ SKIN LESIONS, OVER 4 07/09/19 25 63518-ZTQF SKIN LESIONS, OVER 4 06/28/19 21 71749-QQBM SKIN LESIONS, OVER 4 10/04/19 21 81866-ARCA SKIN LESIONS, OVER 4 01/10/20 21 04495-RMPX SKIN LESIONS, OVER 4 05/16/19 22 03960-OWRN SKIN LESIONS, OVER 4 03/09/19 25 83652-LGZA SKIN LESIONS, OVER 4 09/23/19 20 57709-MASZ SKIN LESIONS, OVER 4 12/28/19 20 60680-KUWJ SKIN LESIONS, OVER 4 03/28/19 21 25852-ONFZ SKIN LESIONS, OVER 4 03/17/19 19 48049-MVVZ SKIN LESIONS, OVER 4 06/24/19 19 18341-ECYJ SKIN LESIONS, OVER 4 08/26/19 19 11245-LVSP SKIN LESIONS, OVER 4 10/28/19 19 38453-EBYK SKIN LESIONS, OVER 4 01/20/20 19 59324-SCBE SKIN LESIONS, OVER 4 05/04/19 20 38341-NQWO SKIN LESIONS, OVER 4 12/14/19 17 70179-WWHT SKIN LESIONS, OVER 4 12/17/19 18 69629-LQFG SKIN LESIONS, OVER 4 10/02/19 18 77031-KZRG SKIN LESIONS, OVER 4 07/20/19 16 77781-FHVO SKIN LESIONS, OVER 4 06/15/19 17 62235-WJGK SKIN LESIONS, 2 TO 4 07/11/19 18 16511-XNKC NAIL(S) 07/20/2015 20509-PUAGCNKW OF HEMATOMA/FLUID 020 Next Appt Details Provider Name:Kristen Hernandez yoon, 02/08/2025 02:30:00 PM, [address] [place], [address], Insurance Providers Payer Name Payer Address Payer Phone Subscriber Number Group Number Insured Name Patient Relationship to Insured Coverage Start Date Coverage End Date Medicare National Govt Sv[employer] [address] [place] [address] [id number] Ella Velan Self - patient is the insured 2 [employer] [address] [place] [address] [id number] Ella Velan Self - patient is the insured Medical (General) History Medical History History ICD Code Arthritis Cholesterol high blood pressure measles mumps chicken pox Surgical History Surgery Date(Month/Year) appendectomy 1969 cholecystectomy 2009 parathyroidectomy 2009 hysterectomy 2010 bladder surgery 2010 Hospitalization History Reason Date(Month/Year) [facility] [place] [facility] - fell 6 hrs test done F/L w/PCP on 11/21/2111/2021 [facility] [place]-Eye strok e- multiple ER visits 03/2018 [facility] [place] [facility] - migraine 12/14/17 [place] Code disoriented 01/2017
--- OUTSIDE RECORDS SUMMARY | 2024-11-10 17:11 | XMS_ITS | Clinical Summary ---
Author Organization [facility] Address [address] [place] [phone] Phone Care Team Providers Care Watch Repairer Name Role Phone Unknown, Unknown Primary Care Provider Tung lable Allergies Active Allergy Reactions Criticality Noted Date Comments Epinephrine Unknown 03/26/2012 Medications atenolol (TENORMIN) 25 MG tablet Take 25 mg by mouth daily. Active Active Problems Problem Noted Date Diagnosed Date Hyperopia of both eyes with astigmatism and pres byopia 05/15/2017 Open angle with borderline f indings and low glaucoma risk in both eyes 05/15/2017 Age-related nuclear cataract of both eyes 2014 Cataract of both eyes 02/07/2015 Overview (03/24/2016): Cataracts Narrow angle of anterior chamber of both eyes Overview (04/24/2014): Anatomical narrow angle glaucoma; s/p LPI OU (2013) Hypertensive disorder 03/26/2012 Overview (04/24/2014): Hypertensive disorder Osteoarthritis of knee 03/26/2012 Overview (04/24/2014): Osteoarthritis of knee Hypercholesterolemia 03/26/2012 Overview (04/24/2014): Hypercholesterolemia Encounters Date Type Department Care Team Description 09/23/2024 3:19 PM EDT - 09/23/2024 11:59 PM EDT Hospital Encounter [facility] Specimen Processing [address] [place] [address] Audrey Mai MD Discharge Disposition: Home or Self Care 09/23/2024 Transcribe Orders [facility] Specimen Processing [address] [place] [address] Audrey Mai MD Non-bullous impetigo (Primary Dx) from Last 3 Months Family History Medical History Relation Comments Hypertension Mother Hypertension Stroke Mother Cerebrovascular Accident Heart attack Paternal Grandfather Myocardial Infarction Relation Status Comments Mother Cause of : Cerebrovascular Accident Paternal Grandfather Cause of De ath: Myocardial Infarction Social History Tobacco Use Types Packs/Day Years Used Date Smoking Tobacco: Former Cigarettes Q uit: 1967 Smokeless Tobacco: Never Alcohol Use Standard Drinks/Week Comments Yes 0 (1 standard drink = 0.6 oz pur e alcohol) rarely Education Answer Date Recorded Are you interested in more education? Not on geronimo e 06/29/2022 Are you concerned about learning? Not on file 06/29/2022 No 06/29/2022 No 06/29/2022 Digital Access Answer Date Recorded No 07/30/2022 No 07/30/2022 No 07/30/2022 Reliable internet access at home? Not on file 07/30/2022 Device with a working camera? Not on file Comments Unknown Sex and Gender Information Value Date Recorded Sex Assigned at Not on file Legal Sex Female 4:52 AM EST Gender Identity Not on file Sexual Orientation Not on file Plan of Treatment Health Maintenance Due Date Last Done Comments Adult Td,Tdap Booster 1936 DEPRESSION SCREENING 1948 OSTEOPOROSIS SCREENING INITI AL (ONE-TIME) 2001 RSV VACCINE (1 - 1-dose 75+ series) 09/10/2011 PNEUMOCOCCAL VACCINES (50+ years) (2 of 2 - PPSV23) 11/09/2016 11/10/2015 COVID-19 VACCINE (2 - 2023-2 5 season) 2023 05/12/2020 INFLUENZA VACCINE (#1) 2024 9, 11/08/2016, 11/28/2015 ZOSTER VACCINES Completed 03/26/2020, 01/20/2020 HEPATITIS A VACCINES Aged Out No long er eligible based on patient's age to complete this topic HIB VACCINES Aged Out No longer eligi ble based on patient's age to complete this topic MENINGOCOCCAL VACCINES (ACWY) Aged Out No longer eligible based on patient's age to complete this topic MENINGOCOCCAL VACCINES (B) Aged Out N o longer eligible based on patient's age to complete this topic Medical Devices Not on file Procedures Procedure Name Priority Date/Time Associated Diagnosis Comments WOUND CULTURE/SMEAR Routine 09/23/2024 1 :50 PM EDT Non-bullous impetigo from Last 3 Months Results * (ABNORMAL) Wound culture/smear (09/23/2024 1:50 PM EDT) Special Requests None 09/23/2024 3:22 PM EDT [facility] GRAM STAIN No WBC seen on smear. Rare GRAM POSITIVE COCCI 09/24/2024 10:50 AM EDT [facility] Wound Culture/Smear MIXED ORGANISMS RESEMBLING CUTANEOUS TRINA(A) 09/25/2024 9:05 AM EDT [facility] Other (Skin) 09/23/2024 1:50 PM EDT 09/23/2024 3:32 PM EDT Comment:LEFT LATERAL SUPERIO R CHEST us Audrey Mai MD MICROBIOLOGY - GENERAL ORDShireen TINOCO Final Result [facility] [address] [place] [address] from Last 3 Months Insurance MEDICARE PART A & B [employer] MEDEX SUPPLEMENT MEDICARE PART A & B [place] [employer] MED[employer] SUPPLEMENT MEDICARE PART A & B [place] [employer] MEDEX SUPPLEMENT Care Teams Watch Repairer Relationship Specialty Start Date End Date Unknown, Unknown, PCP - General 02/21/17 Additional Source Comments The information contained in this document represents components of the legal health record. It is not the complete legal health record.[facility]
--- OUTSIDE RECORDS SUMMARY | 2024-11-10 17:11 | XMS_ITS | Clinical Summary ---
Author Organization [facility] Address [address] [place] [address] Care Team Providers Care Air Compressor Mechanic Name Role Phone Unavailable Primary Care Provider Unavailabl e Social History Tobacco Use Types Packs/Day Years Used Date Smoking Tobacco: Never Assessed Comments Unknown Sex and Gender Information Value Date Recorded Sex Assigned at Not on file Legal Sex Female 5:48 PM EST Gender Identity Not on file Sexual Orientation Not on file Plan of Treatment Health Maintenance Due Date Last Done Comments DTaP,Tdap,and Td Vaccines (1 - Tdap) 09/10/1954 Pneumococcal Vaccine: 50+ Ye ars (1 of 1 - PCV) 1986 Zoster Vaccines (1 of 2) 1986 RSV Immunization Adult Patie nts (1 - 1-dose 75+ series) 09/10/2011 COVID-19 Vaccine ( - 2023-2 5 season) 2023 Depression Screening 03/04/2024 Influenza Vaccine (#1) 2024 HIB Vaccines Aged Out No longer eligi ble based on patient's age to complete this topic HPV Vaccines Aged Out No longer eligi ble based on patient's age to complete this topic Hepatitis A Vaccines Aged Out No long er eligible based on patient's age to complete this topic Hepatitis B Vaccines Aged Out No long er eligible based on patient's age to complete this topic IPV Vaccines Aged Out No longer eligi ble based on patient's age to complete this topic MMR Vaccines Aged Out No longer eligi ble based on patient's age to complete this topic Meningococcal ACWY Vaccine Aged Out N o longer eligible based on patient's age to complete this topic Meningococcal B Vaccine Aged Out No l onger eligible based on patient's age to complete this topic RSV Immunization Patients Un jeet 20 months Aged Out No longer eligible b ased on patient's age to complete this topic Varicella Vaccines Aged Out No longer eligible based on patient's age to complete this topic
--- OUTSIDE RECORDS SUMMARY | 2024-11-10 17:11 | XMS_ITS | Patient Health Record ---
Author Organization [facility] Address [address] [place] [address] Care Team Providers Care Mechanic General Operational Test Name Role Phone Bolivar Braden MD Primary Care Provider Julian Zelaya [phone] Allergies Allergen (clinical drug ingredient) Drug/Non Drug Allergy documented on EMR Reaction Allergy Type Onset Date Status EPINEPHrine Unknown Drug Allergy Activ e Reason For Referral No Information Medications Medication SIG (Take, Route, Fr equency, Duration) Notes Start Date End Date Status atenolol 25 MG 1 TABLET Oral ONCE A DAY Active Eliquis 5 MG 1 tablet Orally once a day Active Immunizations Vaccine Route Administration Date Status Comme nts Flu vaccine no Preserv 3 and > Unknown 12/02/2014 Admin istered Flu vaccine no Preserv 3 and > Unknown 11/05/2016 Admin istered Problems Problem Type SNOMED Code ICD Code Onset Dates Problem Status W/U Status Risk Notes Problem 780205366 Encounter for screening for malignant neoplasm of colon (Z12.11) Active confirmed Problem 623398843 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) Active confirmed Problem 312429577 Nausea (R11.0) Active confirmed Problem Screening for malignant neoplasm of rectum (251581701) Encounter for screening for malignant neoplasm of rectum (Z12.12) Active confirmed Plan Of Treatment Future Test Test Name Order Date COLONOSCOPY 03/25/2015 Insurance Providers Payer Name Payer Address Payer Phone Subscriber Number Group Number Insured Name Patient Relationship to Insured Coverage Start Date Coverage End Date MEDICARE OF [place] [address] [place] [address] [phone] [id number] MELO WHITAKER Self - patient is the insured MEDEX ATTN CLAIMS [address] [place] [address] [id number] MELO WHITAKER Self - patient is the insured Medical (General) History Medical History History ICD Code HTN Low Vitamin D Arthritis Colon polyps--tubular adenom a removed in 2001,and only a hyperplastic polyp removed in 2007 Urinary incontinence Left bundle branch block (LBBB) Denies [place],DM,CVA,Lung disease,renal dise ase Colonoscopy in 06/2015--1 sma ll tubular adenoma, diverticulosis, internal hemorrhoids Mild IBS with loose stools-- pallavi. in restaurants--neg. labs for celiac disease in 2016 Atrial fibrillation--started on Eliquis 06/2017 Surgical History Surgery Date(Month/Year) APPENDECTOMY CHOLECYSTECTOMY NARDA with a bladder suspension in approx. 2011
== END 2024-11-10 15:24 | disposition home or self-care (01) ==
LOC: HO.HCS 14:44
PROVIDERS: PCP Internal Medicine; Visit Provider Internal Medicine Cardiovascular Disease
DX: I48.0 Paroxysmal atrial fibrillation (principal); I10 Essential (primary) hypertension; I35.0 Nonrheumatic aortic (valve) stenosis; I44.7 Left bundle-branch block, unspecified
CPT/HCPCS: 93010; 99214; G2211

== ENCOUNTER → 2024-11-10 14:43 | Outpatient (BNVA) | payer MEDICARE, SELFPAY | PROVIDERS: PCP Internal Medicine; Visit Provider Internal Medicine Cardiovascular Disease | DX: I48.0 Paroxysmal atrial fibrillation (principal); I10 Essential (primary) hypertension; I35.0 Nonrheumatic aortic (valve) stenosis; I44.7 Left bundle-branch block, unspecified; Z87.891 Personal history of nicotine dependence | CPT/HCPCS: 93005; 99212 ==

== ENCOUNTER → 2024-12-07 14:06 | Outpatient (REF) | payer MEDICARE, SELFPAY ==
--- OUTSIDE RECORDS SUMMARY | 2023-10-28 08:30 | XMS_ITS ---
Author Organization [facility] Address [address] [facility] [address] Care Team Providers Care Edge Trimmer Mechanic Name Role Phone Bolviar Braden MD Primary Care Provider Kristen Irby Unavailable [phone] Vel Jarrett Unavailable [phone] REASON FOR VISIT Painful nail(s) aggrevated by shoes and causing difficulty standing/walking. Encounters Encounter Location Date Provider Diagnosis [facility] [address] [place] [address] 10/28/2023 Vel Jarrett Unspecified atherosclerosis of [place] arteries of extremities, bilateral legs I70.203 ; Tinea unguium B35.1 ; Xerosis cutis L85.3 ; Pain in right toe(s) M79.674 ; Pain in left toe(s) M79.675 ; Ingrowing nail L60.0 and Lymphedema I89.0 Assessments Encounter Date Diagnosis (ICD Code) Assessment Notes Treatment Notes Treatment Clinical Notes Section Notes 10/28/2023 Unspecified atherosclerosis of [place] arteries of extremities, bilateral legs (ICD-10 - [...] Provider Name:Kristen nettles, 02/08/2025 02:30:00 PM, [address] [place], [address], Procedure Notes * Category Sub-Category Detail Notes [...] as necessary. Patient chooses, no pharmaceutical tx (08481) Keratoma Treatment Parring or Cutting o f Benign Hyperkeratotic Lesion(s) 14044 ( >4 Lesions) - The Benign hyperkeratotic lesions, as described above were pared, and/or cut utilizing a sterile #15 blade, tissue nippers, and/or dremel, Q8 Progress Notes * DANEJyothi Crumplyn TDOB: [birth year] (89 yo F)Acc No.[id number]:10/28/2023 Progress Note Patient: Gloria DUNCAN Provider: Gabriel Brito DPM :1935 A ge:88 Y S ex:Female Date:10/28/2023 Address:[address] [place], [place] [id number] Pcp:Bolivar Braden MD Subjective: * Chief Complaints: [...] enies. C ardiovascular: Pacemaker d enies. M DOG CONTROL OFFICER d enies. W PW d enies. C [...] B/L. G eneral Examination: GENERAL APPEARANCE: R cheloeals a pleasant, alert, well nourished, well developed, well hydrated individual, who demonstrates proper attention to hygene/body habitus, and is in no acute distress. ORIENTED: p erson, place, and time. O rthopedic: MUSCLE STRENGTH: 5 /5 all groups in a symmetrical fashion , B/L. BUNION: Medially prominent 1st MPJ, B/L, Lateral tracking 1st MPJ reducable. Assessment: * Assessment: 1. U nspecified atherosclerosis of [place] arteries of extremities, bilateral legs - I70.203 [...] as necessary. Patient chooses, no pharmaceutical tx (69359). K eratoma Treatment: Parring or Cutting of Benign Hyperkeratotic Lesion(s) 1 1057 ( >4 Lesions) - The Benign hyperkeratotic lesions, as described above were pared, and/or cut utilizing a sterile #15 blade, tissue nippers, and/or dremel, Q8. * Procedure Codes: 1 1721 DEBRIDE NAIL, 6 OR MORE, Modifiers: XS , 20023 TRIM SKIN LESIONS, OVER 4, Modifiers: Q8 * Follow Up: 3 Months * Images: * The named appointment provid er may or may not be the originator of this progress note, and it is not deemed complete until electronically signed by the appointment provider. Sign off status: Pending * Provider: Gabriel Brito DPM Date: 0 10/28/2023 Generated for Tristian cochran/Parth/Trent on: 04:40 PM EDT History and Physical Notes * [...]
--- NOTE | 2024-12-07 14:09 | CA_ITS ---
Transthoracic Echocardiogram Patient (Last, First, Middle): Gloria Vela T Gender: F Date of : 1935 Age: 89 Procedure Date: 12/07/2024 Procedure Type: Transthoracic Echocardiogram Location: OP Height: 157.48 cm Weight: 92.99 kg BSA: 1.93 m2 Heart Rate: bpm BP: 135 / 78 mmHg Supervisor [employer]: Referring MD: Jorge Luis Luz MD Desktop Support Engineer: Jorge Luis Luz MD Symptoms: I35.0 - Nonrheumatic aortic (valve) stenosis Study Quality: Adequate ECG Rhythm: Sinus Conclusions: - 1. Normal LV ejection fraction of 60 65% with mild LVH with impaired relaxation filling pattern 2. Mild aortic stenosis 3. Calcific mitral valve changes noted, mitral stenosis can not be entirely ruled out 4. Normal RV systolic pressure 5. 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 No gross pericardial effusion Findings Left Ventricle Normal left ventricular size and systolic function. There is mildly increased left ventricular wall thickness. The visually estimated ejection fraction is between 60-65%. Diastolic function is indeterminate on the basis of available data. Spectral Doppler is indicative of an impaired relaxation filling pattern. Right Ventricle Normal right ventricular cavity size and systolic function. Atria The left atrium is normal in size. There is no evidence of interatrial shunt. The right atrium is normal in size. Aortic Valve There is moderate calcification of the aortic valve. There is moderate thickening of the aortic valve. There is mild aortic valve stenosis. There is no aortic valve regurgitation. Mitral Valve There is moderate anterior and severe posterior mitral leaflet thickening. There is severe mitral annular calcification. There is trace mitral valve regurgitation. There is no mitral valve stenosis. Pulmonic Valve The pulmonic valve was not well visualized. Tricuspid Valve Likely normal tricuspid valve structure and function. There is mild tricuspid valve regurgitation. The right ventricular systolic pressure is normal. The right ventricular systolic pressure is 26 mmHg. Normal right atrial pressure. There is no evidence of pulmonary hypertension. Great Vessels The pulmonary artery was not well visualized. There is mild dilatation of the ascending aorta measuring 4.00 cm. Venous The inferior vena cava is normal in size and collapses greater than 50% with inspiration. Pericardium/Pleural There is no evidence of pericardial effusion. Measurements 2D Linear Measurements IVSd: 1.37 0.6-0.9/0.6-1.0 cm LVIDd: 3.03 3.9-5.3/4.2-5.9 cm LVIDd Index: 1.57 2.4-3.2/2.2-3.1 cm/m2 LVIDs: 1.99 2.0-3.6 cm LVPWd: 1.34 0.7-1.1 cm Ao Root: 3.20 2.1-3.5 cm LA Diam: 3.40 2.7-3.8/3.0-4.0 cm LAIDs Index: 1.76 1.5-2.3 cm/m2 LV Mass: 167.75 67-162/88-224 g LV Mass Index: 86.92 43-95/49-115 g/m2 LVOT Diam: 2.00 3.0+(-)1.3 cm 2D Systolic Function EF 4C: 66.50 >55% EF 2C: 62.70 >55% EF BiP: 63.60 >55% Mitral Valve MV VTI: 0.41 MV Pk Wilfredo: 1.79 MV Mn Wilfredo: 1.07 MV Pk Grad: 13.00 MV Mn Grad: 6.00 MV Pk E: 1.16 MV PK A: 1.55 MV Decel Time: 93.00 E/A: 0.70 E'Lateral: 7.62 E'Medial: 4.13 E/E' Med: 28.10 E/E' Lat: 15.20 PHT: 27.00 MVA PHT: 8.15 MVA Continuity: 2.31 Decel Kinney: 12.47 Aortic Valve AoV Pk Wilfredo: 2.48 AoV Mn Wilfredo: 1.69 AoV VTI: 0.59 AoV Pk Grad: 25.00 Aov Mn Grad: 13.00 CASEY Cont.VTI: 1.62 LVOT LVOT Pk Wilfredo: 1.31 LVOT Mn Wilfredo: 0.93 LVOT VTI: 0.30 LVOT Pk Grad: 7.00 LVOT Mn Grad: 4.00 LVOT Diam: 2.00 LVOT Area: 3.14 Diastolic Function MV Pk E: 1.16 MV Pk A: 1.55 E/A: 0.70 E'Medial: 4.13 E/E' Med: 28.10 E' Laterial: 7.62 E/E' Lat: 15.20 Right Ventricle TAPSE (mm): 29.00 TVS' Wilfredo: 12.00 Tricuspid Valve TR Pk Wilfredo: 2.40 TR Pk Grad: 23.00 RA Press: 3.00 RVSP: 26.00 Great Vessels Aorta Ao Root-2D: 3.20 2.0-3.7 cm Ao Asc: 4.00 2.1-3.4 cm Pulmonary Valve PV Pk Wilfredo: 1.14 Peak PV Grad: 5.00 Updated in Other Vendor System with Status of Final Jorge Luis Luz MD electronically signed on 12/08/2024 12:33:45 PM with status of Final
--- OUTSIDE RECORDS SUMMARY | 2024-12-07 16:40 | XMS_ITS | Clinical Summary ---
Author Organization [facility] Address [address] [place] [address] Care Team Providers Care Purchasing Internship Name Role Phone Bolivar Braden Primary Care Provider [phone] Medications No known medications Active Problems Problem [...] patient's age to complete this topic Insurance [facility] MEDICARE Care Teams Purchasing Internship Relationship Specialty Start Date End Date Bolivar Braden [address] [place] [id number] PCP - General Internal Medicine 12/25/23
--- OUTSIDE RECORDS SUMMARY | 2024-12-07 16:40 | XMS_ITS | Clinical Summary ---
Author Organization [facility] Address [address] [place] [address] Care Team Providers Care Social Studies Teacher Name Role Phone Unavailable Primary Care Provider [...] nts (1 - 1-dose 75+ series) 09/10/2011 Depression Screening 03/04/2024 COVID-19 Vaccine (1 - 2023-2 5 season) 2024 Influenza Vaccine (#1) 2024 HIB Vaccines Aged [...]
--- OUTSIDE RECORDS SUMMARY | 2024-12-07 16:40 | XMS_ITS | Patient Health Record ---
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) Active confirmed Problem 102608070 Nausea (R11.0) Active confirmed Problem Screening for malignant neoplasm of rectum (865981768) Encounter for screening for malignant neoplasm of rectum (Z12.12) Active confirmed Plan Of Treatment Future Test Test Name Order Date COLONOSCOPY 03/25/2015 Insurance Providers Payer Name Payer Address Payer Phone Subscriber Number Group Number Insured Name Patient Relationship to Insured Coverage Start Date Coverage End Date MEDICARE OF [place] [address] [place] [address] [id number] MELO WHITAKER Self - patient is the insured MEDEX ATTN CLAIMS [address] [place] [address] [id number] MELO WHITAKER Self - patient is the insured Medical (General) History Medical History History ICD Code HTN Low Vitamin D Arthritis Colon polyps--tubular adenom a removed in 2001,and only a hyperplastic polyp removed in 2007 Urinary incontinence Left bundle branch block (LBBB) Denies [place],DM,CVA,Lung disease,renal dise ase Colonoscopy in 06/2015--1 sma ll tubular adenoma, diverticulosis, internal hemorrhoids Mild IBS with loose stools-- pallavi. in restaurants--neg. labs for celiac disease in 2016 Atrial fibrillation--started on Eliquis 06/2017 Surgical History Surgery Date(Month/Year) APPENDECTOMY CHOLECYSTECTOMY NARDA with a bladder suspension in approx. 2011
--- OUTSIDE RECORDS SUMMARY | 2024-12-07 16:41 | XMS_ITS | Patient Health Record ---
[facility] Address [address] [place] [address] Care Team Providers Care Dietitian Consultant Name Role Phone Bolivar Braden MD Primary Care Provider Kristen Irby Unavailable [phone] Allergies Allergen (clinical drug ingredient) Drug/Non Drug Allergy documented on EMR Reaction Allergy Type Onset Date Status EPINEPHrine Unknown Drug Allergy Activ e Reason For Referral No Information Medications Medication SIG (Take, Route, Frequency, Duration) Notes Start Date End Date Status Prevent Tooth/Gum [place] Not-Taking lasix Not-Taking Carvedilol 3.125 MG Oral; [...] Status W/U Status Risk Notes Problem Lymphedema (03128756) Lymphedema (I89.0) Active confirmed Problem Bilateral atherosclerosis of arteries of lower limbs (disorder) (50890092478295980 ) Atherosclerosis of [place] artery of both lower extremities, with unspecified presence of clinical manifestation (I70.203) Active confirmed Q7(A), Q8(2B), Q9(1B,2 C) Vital Signs Blood pressure diastolic 60 mm Hg 11/09/2024 Height 5 ft 3 in in 11/09/2024 Blood pressure systolic 135 mm Hg 11/09/2024 Weight 207 lbs 11/09/2024 BMI 36.66 kg/m2 11/09/2024 Procedures Procedure Date Ordered Date Performed Result Body Sit e 68371-NOYUIJG NAIL, 6 OR MORE 03/09/2024 N/A 61652-NYAW SKIN LESIONS, OVER 4 03/09/2024 N/A 19509-XZAKXRP NAIL, 6 OR MORE 07/08/2024 N/A 90019-QKQX SKIN LESIONS, OVER 4 07/08/2024 N/A 70501-REJAWCE NAIL, 6 OR MORE 11/09/2024 N/A 23202-KNAU SKIN LESIONS, OVER 4 11/09/2024 N/A Encounters Encounter Location Date Provider Diagnosis [facility] [address] [place] [address] 03/09/2024 Kristen Segovia Atherosclerosis of [place] artery of both lower extremities, with unspecified presence of clinical manifestation I70.203 ; Tinea unguium B35.1 ; Pain in right toe(s) M79.674 ; Pain in left toe(s) M79.675 and Lymphedema I89.[address] [address] 07/08/2024 Kristen Segovia Atherosclerosis of [place] artery of both lower extremities, with unspecified presence of clinical manifestation I70.203 ; Tinea unguium B35.1 ; Pain in right toe(s) M79.674 ; Pain in left toe(s) M79.675 and Lymphedema I89.[address] [address] 11/09/2024 Kristen Segovia Atherosclerosis of [place] artery of both lower extremities, with unspecified presence of clinical manifestation I70.203 ; Tinea unguium B35.1 ; Pain in right toe(s) M79.674 ; Pain in left toe(s) M79.675 and Lymphedema I89.[address] [address] 03/09/2024 Kristen Segovia Assessments Encounter Date Diagnosis (ICD Code) Assessment Notes Treatment Notes Treatment Clinical Notes Section Notes 07/08/2024 Atherosclerosis of [place] artery of both lower extremities, with unspecified presence of clinical manifestation (ICD-10 - I70.203) Q7(A), Q8(2B), Q9(1B,2C) 11/09/2024 Atherosclerosis of [place] artery of both lower extremities, with unspecified presence of clinical manifestation (ICD-10 - I70.203) Q7(A), Q8(2B), Q9(1B,2C) 03/09/2024 Atherosclerosis of [place] artery of both lower extremities, with unspecified presence of clinical manifestation (ICD-10 - I70.203) Q7(A), Q8(2B), Q9(1B,2C) 03/09/2024 Tinea unguium (ICD-10 - B35.1) 11/09/2024 Tinea unguium (ICD-10 - B35.1) 07/08/2024 Tinea unguium (ICD-10 - B35.1) 07/08/2024 Pain in right toe(s) (ICD-10 - M79.674) 11/09/2024 Pain in right toe(s) (ICD-10 - M79.674) 03/09/2024 Pain in right toe(s) (ICD-10 - M79.674) 03/09/2024 Pain in left toe(s) (ICD-10 - M79.675) 11/09/2024 Pain in left toe(s) (ICD-10 - M79.675) 07/08/2024 Pain in left toe(s) (ICD-10 - M79.675) 07/08/2024 Lymphedema (ICD-10 - I89.0) 11/09/2024 Lymphedema (ICD-10 - I89.0) 03/09/2024 Lymphedema (ICD-10 - I89.0) Plan Of Treatment Pending Test Test Name Order Date 12498-QIWMVMK NAIL, 6 OR MORE 01/11/2016 11145-PABOEKD NAIL, 6 OR MORE 04/11/2016 44876-RZKCWZX NAIL, 6 OR MORE 12/13/2016 80678-SCJIVJV NAIL, 6 OR MORE 07/10/2017 49681-IIZKRFL NAIL, 6 OR MORE 10/01/2017 60543-JNQSXLE NAIL, 6 OR MORE 03/09/2024 65299-NZCSNPE NAIL, 6 OR MORE 07/08/2024 06718-PBJVDAX NAIL, 6 OR MORE 11/09/2024 31999-OEOWNIQ NAIL, 6 OR MORE 06/14/2016 52502-YOZUJFH NAIL, 6 OR MORE 12/16/2017 09645-DNRQJIY NAIL, 1-5 12/20/2011 90723-PYSVRDK NAIL, 1-5 05/07/2012 69180-Egpcvwwx Plate 05/07/2012 81022-Ysytabsb Plate 06/14/2016 09374-Qbwvnmlh Plate 07/07/2015 31048- Debride <25 sq cm 07/20/2015 69989- Debride <25 sq cm 06/27/2016 19426 I&D ABSCESS- SIMPLE,SINGLE 021 88811 I&D ABSCESS- SIMPLE,SINGLE 016 99486-BFNB SKIN LESIONS, OVER 4 06/28/19 21 51583-ZHUF SKIN LESIONS, OVER 4 10/04/19 21 69282-RQRQ SKIN LESIONS, OVER 4 01/10/20 21 80790-KXQB SKIN LESIONS, OVER 4 05/16/19 22 28901-BYJB SKIN LESIONS, OVER 4 03/09/19 68729-DZSS SKIN LESIONS, OVER 4 09/23/19 20 45048-XIGM SKIN LESIONS, OVER 4 12/28/19 20 91104-IVOR SKIN LESIONS, OVER 4 03/28/19 21 44562-BEXF SKIN LESIONS, OVER 4 06/15/19 17 04564-UOJE SKIN LESIONS, OVER 4 05/04/19 20 08538-AQCM SKIN LESIONS, OVER 4 12/17/19 18 92302-BYCP SKIN LESIONS, OVER 4 11/10/19 25 08170-YQXL SKIN LESIONS, OVER 4 07/09/19 25 04798-YHOY SKIN LESIONS, OVER 4 12/14/19 17 00765-CJEK SKIN LESIONS, OVER 4 07/20/19 16 91320-UYRX SKIN LESIONS, OVER 4 03/17/19 19 56448-RFWY SKIN LESIONS, OVER 4 06/24/19 19 66209-YFZA SKIN LESIONS, OVER 4 08/26/19 19 32269-RAMS SKIN LESIONS, OVER 4 10/28/19 19 76542-VPUG SKIN LESIONS, OVER 4 01/20/20 19 30603-SXWI SKIN LESIONS, OVER 4 10/02/19 18 20245-WJJZ SKIN LESIONS, 2 TO 4 07/11/19 18 10206-OXEH NAIL(S) 07/20/2015 54564-DECRGCCS OF HEMATOMA/FLUID 020 Next Appt Details Provider Name:Kristen Hernandez yoon, 02/08/2025 02:30:00 PM, [address] [facility], [place], [address], Insurance Providers Payer Name Payer Address Payer Phone Subscriber Number Group Number Insured Name Patient Relationship to Insured Coverage Start Date Coverage End Date Medicare [facility] [address] [place] [address] [phone] [id number] Gloria Vela Self - patient is the insured 2 [employer] [address] [place] [address] [id number] Gloria Vela Self - patient is the insured Medical (General) History Medical History History ICD Code Arthritis Cholesterol high blood pressure measles mumps chicken pox Surgical History Surgery Date(Month/Year) appendectomy 1969 cholecystectomy 2009 parathyroidectomy 2009 hysterectomy 2010 bladder surgery 2010 Hospitalization History Reason Date(Month/Year) [facility] ER - fell 6 hrs test done F/L w/PCP on 11/21/2111/2021 [facility]-Eye strok e- multiple ER visits 03/2018 [facility] - migraine 12/14/17 [place] Code disoriented 01/2017
--- OUTSIDE RECORDS SUMMARY | 2024-12-07 16:41 | XMS_ITS | Clinical Summary ---
Author Organization [facility] Address [address] [place] [address] Phone Care Team Providers Care Home Advisor Name Role Phone Unknown, Unknown Primary Care [...] EDT Hospital Encounter [facility] Specimen Processing [address] [place] [address] Audrey Mai MD Discharge Disposition: Home or Self Care 09/23/2024 Transcribe Orders [facility] Specimen Processing [address] [place] [address] Audrey Mai MD Non-bullous impetigo (Primary Dx) [...] Special Requests None 09/23/2024 3:22 PM EDT [facility] GRAM STAIN No WBC seen on smear. Rare GRAM POSITIVE COCCI 09/24/2024 10:50 AM EDT [facility] Wound Culture/Smear MIXED ORGANISMS RESEMBLING CUTANEOUS TRINA(A) 09/25/2024 9:05 AM EDT [facility] Other (Skin) 09/23/2024 1:50 PM EDT 09/23/2024 3:32 PM EDT Comment:LEFT LATERAL SUPERIO R CHEST us Audrey Mai MD MICROBIOLOGY - GENERAL ORDShireen TINOCO Final Result [facility] [address] [place] [address] from Last 3 Months Insurance MEDICARE PART A & B [place] MEDEX SUPPLEMENT MEDICARE PART A & B [employer] MEDEX SUPPLEMENT MEDICARE PART A & B [employer] MEDEX SUPPLEMENT Care Teams Home Advisor Relationship Specialty Start Date End Date Unknown, Unknown, PCP - General 02/21/17 Additional Source Comments The information contained in this document represents components of the legal health record. It is not the complete legal health record.[facility]
== END ==
LOC: HO.CARD 14:06
PROVIDERS: PCP Internal Medicine; Visit Provider Internal Medicine Cardiovascular Disease
DX: I35.0 Nonrheumatic aortic (valve) stenosis (principal)
CPT/HCPCS: 93306

== ENCOUNTER → 2024-12-07 14:09 | Outpatient (BNV) | payer MEDICARE, SELFPAY | PROVIDERS: PCP Internal Medicine; Visit Provider Internal Medicine Cardiovascular Disease | DX: I35.0 Nonrheumatic aortic (valve) stenosis (principal); I34.81 Nonrheumatic mitral (valve) annulus calcification | CPT/HCPCS: 93306 ==

== ENCOUNTER 2025-02-28 16:00 | Inpatient (IN) | payer MEDICARE, SELFPAY ==
--- OUTSIDE RECORDS SUMMARY | 2023-10-28 07:30 | XMS_ITS ---
Author Organization [facility] Address [address] [place] [address] Care Team Providers Care Ranch Supervisor Name Role Phone Bolivar Braden MD Primary Care Provider Kristen Irby Unavailable [phone] Vel Jarrett Unavailable [phone] REASON FOR VISIT Painful nail(s) aggrevated by shoes and causing difficulty standing/walking. Encounters Encounter Location Date Provider Diagnosis [facility] [address] [place] [address] 10/28/2023 Vel Jarrett Unspecified atherosclerosis of [place] arteries of extremities, bilateral legs I70.203 ; Tinea unguium B35.1 ; Xerosis cutis L85.3 ; Pain in right toe(s) M79.674 ; Pain in left toe(s) M79.675 ; Ingrowing nail L60.0 and Lymphedema I89.0 Assessments Encounter Date Diagnosis (ICD Code) Assessment Notes Treatment Notes Treatment Clinical Notes Section Notes 10/28/2023 Unspecified atherosclerosis of [place] arteries of extremities, bilateral legs (ICD-10 - I70.203) 10/28/2023 Tinea unguium (ICD-10 - B35.1) 10/28/2023 Xerosis cutis (ICD-10 - L85.3) 10/28/2023 Pain in right toe(s) (ICD-10 - M79.674) 10/28/2023 Pain in left toe(s) (ICD-10 - M79.675) 10/28/2023 Ingrowing nail (ICD-10 - L60.0) 10/28/2023 Lymphedema (ICD-10 - I89.0) Plan Of Treatment Next Appt Details Follow Up: 3 Months, Reason: Provider Name:Kristen nettles, 03/10/2025 03:45:00 PM, [address] [place], [address], Procedure Notes * Category Sub-Category Detail Notes Debride Nail 6-10 Nail debridement Nail debridem ent performed extensively to reduce/remove overall nail length and girth, subungual debris, and necrotic tissue, by manual and electrical means with use of a nail nipper and/or dremel, to more viable healthy nail plate or bed tissue 6-10. Silver nitrate used for any petechial bleeding as necessary. Patient chooses, no pharmaceutical tx (98800) Keratoma Treatment Parring or Cutting o f Benign Hyperkeratotic Lesion(s) 07254 ( >4 Lesions) - The Benign hyperkeratotic lesions, as described above were pared, and/or cut utilizing a sterile #15 blade, tissue nippers, and/or dremel, Q8 Progress Notes * DANEJyothi Crumplyn TDOB: 7 (89 yo F)Acc No.[id number]:10/28/2023 Progress Note Patient: Gloria DUNCAN Provider: Gabriel Brito DPM :1935 A ge:88 Y S ex:Female Date:10/28/2023 Address:[address] [place], [place] [id number] Pcp:Bolivar Braden MD Subjective: * Chief Complaints: * 1 . Painful nail(s) aggrevated by shoes and causing difficulty standing/walking.. * HPI: P ainful Nails: Pt States Last PCP Visit: D ate: 0 07/03/2023 S kin problems: Nature: d ryness. Location: B /L . Duration: s everal months. Treatments: n a with cream. F oot Pain: Nature: s welling. Location: B /L. Duration: s everal years. Course: w zeeshan. * ROS: G eneral/Constitutional: Nausea d enies. V omiting d enies. H kyler Thirst d enies. L oss appetite d enies. C hills d enies. F atigue d enies.?Fever d enies. N ight Sweats d enies. U nexplained weight loss d enies. U nexplained weight gain d enies. H EENTM: Dentures d enies. D izziness d enies. G lasses/contacts a dmits. R etinopathy d enies. B lurred/double vision d enies. T MJ?denies. D ischarge/drainage d enies. I mplants d enies. S ore throat d enies. D ental implants d enies. H zelda of hearing d enies. D ifficulty chewing/swallowing/speaking d enies. N ose bleeds d enies. S ore mouth d enies. ? R espiratory: On Oxygen d enies. P neumonia/pleurisy d enies.?Bronchitis d enies. E mphysema d enies. C oughing d enies. C ough blood?denies. S hortness of breath d enies. W heezing d enies. C ardiovascular: Pacemaker d enies. M REPAIR ARMATURE WINDER HELPER d enies. W PW d enies. C HF d enies. H eart attack d enies. S eptal defect d enies. R apid beat d enies. C hest pain d enies. A trial Fib. d enies. M urmur/Palpitations d enies. G astrointestinal: Hemorrhoids d enies. S tomach/Abdominal pain d enies. D ark blood stool d enies. I rritable bowel d enies. C onstipation d enies. D iarrhea d enies. H ematology: Swelling d enies. C lots d enies. V aricose Veins d enies. B ruising d enies. B leeding problem d enies. G enitourinary: Blood urine d enies. F requent/Painfu/urination/bladder control d enies. K idney stones d enies. I nfection (UTI) d enies. N ephropathy d enies. s ex trans dis (STD) d enies. P rostate d enies. M usculoskeletal: Hammertoes d enies. B unions d enies. B ack Pain d enies. M uscle Cramps/ Resting d enies. M uscle cramps / walking d enies.?Generalized aches and pains d enies. W eakness d enies. I nteg.: Young d enies. S cars d enies. C orns/calluses?denies. I ngrown nails d enies. P ainful nails d enies. O pen Sores d enies. R ashes d enies. N eurologic: Difficulty sleeping d enies. B rain disorder d enies. N umbness d enies. B alance trouble d enies. C onfusion d enies. F ainting/blackouts d enies. T ingling d enies. T remors d enies. * Medical History: Objective: * Vitals: * Examination: N ails: NAILS are: e longated,overgrown,dystrophic,greater than 3mm thick,discolored and friable with crumbly malodorous subungual debris, with pain on palpation, 1-5 B/L. V ascular: DP PULSES (B): 0/4, B/L. PT PULSES (B): 0/4, B/L. CAPILLARY FILL TIME: delayed, all digits, B/L. TROPHIC CONDITION-TEXTURE/ELASTICITY/TURGOR/HAIR GROWTH (B):? decreased, B/L. PIGMENTATION: rubrous, B/L. EDEMA (C): 3/4, B/L, Feet, Ankle(s), Leg(s). ? D ermatologic: SKIN FINDINGS: Skin exam reveals Keratotic lesion(s) located at, TA, T5, T8, SUB MTH (s), 1, B/L , Skin exam reveals Keratotic lesion(s) located at, Plantar, Heel(s), B/L , Skin shows sign(s) of, dryness, scaling, in a stocking fashion, no fissure(s) present, B/L. G eneral Examination: GENERAL APPEARANCE: R santys a pleasant, alert, well nourished, well developed, well hydrated individual, who demonstrates proper attention to hygene/body habitus, and is in no acute distress. ORIENTED: p erson, place, and time. O rthopedic: MUSCLE STRENGTH: 5 /5 all groups in a symmetrical fashion , B/L. BUNION: Medially prominent 1st MPJ, B/L, Lateral tracking 1st MPJ reducable. Assessment: * Assessment: 1. U nspecified atherosclerosis of [place] arteries of extremities, bilateral legs - I70.203 (Primary) 2 . T inea unguium - B35.1 3 . X erosis cutis - L85.3? 4. P ain in right toe(s) - M79.674 5 . P ain in left toe(s) - M79.675 6 . I ngrowing nail - L60.0 7 . L ymphedema - I89.0 Plan: * Treatment: * Procedures: D ebride Nail 6-10: Nail debridement N ail debridement performed extensively to reduce/remove overall nail length and girth, subungual debris, and necrotic tissue, by manual and electrical means with use of a nail nipper and/or dremel, to more viable healthy nail plate or bed tissue 6-10. Silver nitrate used for any petechial bleeding as necessary. Patient chooses, no pharmaceutical tx ([id number]). K eratoma Treatment: Parring or Cutting of Benign Hyperkeratotic Lesion(s) 1 1057 ( >4 Lesions) - The Benign hyperkeratotic lesions, as described above were pared, and/or cut utilizing a sterile #15 blade, tissue nippers, and/or dremel, Q8. * Procedure Codes: 1 1721 DEBRIDE NAIL, 6 OR MORE, Modifiers: XS , 00303 TRIM SKIN LESIONS, OVER 4, Modifiers: Q8 * Follow Up: 3 Months * Images: * The named appointment provid er may or may not be the originator of this progress note, and it is not deemed complete until electronically signed by the appointment provider. Sign off status: Pending * Provider: Gabriel Brito DPM Date: 0 10/28/2023 Generated for Tristian cochran/Parth/Trent on: 05/01/2024 05:16 PM EST History and Physical Notes * HPI (History of Present Illness) Category Sub-Category Detail Notes Category Not es Painful Nails Pt States Last PCP Visit: Date:: 07/03/2023 Skin problems Nature: dryness Location: B/L Duration: several months Treatments: na with cream Foot Pain Nature: swelling Location: B/L Duration: several years Course: worse Examination Category Sub-Category Detail Notes Category Not es Dermatologic SKIN FINDINGS: Skin exam reveal s Keratotic lesion(s) located at, TA, T5, T8, SUB MTH (s), 1, B/L , Skin exam reveals Keratotic lesion(s) located at, Plantar, Heel(s), B/L , Skin shows sign(s) of, dryness, scaling, in a stocking fashion, no fissure(s) present, B/L Orthopedic BUNION: Medially promine nt 1st MPJ, B/L, Lateral tracking 1st MPJ reducable MUSCLE STRENGTH: 5/5 all groups in a symmetrical fashion , B/L General Examination GENERAL APPEARANCE: Reveals a pleasant, alert, well nourished, well developed, well hydrated individual, who demonstrates proper attention to hygene/body habitus, and is in no acute distress ORIENTED: person, place, and t nick Vascular DP PULSES (B): 0/4, B/L PT PULSES (B): 0/4, B/L CAPILLARY FILL TIME: delayed, all digits , B/L TROPHIC CONDITION-TEXTURE/EL ASTICITY/TURGOR/HAIR GROWTH (B): decreased, B/L EDEMA (C): 3/4, B/L, Feet, Ankl e(s), Leg(s) PIGMENTATION: rubrous, B/L Nails NAILS are: elongated,overgr own,dystrophic,greater than 3mm thick,discolored and friable with crumbly malodorous subungual debris, with pain on palpation, 1-5 B/L
--- OUTSIDE RECORDS SUMMARY | 2025-02-08 09:30 | XMS_ITS ---
Author Organization [facility] Address [address] [facility] [place] [address] Care Team Providers Care Blanket Folder Name Role Phone Bolivar Braden MD Primary Care Provider Kristen Irby Unavailable [phone] Allergies Allergen (clinical drug ingredient) Drug/Non Drug Allergy documented on EMR Reaction Allergy Type Onset Date Status EPINEPHrine Unknown Drug Allergy Activ e Medications Medication SIG (Take, Route, Frequency, Duration) Notes Start Date End Date Status Lasix 20 MG 1 tablet Orally Once a day Not-Taking Prevent Tooth/Gum [place] Not-Taking Keflex 500 MG 1 capsule Orally every 12 hrs; Duration: 7 days 06/19/2016 Not-Taking Atorvastatin Calcium Not-Taking Keflex 500 MG 1 capsule Orally every 12 hrs; Duration: 5 days 07/07/2015 Not-Taking PreviDent Not-Taking hydroCHLOROthiazide Not-Taking Carvedilol 3.125 MG Oral; Duration: 90 Days Active lasix Not-Taking Atenolol 25 MG 1 tablet Orally Once a day; Duration: 30 day(s) Not-Taking Aspir-Low 81 MG 1 tablet Orally Once a day; Duration: 30 day(s) Active Vitamin D 1000 UNIT 1 tablet Orally Once a day; Duration: 30 day(s) Active Rosuvastatin Calcium 5 MG 1 tablet Orally Active Eliquis 5 MG Orally Active Calcium 1200mg 2 tab Once a day Active Zetia 10 MG 1 tablet Orally Once a day; Duration: 30 day(s) Not-Taking Niacin Not-Taking Citracal Calcium+D 600-40-50 0 MG-MG-UNIT as directed Orally Not-Taksilvano biarra Encounters Encounter Location Date Provider Diagnosis [facility] [address] [address] 02/08/2025 Kristen Segovia Plan Of Treatment Next Appt Details Provider Name:Kristen nettles, 03/10/2025 03:45:00 PM, [address] [place] [address], [address], Progress Notes * Ella WHITAKERn TDOB: (89 yo F)Acc No.[id number]:02/08/2025 Progress Note Patient: Gloria DUNCAN Provider: Patrice Segovia DPM :1935 A ge:89 Y S ex:Female Date:02/08/2025 Address:[address] [place], [place] [address] Pcp:Bolivar Braden MD Subjective: * Chief Complaints: * * Medical History: A rthritis, Cholesterol, High blood pressure, Measles, Mumps, Chicken pox. * Medications: T aking Aspir-Low 81 MG Tablet Delayed Release 1 tablet Orally Once a day , Taking Calcium 1200mg 2 tab Once a day , Taking Eliquis 5 MG Tablet Orally , Taking Rosuvastatin Calcium 5 MG Tablet 1 tablet Orally , Taking Vitamin D 1000 UNIT Tablet 1 tablet Orally Once a day , Taking Carvedilol 3.125 MG Tablet Oral , Not- Taking/PRN Atenolol 25 MG Tablet 1 tablet Orally Once a day , Not-Taking/PRN lasix , Not-Taking/PRN hydroCHLOROthiazide , Not-Taking/PRN PreviDent , Not-Taking/PRN Prevent Tooth/Gum [place] , Not-Taking/PRN Lasix 20 MG Tablet 1 tablet Orally Once a day , Not-Taking/PRN Keflex 500 MG Capsule 1 capsule Orally every 12 hrs , Not-Taking/PRN Keflex 500 MG Capsule 1 capsule Orally every 12 hrs , Not- Taking/PRN Atorvastatin Calcium , Not-Taking/PRN Niacin , Not-Taking/PRN Zetia 10 MG Tablet 1 tablet Orally Once a day , Not-Taking/PRN Citracal Calcium+D 600-40-500 MG-MG-UNIT Tablet Extended Release 24 Hour as directed Orally * Allergies: E PINEPHrine. Objective: * Vitals: Assessment: Plan: * Treatment: * Images: * The named appointment provid er may or may not be the originator of this progress note, and it is not deemed complete until electronically signed by the appointment provider. Sign off status: Pending * Provider: Patrice Segovia DPM Date: 04/11/2024 Generated for Tristian cochran/Parth/Trent on: 05/01/2024 05:16 PM EST
[2025-02-28] VITALS (10 sets, daily range): BP systolic 80–148; BP diastolic 35–79; PULSE 71–105; RESP 16–22; TEMP 36.4–39.2; O2SAT 88–98; BMI 39.9
--- NOTE | ~2025-02-28 | CT_ITS ---
CLINICAL HISTORY: AMS --- Additional Notes or Special Instructions: Pt refused - try again later @ 1700- JMR; Pt combative @ 20:40 - JMR CT head without contrast Comparison: None provided Findings: No intra-axial mass, midline shift, hydrocephalus, or acute hemorrhage. Nonspecific white matter hypodensity is present with mild volume loss. Mucous retention cyst in the right maxillary sinus noted. The orbits are within normal limits. No skull fracture. IMPRESSION: 1. No acute intracranial findings. This document has been electronically signed by: Buck Griffith MD, PHD on 03/01/2025 03:36:00
--- NOTE | ~2025-02-28 | CT_ITS ---
EXAMINATION: CT CHEST WITHOUT IV CONTRAST INDICATION: ? CHF COMPARISON: Previous chest x-ray February 28, 2025 TECHNIQUE: Helical CT scan of the chest was performed without intravenous contrast. Coronal and sagittal reformatted images were generated and reviewed. This CT exam was performed with one or more of the following dose reduction techniques: automated exposure control, adjustment of the mA and/or kV according to patient size, use of iterative reconstruction technique. DLP: 203 mGy-cm CHEST: THYROID: The thyroid is unremarkable. LUNGS: No evidence of pulmonary edema. 1.2 x 2 cm groundglass opacity peripheral or subpleural left lung apex. 2 mm peripheral or pleural right upper lobe nodule adjacent to the major fissure axial 207 series 6. Bilateral lower lobe dependent atelectasis or small.. Patchy subsegmental atelectasis in the medial right middle lobe and inferior lingula. MEDIASTINUM: There is no mediastinal lymphadenopathy. CHELI: Evaluation of the hilar regions is limited by lack of intravenous contrast material. CARDIOVASCULATURE: The heart is normal in size. There is significant aortic valve calcification. There is severe mitral annular calcification. Mild coronary artery calcification. There is a small pericardial effusion. The ascending thoracic aorta is slightly dilated measuring 4.3 x 4 cm. The aortic arch and descending thoracic aorta are normal in caliber. The descending thoracic aorta is tortuous. DEGREE OF CORONARY CALCIFICATION: mild PLEURA: Small bilateral pleural effusions, No pneumothorax. MAIN AIRWAYS: The mainstem bronchi and proximal branches are patent. AXILLA: There is no axillary lymphadenopathy. BONES AND SOFT TISSUES: Severe degenerative changes of the spine and shoulders. There may be an old left rib fracture. UPPER ABDOMEN: The visualized portions of the liver, spleen, and adrenals have an unremarkable unenhanced appearance. CT/CT chest wo IV con IMPRESSION: No evidence of pulmonary edema. Dependent atelectasis or small infiltrates in both lower lobes. Small bilateral pleural effusions. 1.2 x 2 cm groundglass opacity in the peripheral or subpleural left upper lobe. Follow-up chest CT in 6-12 months recommended. Significant aortic valve calcification and slightly dilated ascending thoracic aorta. Clinically correlate for aortic stenosis. Small pericardial effusion. Electronically signed by: Frannie Medina MD 03/02/2025 04:38 PM EST
--- NOTE | ~2025-02-28 | XR_ITS ---
CLINICAL HISTORY: right leg hot red swollen. Osteo? 2 view right tibia-fibula Comparison: None provided Findings No fractures or dislocations. No joint effusion. Severe degenerative changes are noted in the knee. No radiopaque foreign body. IMPRESSION: 1. No acute osseous abnormality of the right tibia-fibula This document has been electronically signed by: Buck Griffith MD, PHD on 03/01/2025 03:58:48
--- NOTE | ~2025-02-28 | XR_ITS ---
CLINICAL HISTORY: hypoxia. Aspiration Pneumonia? 1 view chest x-ray Comparison: None provided Findings: Moderate diffuse interstitial prominence in both lungs. No significant pleural effusion or pneumothorax. No focal consolidation. Heart size is normal. No acute fracture. IMPRESSION: 1. Moderate diffuse interstitial prominence in both lungs may represent pulmonary vascular congestion/fluid overload. No focal consolidation. This document has been electronically signed by: Susan Martinez MD on 02/28/2025 19:51:44
[2025-02-28 16:53] LABS: Hematocrit 40.6 % (37.0-47.0); Hemoglobin 13.4 g/dl (12.0-16.0); Imm Gran Abs Auto 0.03 X10*3/uL (0.00-0.03); Imm Gran Pct Auto 0.3 % (0.0-0.4); Lymphocytes Absolute Auto 1.6 X10*3/uL (1.2-4.9); MANUAL DIFF FLAG NO; Mean Corpuscular HGB Conc 33.0 g/dl (31.0-35.0); Mean Corpuscular Hemoglobin 31.0 pg (27.0-33.0); Mean Corpuscular Volume 94.0 fL (80.0-98.0); NRBC Abs Auto 0.000 X10*3/uL (0.0-0.012); NRBC Pct Auto 0.0 /100WBC (0.0-0.2); Platelet Count 231 X10*3/uL (160-400); Red Blood Count 4.32 X10*6/uL (4.20-5.50); White Blood Count 10.2 X10*3/uL (4.8-10.8)
--- NOTE | 2025-02-28 17:04 | ED.GENADULT ---
HPI - General Adult General Chief complaint: Altered Mental Status Stated complaint: AMS Sepsis, significant wounds to leg versed given Time Seen by Provider: 02/28/25 16:35 Source: patient and EMS Mode of arrival: EMS Limitations: no limitations History of Present Illness ED Provider: CAITLIN Danielson HPI narrative: Chief Complaint: ?I?m a little cold ? something going on in my leg.? History of Present Illness: The patient is an 89-year-old female pmhx afib on AC therapy, htn, lbb, aortic stenosis presenting with a complex constellation of acute and chronic symptoms. Her chief complaint is feeling a little cold and experiencing intermittent, gentle burning and soreness localized to the right leg. She reports the acute onset of a small wound on her right foot, which has puffed up and developed small blisters over the past 24 hours, raising concern for early skin and soft tissue infection. On examination, there is significant bilateral lower extremity pitting edema, with chronic-appearing changes on the left leg consistent with her history of intermittent lymphedema episodes occurring every 4-5 days. The left leg is currently asymptomatic, and no open lesions are observed. The patient denies systemic symptoms including nausea, vomiting, diarrhea, cough, and shortness of breath, which reduces the likelihood of systemic infection at this time. She notes a history of blood pressure concerns, though no specific diagnosis or current measurement is available, representing a potential risk factor for vascular compromise. She has taken her morning medications and has additional medications scheduled for the afternoon, indicating adherence to her regimen. The combination of acute right foot wound with blisters, chronic left leg lymphedema, and bilateral pitting edema increases the complexity of her presentation and risk for infection spread. Given these findings, the medical decision-making is high complexity, requiring empiric intravenous antibiotics, a comprehensive diagnostic workup to assess for systemic involvement, and close monitoring for progression or systemic symptoms. The patient's advanced age, comorbidities, and risk factors further justify the need for comprehensive evaluation and management at a high level of service. Related Data Home Medications ?Medication ?Instructions ?Recorded ?Confirmed apixaban 5 mg tablet 5 mg PO BID 09/13/20 03/01/25 aspirin 81 mg tablet,delayed 81 mg PO DAILY 09/13/20 03/01/25 release (Adult Aspirin Regimen) cholecalciferol (vitamin D3) 25 25 mcg PO DAILY 09/13/20 03/01/25 mcg (1,000 unit) capsule rosuvastatin 5 mg tablet 5 mg PO DAILY 09/13/20 03/01/25 calcium carbonate (Calcium 600) 1,200 mg PO BEDTIME 03/01/25 03/01/25 carvedilol 6.25 mg tablet 6.25 mg PO BID 03/01/25 03/01/25 Allergies Allergy/AdvReac Type Severity Reaction Status Date / Time ezetimibe (Zetia) Allergy Unknown muscle Verified 02/28/25 16:24 aches simvastatin AdvReac Unknown myopathy Verified 11/18/21 12:51 statins Allergy Unknown muscle Uncoded 02/28/25 16:24 aches Review of Systems Review of Systems: Yes all other systems are reviewed and are negative [facility] [place] Past Medical History Attestation statement: The following information was validated with the patient. Source: old records reviewed and nursing notes reviewed Medical History HTN (hypertension) Left bundle branch block Paroxysmal atrial fibrillation Surgical History Hx of parathyroidectomy Hx of hysterectomy Hx laparoscopic cholecystectomy Family History Family History Father CVD (cardiovascular disease) Mother CVD (cerebrovascular disease) Social History Social History Alcohol intake: never Patient Tobacco Use Status: Former Tobacco user Physical Exam ED Exam Exam: Appearance: Alert.? Oriented X3.? No acute distress.? Head: Normocephalic, atraumatic, no step-offs or deformities Eyes: Pupils equal, round and reactive to light.? ENT: Pharynx normal.??External ears normal, TMs normal bilaterally and EAC's normal. No pain with manipulation of external ears bilaterally. No mastoid tenderness. Neck: Normal inspection.? Neck supple.? CVS: Normal heart rate and rhythm.? Pulses normal.? Respiratory: No respiratory distress.? Breath sounds normal.? Abdomen: Soft and nontender.? Skin: Skin warm and dry.? Normal skin color.? Normal skin turgor.?+ Right lower extremity with small blisters and a small wounds to right anterior larose. Left lower extremity with chronic-appearing lymphedema changes (per history), no open lesions observed during exam. Extremities: 3+ pitting edema from the knee down to the toes b/l L>R ? No calf ttp. 5/5 strength to bilateral upper and lower extremities Back: No midline tenderness, no C-spine tenderness, full range of motion, no CVA tenderness bilaterally Neuro: Oriented X 3.? No motor deficit.? No sensory deficit. CN 2-12 intact Vital Signs: Vital Signs - 24 hr 02/28/25 22:04 02/28/25 22:07 02/28/25 23:53 Temperature 101.3 F H 100.2 F Pulse Rate 71 91 Respiratory Rate 16 20 Blood Pressure 86/44 L 103/49 L 131/64 Pulse Oximetry 98 94 Oxygen Delivery Method Nasal Cannula Nasal Cannula Oxygen Flow Rate 3 3 03/01/25 01:07 03/01/25 02:39 03/01/25 04:10 Temperature 99.1 F 98.4 F Pulse Rate 70 58 Respiratory Rate 16 16 Blood Pressure 90/34 L 103/47 L 116/49 L Pulse Oximetry 98 95 Oxygen Delivery Method Oxymask Oxymask Oxygen Flow Rate 3 2 03/01/25 04:32 Temperature 98.4 F Pulse Rate 58 Respiratory Rate 16 Blood Pressure 113/62 Pulse Oximetry 97 Oxygen Delivery Method Nasal Cannula Oxygen Flow Rate 2 BMI result Body Mass Index 39.9 Course Reevaluation(s) Reevaluation #1: I was also just inform that patient got IM Versed prior to arrival as she was agitated patient initially stated she did not know why she was in the hospital according to her spouse and EMS patient was agitated and confused. I added a urine as well as head CT. Time: 17:18 Reevaluation #2: Sign out to my collegue CAITLIN Parker Time: 17:52 Reevaluation #3: Patient right leg is definitely warm hot and erythematous. Patient was given another Versed and Haldol due to her being aggressive and not allowing staff to get labs and urine. Patient now febrile and blood pressure dropping. Case was discussed with hospitalist Dr. Chamorro recommend fluids and added vancomycin. X-ray negative pneumonia. Signed out to Candice Time: 22:00 Additional Reevaluation(s): 2341 pm I Vashti Ridley PA-C have accepted care of the patient at signed out pending imaging, labs and admission. CT scan of the head has been ordered, not yet obtained secondary to the patient's agitation. The patient is complaining of pain, back pain, we will give some morphine, having to give intramuscular Zyprexa for her agitation. Her behaviors beginning to escalate, she is attempting to climb out of bed, she is not safe. 1229 am patient is still complains of pain, giving Valium 5 mg After the Valium, the patient's pressures dropped again, she did receive morphine Valium and Zyprexa, secondary to her agitation, so we could scan her head. She yelled throughout the entire study. She is also on oxygen because she is mouth breathing. When she is awake and moving and yelling, her pressures were normal she is not hypoxic. 257 am 3rd troponin resulting at 117.2, it is gradually elevating. The 1st was 37.1, the 2nd 67.8, it is now coming to my attention that when initial troponin was ordered an EKG was never ordered, we are obtaining 1 now EKG reveals normal sinus rhythm with a rate of 62, old left bundle branch block again appreciated no ischemic changes QTC 483. When compared to old study from 2021 there is no change this is reassuring. We will initiate treatment for NSTEMI at this time. Collecting PT INR and starting heparin, we will be admitting the patient. She needed an ultrasound-guided IV, the patient had to be medicated, I am giving analgesia based ketamine dosing at 0.3 milligrams/kilogram, for a total of [address] scan of the brain Comparison: None provided Findings: No intra-axial mass, midline shift, hydrocephalus, or acute hemorrhage. Nonspecific white matter hypodensity is present with mild volume loss. Mucous retention cyst in the right maxillary sinus noted. The orbits are within normal limits. No skull fracture. IMPRESSION: 1. No acute intracranial findings. Medications Administered Generic Name Dose Route Start Last Admin Trade Name Freq PRN Reason Stop Dose Admin Furosemide 40 mg 03/01/25 18:00 03/01/25 18:13 Furosemide 40 Mg/4 Ml Vial IVPUSH 40 mg BID@0900,1800 [facility] Administration Protocol Lactated Ringer's 1,000 mls @ 70 mls/hr 03/01/25 05:45 03/01/25 09:13 Lr IVCONT Infused On Hold: 03/01/25 06:30 .[id number] MONICA Infusion Piperacillin Sod/Tazobactam 100 mls @ 200 mls/hr 03/01/25 06:00 03/01/25 19:00 Sod 4.5 gm/ Sodium Chloride IV Infused Q6H MONICA Infusion Sodium Chloride 3 ml 03/01/25 08:00 03/01/25 16:43 0.9 % Sodium Chloride Flush 3 Ml Syringe IVFLUSH 3 ml QSHIFT MONICA Administration Discontinued Medications Generic Name Dose Route Start Last Admin Trade Name Freq PRN Reason Stop Dose Admin Diazepam 5 mg 03/01/25 00:23 03/01/25 00:28 Diazepam 10 Mg/2 Ml Cartridge IVPUSH 03/01/25 00:24 5 mg STAT STA Administration Haloperidol Lactate 5 mg 02/28/25 19:56 02/28/25 20:05 Haloperidol Lactate 5 Mg/Ml Vial IM 02/28/25 19:57 5 mg STAT STA Administration Heparin Sodium (Porcine) 4,000 unit 03/01/25 04:09 03/01/25 04:34 Heparin Sodium,Porcine 5,000 Unit/Ml Vial IVPUSH 03/01/25 04:10 4,000 unit ONCE ONE Administration Piperacillin Sod/Tazobactam 50 mls @ 100 mls/hr 02/28/25 16:23 02/28/25 17:33 Sod 3.375 gm/ Sodium Chloride IV 02/28/25 16:52 Infused ONCE ONE Infusion Acetaminophen 1,000 mg in 100 mls @ 400 mls/hr 02/28/25 20:45 02/28/25 21:57 Ofirmev IV 02/28/25 20:59 Infused ONCE ONE Infusion Vancomycin HCl 2,000 mg in 500 mls @ 250 mls/hr 02/28/25 21:34 03/01/25 00:15 Vancomycin/Ns IV 02/28/25 23:33 Infused ONCE ONE Infusion Sodium Chloride 1,000 mls @ 999 mls/hr 02/28/25 21:38 02/28/25 23:28 Ns IV 02/28/25 22:38 Infused .Q1H1M STA Infusion Lactated Ringer's 1,000 mls @ 999 mls/hr 03/01/25 00:45 03/01/25 03:02 Lr IV 03/01/25 01:45 Infused .Q1H1M MONICA Infusion Heparin Sodium/Sodium Chloride 25,000 unit in 250 mls @ 0 mls/hr 03/01/25 04:15 03/01/25 10:51 Heparin Sodium,Porcine/1/2ns IVCONT Infused .Q0M MONICA Titration Protocol Per Protocol Furosemide 200 mg/ Sodium 100 mls @ 1 mls/hr 03/01/25 06:30 03/01/25 14:58 Chloride IVCONT Infused .Q24H MONICA Infusion 2 MG/HR Ketamine HCl 30 mg 03/01/25 04:09 03/01/25 03:56 Ketamine Hcl/Ns 50 Mg/5 Ml Syringe IVPUSH 03/01/25 04:10 30 mg ONCE ONE Administration Midazolam HCl 2 mg 02/28/25 19:57 02/28/25 20:05 Midazolam Hcl 2 Mg/2 Ml Vial IVPUSH 02/28/25 19:58 2 mg ONCE ONE Administration Morphine Sulfate 4 mg 02/28/25 23:41 02/28/25 23:49 Morphine Sulfate 4 Mg/Ml Cartridge IVPUSH 02/28/25 23:42 4 mg ONCE ONE Administration Protocol Olanzapine 10 mg 02/28/25 23:41 02/28/25 23:49 Olanzapine 10 Mg Vial IM 02/28/25 23:42 10 mg ONCE ONE Administration Medical Decision Making Medical Decision Making MDM Narrative: Assessment & Plan Patient presents with a small right-foot wound, bilateral lower-extremity pitting edema, and intermittent burning pain of the right leg. Bedside exam is concerning for early skin/soft-tissue infection of the right lower extremity in the setting of chronic edema and possible lymphedema. The patient's advanced age, chronic lymphedema, and bilateral pitting edema increase her risk for rapid infection spread and systemic involvement, necessitating high-complexity medical decision-making. Problem #1: Likely right lower-extremity skin/soft-tissue infection Assessment: The patient has a small right-anterior larose wound present for less than 24 hours, with surrounding swelling and small blisters. Bilateral pitting edema and chronic lymphedema increase the risk for infection spread and complicate management. The absence of systemic symptoms at presentation is reassuring, but close monitoring is required due to her risk profile. Plan: Initiate empiric intravenous antibiotics to address possible early skin/soft-tissue infection and prevent progression to systemic involvement. Obtain baseline laboratory studies (CBC, metabolic panel, inflammatory markers) to assess for systemic infection and guide further management. Monitor closely for signs of progression or systemic infection, given the patient's age and comorbidities. Problem #2: Bilateral lower-extremity edema / possible lymphedema (left > right) Assessment: Chronic intermittent left-leg lymphedema by history; exam notable for bilateral pitting edema. The chronicity and recurrence of lymphedema episodes every 4-5 days increase the risk for complications and infection. Plan: Order further diagnostic work-up (labs and additional tests) to evaluate underlying etiology of edema and lymphedema, including vascular studies if indicated. Continue close monitoring while inpatient; consider vascular/lymphedema consultation to optimize management and prevent further complications. Disposition and follow-up to be determined based on laboratory and clinical findings. The patient's presentation, risk factors, and need for comprehensive evaluation and multidisciplinary management support a high level of service and justify high-complexity care. Differential Diagnosis Differential Diagnoses: The differential diagnosis associated with the presentation includes Differential Diagnosis The following differential diagnosis is considered for the patient's acute right foot wound with blisters, bilateral lower extremity pitting edema, and intermittent burning pain: Cellulitis: Acute onset of right foot wound with swelling and blisters, in the setting of chronic edema, is highly suggestive of early skin and soft tissue infection. Advanced age and chronic lymphedema increase susceptibility. Erysipelas: Rapidly developing erythema and swelling, especially in elderly patients with chronic edema, may represent superficial streptococcal infection. The presence of blisters supports consideration. Bullous Pemphigoid: The presence of blisters on the right foot raises the possibility of an autoimmune blistering disorder, particularly in older adults. However, the acute wound and associated edema make infection more likely. Venous Stasis Dermatitis: Chronic bilateral pitting edema and intermittent lymphedema episodes suggest underlying venous insufficiency, which can predispose to dermatitis and skin breakdown. Acute on Chronic Lymphedema: History of recurrent left leg lymphedema and current bilateral edema may contribute to impaired lymphatic drainage, increasing risk for infection and delayed wound healing. Deep Vein Thrombosis (DVT): Bilateral pitting edema and acute right foot symptoms warrant consideration of DVT, although the absence of calf tenderness and systemic symptoms makes this less likely. Arterial Insufficiency: Advanced age and history of blood pressure concerns are risk factors for peripheral arterial disease, which can present with wounds and delayed healing, though pulses and ischemic changes were not documented. Contact Dermatitis: Acute wound and blisters could be due to local irritant or allergic reaction, though no clear exposure history was elicited. Drug Reaction: Blistering and skin changes may rarely be due to medication reaction; however, the patient reports no new medications and only takes occasional vitamins. Systemic Causes (Heart Failure, Renal Insufficiency, Autoimmune Disease): Bilateral pitting edema in an elderly patient may reflect underlying cardiac, renal, or autoimmune pathology. The absence of dyspnea, chest pain, and GI symptoms makes heart failure and renal insufficiency less likely, but these should be considered in the workup. Admission/Observation Consideration of admission/observation: Escalation of care including admission/observation considered Lab Data MDM Lab Attestation statement: I reviewed the patient's lab results. 03/01/25 10:18 03/01/25 10:18 Labs: Lab Results 02/28/25 02/28/25 02/28/25 Range/Units 16:45 20:34 20:47 WBC 10.2 (4.8-10.8) X10*3/uL RBC 4.32 (4.20-5.50) X10*6/uL Hgb 13.4 (12.0-16.0) g/dl Hct 40.6 (37.0-47.0) % MCV 94.0 (80.0-98.0) fL MCH 31.0 (27.0-33.0) pg MCHC 33.0 (31.0-35.0) g/dl RDW 13.2 (11.0-16.0) % Plt Count 231 (160-400) X10*3/uL MPV 10.5 (9.4-12.3) fL Immature Gran % (Auto) 0.3 (0.0-0.4) % Neut % (Auto) 73.8 H (45-73) % Lymph % (Auto) 15.5 L (20-40) % [place] % (Auto) 7.1 (2-11) % Eos % (Auto) 2.7 (0-4) % Baso % (Auto) 0.6 (0-2) % Lymph # (Auto) 1.6 (1.2-4.9) X10*3/uL [place] # (Auto) 0.7 (0.1-1.2) X10*3/uL Eos # (Auto) 0.3 (0.0-0.4) X10*3/uL Baso # (Auto) 0.1 (0.0-0.2) X10*3/uL Abs Immat Gran (auto) 0.03 (0.00-0.03) X10*3/uL Absolute Neuts (auto) 7.5 (2.0-8.3) x10*3/uL Absolute Nucleated RBC 0.000 (0.0-0.012) X10*3/uL Nucleated RBC % (auto) 0.0 (0.0-0.2) /100WBC ESR 24 (1-30) MM/HR Hold Purple Top SEE NOTE PT (11.2-13.5) SEC INR (0.9-1.1) Sodium 139 (135-145) mmol/L Potassium 4.3 (3.3-5.1) mmol/L Chloride 104 (96-108) mmol/L Carbon Dioxide 27 (22-29) mmol/L Anion Gap 12 (12-20) BUN 17 H (9-16) mg/dL Creatinine 0.84 (0.5-1.4) mg/dL Estim Creat Clear Calc 48.9 Estimated GFR > 60 Random Glucose 110 (60-115) mg/dL Lactic Acid 1.5 (0.5-2.0) mmol/L Calcium 9.7 (8.4-10.2) mg/dL Magnesium 2.1 (1.6-2.6) mg/dL Total Bilirubin 0.8 (0.0-1.0) mg/dL AST 18 (5-31) U/L ALT 11 (0-31) U/L Alkaline Phosphatase 88 (39-117) U/L Ammonia (13-55) umol/L Troponin I High Sens 37.1 H 67.8 H* D (<3.5-17.0) ng/L C-Reactive Protein 3.26 H (< or = 0.50) mg/dL NT-Pro-B Natriuret Pep 1315.6 H 2497.2 H (<300) pg/mL Total Protein 7.4 (6.5-8.0) g/dL Albumin 4.4 (3.5-5.0) g/dL Urine Color Yellow Urine Appearance Clear Urine pH 7.0 (5.0-9.0) Ur Specific [place] 1.020 (1.005-1.025) Urine Protein Negative (Neg-Trace) mg/dL Urine Glucose (UA) Negative (Negative) mg/dL Urine Ketones Negative (Negative) mg/dL Urine Blood Negative (Negative) Urine Nitrite Negative (Negative) Ur Leukocyte Esterase Negative (Negative) Influenza Type A (PCR) (Negative) Influenza Type B (PCR) (Negative) RSV RNA Qual (PCR) (Negative) SARS-CoV-2 RNA (RT-PCR) (Negative) 02/28/25 02/28/25 03/01/25 Range/Units 21:23 23:48 02:57 WBC (4.8-10.8) X10*3/uL RBC (4.20-5.50) X10*6/uL Hgb (12.0-16.0) g/dl Hct (37.0-47.0) % MCV (80.0-98.0) fL MCH (27.0-33.0) pg MCHC (31.0-35.0) g/dl RDW (11.0-16.0) % Plt Count (160-400) X10*3/uL MPV (9.4-12.3) fL Immature Gran % (Auto) (0.0-0.4) % Neut % (Auto) (45-73) % Lymph % (Auto) (20-40) % [place] % (Auto) (2-11) % Eos % (Auto) (0-4) % Baso % (Auto) (0-2) % Lymph # (Auto) (1.2-4.9) X10*3/uL [place] # (Auto) (0.1-1.2) X10*3/uL Eos # (Auto) (0.0-0.4) X10*3/uL Baso # (Auto) (0.0-0.2) X10*3/uL Abs Immat Gran (auto) (0.00-0.03) X10*3/uL Absolute Neuts (auto) (2.0-8.3) x10*3/uL Absolute Nucleated RBC (0.0-0.012) X10*3/uL Nucleated RBC % (auto) (0.0-0.2) /100WBC ESR (1-30) MM/HR Hold Purple Top PT (11.2-13.5) SEC INR (0.9-1.1) Sodium (135-145) mmol/L Potassium (3.3-5.1) mmol/L Chloride (96-108) mmol/L Carbon Dioxide (22-29) mmol/L Anion Gap (12-20) BUN (9-16) mg/dL Creatinine (0.5-1.4) mg/dL Estim Creat Clear Calc Estimated GFR Random Glucose (60-115) mg/dL Lactic Acid (0.5-2.0) mmol/L Calcium (8.4-10.2) mg/dL Magnesium (1.6-2.6) mg/dL Total Bilirubin (0.0-1.0) mg/dL AST (5-31) U/L ALT (0-31) U/L Alkaline Phosphatase (39-117) U/L Ammonia 42 (13-55) umol/L Troponin I High Sens 117.2 H* D (<3.5-17.0) ng/L C-Reactive Protein (< or = 0.50) mg/dL NT-Pro-B Natriuret Pep (<300) pg/mL Total Protein (6.5-8.0) g/dL Albumin (3.5-5.0) g/dL Urine Color Urine Appearance Urine pH (5.0-9.0) Ur Specific [place] (1.005-1.025) Urine Protein (Neg-Trace) mg/dL Urine Glucose (UA) (Negative) mg/dL Urine Ketones (Negative) mg/dL Urine Blood (Negative) Urine Nitrite (Negative) Ur Leukocyte Esterase (Negative) Influenza Type A (PCR) NEGATIVE (Negative) Influenza Type B (PCR) NEGATIVE (Negative) RSV RNA Qual (PCR) NEGATIVE (Negative) SARS-CoV-2 RNA (RT-PCR) NEGATIVE (Negative) 03/01/25 Range/Units 04:14 WBC (4.8-10.8) X10*3/uL RBC (4.20-5.50) X10*6/uL Hgb (12.0-16.0) g/dl Hct (37.0-47.0) % MCV (80.0-98.0) fL MCH (27.0-33.0) pg MCHC (31.0-35.0) g/dl RDW (11.0-16.0) % Plt Count (160-400) X10*3/uL MPV (9.4-12.3) fL Immature Gran % (Auto) (0.0-0.4) % Neut % (Auto) (45-73) % Lymph % (Auto) (20-40) % [place] % (Auto) (2-11) % Eos % (Auto) (0-4) % Baso % (Auto) (0-2) % Lymph # (Auto) (1.2-4.9) X10*3/uL [place] # (Auto) (0.1-1.2) X10*3/uL Eos # (Auto) (0.0-0.4) X10*3/uL Baso # (Auto) (0.0-0.2) X10*3/uL Abs Immat Gran (auto) (0.00-0.03) X10*3/uL Absolute Neuts (auto) (2.0-8.3) x10*3/uL Absolute Nucleated RBC (0.0-0.012) X10*3/uL Nucleated RBC % (auto) (0.0-0.2) /100WBC ESR (1-30) MM/HR Hold Purple Top PT 17.4 H (11.2-13.5) SEC INR 1.4 H (0.9-1.1) Sodium (135-145) mmol/L Potassium (3.3-5.1) mmol/L Chloride (96-108) mmol/L Carbon Dioxide (22-29) mmol/L Anion Gap (12-20) BUN (9-16) mg/dL Creatinine (0.5-1.4) mg/dL Estim Creat Clear Calc Estimated GFR Random Glucose (60-115) mg/dL Lactic Acid (0.5-2.0) mmol/L Calcium (8.4-10.2) mg/dL Magnesium (1.6-2.6) mg/dL Total Bilirubin (0.0-1.0) mg/dL AST (5-31) U/L ALT (0-31) U/L Alkaline Phosphatase (39-117) U/L Ammonia (13-55) umol/L Troponin I High Sens (<3.5-17.0) ng/L C-Reactive Protein (< or = 0.50) mg/dL NT-Pro-B Natriuret Pep (<300) pg/mL Total Protein (6.5-8.0) g/dL Albumin (3.5-5.0) g/dL Urine Color Urine Appearance Urine pH (5.0-9.0) Ur Specific [place] (1.005-1.025) Urine Protein (Neg-Trace) mg/dL Urine Glucose (UA) (Negative) mg/dL Urine Ketones (Negative) mg/dL Urine Blood (Negative) Urine Nitrite (Negative) Ur Leukocyte Esterase (Negative) Influenza Type A (PCR) (Negative) Influenza Type B (PCR) (Negative) RSV RNA Qual (PCR) (Negative) SARS-CoV-2 RNA (RT-PCR) (Negative) Independent Historian Clinical information obtained from an independent historian. History obtained from or confirmed by: EMS External Record Review External record reviewed: Inpatient record, Office record, Outpatient record, Prior outpatient labs, Prior outpatient radiology, Primary care record and Outside ED record Prescription Management I considered prescription management with: Antibiotic Chronic Conditions Patient?s care impacted by: Other (see hpi ) Critical Care Time Critical Care Time Critical Care Time: Yes Total Critical Care Time: 35 Attestation: I attest to this time spent taking care of the patient, obtaining history, physical, reviewing labs, imaging, treatment of patients condition +/- specialist/hospitalist consult +/- procedure I Vashti Ridley PA-C have personally performed 35 minutes of critical care time, in addition to the prior provider, not including lines and procedures; NSTEMI Discharge Plan Discharge Clinical Impression: Cellulitis of right leg, Lymphedema, Non-ST elevation [place] (NSTEMI) Change in mental status Qualifiers: Altered mental status type: unspecified Qualified Code(s): R41.82 - Altered mental status, unspecified Sepsis Qualifiers: Sepsis type: sepsis due to unspecified organism Sepsis acute organ dysfunction status: without acute organ dysfunction Qualified Code(s): A41.9 - Sepsis, unspecified organism Patient Disposition: Admitted As Inpatient Interventions: Admission Worksheet (ED) Last Done: 03/01/25 20:21 Discharge Date/Time: 03/01/25 21:21
[2025-02-28 17:08] LABS: Alanine Aminotransferase 11 U/L (0-31); Albumin Level 4.4 g/dL (3.5-5.0); Alkaline Phosphatase 88 U/L (39-117); Anion Gap 12 (12-20); Aspartate Amino Transferase 18 U/L (5-31); Blood Urea Nitrogen 17 mg/dL (9-16); Calcium 9.7 mg/dL (8.4-10.2); Carbon Dioxide 27 mmol/L (22-29); Chloride 104 mmol/L (96-108); Creatinine Clr Calc Pharmacy 48.9; Estimated Glomerular Filt Rate > 60; Magnesium 2.1 mg/dL (1.6-2.6); Potassium 4.3 mmol/L (3.3-5.1); Sodium 139 mmol/L (135-145); Total Protein 7.4 g/dL (6.5-8.0)
--- OUTSIDE RECORDS SUMMARY | 2025-02-28 17:16 | XMS_ITS | Patient Health Record ---
Author Organization [facility] Address [address] [place] [address] Care Team Providers Care Cook Helper Preserves Name Role Phone Bolivar Braden MD Primary Care Provider Julian Zelaya [phone] Allergies Allergen (clinical drug ingredient) Drug/Non Drug Allergy documented on EMR Reaction Allergy Type Onset Date Status EPINEPHrine Unknown Drug Allergy Activ e Reason For Referral No Information Medications Medication SIG (Take, Route, Fr equency, Duration) Notes Start Date End Date Status atenolol 25 MG TABLET 1 TABLET Oral ONCE A DAY Active Eliquis 5 MG Tablet 1 tablet Orally once a day Active Immunizations Vaccine Route Administration Date Status Comme nts Flu vaccine no Preserv 3 and > Unknown 12/02/2014 Admin istered Flu vaccine no Preserv 3 and > Unknown 11/05/2016 Admin istered Social History Social History Additional Details Category Social Info Options Details Miscellaneous: Marital status: 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 Section Notes: Does not smoke Drinks only r oliver Does not smoke; drinks only rarely Does not smoke; drinks only rarely Problems Problem Type SNOMED Code ICD Code Onset Dates Problem Status W/U Status Risk Notes Problem Screening for malignant neoplasm of colon (542542687) Encounter for screening for malignant neoplasm of colon (Z12.11) Active confirmed Problem Irritable bowel syndrome with diarrhea (480777154) 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) Active confirmed Problem Nausea (546015051) Nausea (R11.0) Active confirmed Problem Screening for malignant neoplasm of rectum (232914812) Encounter for screening for malignant neoplasm of rectum (Z12.12) Active confirmed Plan Of Treatment Future Test Test Name Order Date COLONOSCOPY 03/25/2015 Insurance Providers Payer Name Payer Address Payer Phone Subscriber Number Group Number Insured Name Patient Relationship to Insured Coverage Start Date Coverage End Date MEDICARE [place] [address] [place] [address] [phone] [id number] MELO WHITAKER Self - patient is the insured [employer] ATT[employer] CLAIMS [address] [place] [address] [id number] MELO WHITAKER Self - patient is the insured Medical (General) History Medical History History ICD Code HTN Low Vitamin D Arthritis Colon polyps--tubular adenom a removed in 2001,and only a hyperplastic polyp removed in 2007 Urinary incontinence Left bundle branch block (LBBB) Denies DE,DM,CVA,Lung disease,renal dise ase Colonoscopy in 06/2015--1 sma ll tubular adenoma, diverticulosis, internal hemorrhoids Mild IBS with loose stools-- pallavi. in restaurants--neg. labs for celiac disease in 2016 Atrial fibrillation--started on Eliquis 06/2017 Surgical History Surgery Date(Month/Year) APPENDECTOMY CHOLECYSTECTOMY NARDA with a bladder suspension in approx. 2011
--- OUTSIDE RECORDS SUMMARY | 2025-02-28 17:16 | XMS_ITS | Clinical Summary ---
Author Organization [facility] Address [address] [place] [address] Care Team Providers Care Language Specialist Name Role Phone Bolivar Braden Primary Care Provider [phone] Medications No known medications Active Problems Problem [...] Screening 03/04/2024 Depression Screening and Follow-Up 03/04/2024 Fall Risk Screening 03/04/2024 Health Care Proxy Review 03/04/2024 Social Drivers of Health Annual Screening 03/04/2024 Influenza Vaccine (#1) 2024 , 01/11/2023, 11/23/2021, Additional history exists COVID-19 Vaccine (2024- season) 2024 12/15/2022, 08/01/2022, 12/10/2021, Additional history exists DTaP,Tdap,and Td Vaccines (2 - Tdap) 03/13/2027 03/13/2017 Zoster Vaccines Completed 03/26/2020, 01/02, 06/12/2015 Pneumococcal Vaccine: 50+ Years Completed 08/28/2022, 03/13/2017, 11/10/2015 RSV Vaccine (60+ years old and patients) Completed 05/18/2023 Hepatitis B Vaccines Aged Out No long er eligible based on patient's age to complete this topic Insurance [facility] MEDICARE Care Teams Language Specialist Relationship Specialty Start Date End Date Bolivar Braden [address] [place] [id number] PCP - General Internal Medicine 12/25/23
--- OUTSIDE RECORDS SUMMARY | 2025-02-28 17:16 | XMS_ITS | Clinical Summary ---
Author Organization [facility] Address [address] [place] [address] Care Team Providers Care Store Grocery Merchandiser Name Role Phone Unavailable Primary Care Provider [...] Depression Screening 03/04/2024 COVID-19 Vaccine (1 - 2024-2 6 season) 2024 Influenza Vaccine (#1) 2024 HIB [...]
--- OUTSIDE RECORDS SUMMARY | 2025-02-28 17:17 | XMS_ITS | Patient Health Record ---
[facility] Address [address] [place] [address] Care Team Providers Care Supervisor Grower Name Role Phone Bolivar Braden MD Primary Care Provider Kristen Irby [phone] Allergies Allergen (clinical drug ingredient) Drug/Non Drug Allergy documented on EMR Reaction Allergy Type Onset Date Status EPINEPHrine Unknown Drug Allergy Activ e Reason For Referral No Information Medications Medication SIG (Take, Route, Frequency, Duration) Notes Start Date End Date Status Keflex 500 MG 1 capsule Orally every 12 hrs; Duration: 7 days 06/19/2016 Not-Taking Rosuvastatin Calcium 5 MG 1 tablet Orally Active Atorvastatin Calcium Not-Taking Eliquis 5 MG Orally Active Keflex 500 MG 1 capsule Orally every 12 hrs; Duration: 5 days 07/07/2015 Not-Taking PreviDent Not-Taking hydroCHLOROthiazide Not-Taking Aspir-Low 81 MG 1 tablet Orally Once a day; Duration: 30 day(s) Active Lasix 20 MG 1 tablet Orally Once a day Not-Taking Prevent Tooth/Gum Ruby Not-Taking Carvedilol 3.125 MG Oral; Duration: 90 Days Active Zetia 10 MG 1 tablet Orally Once a day; Duration: 30 day(s) Not-Taking Vitamin D 1000 UNIT 1 tablet Orally Once a day; Duration: 30 day(s) Active Niacin Not-Taking lasix Not-Taking Atenolol 25 MG 1 tablet Orally Once a day; Duration: 30 day(s) Not-Taking Citracal Calcium+D 600-40-50 0 MG-MG-UNIT as directed Orally Not-Takin g Calcium 1200mg 2 tab Once a day Active Immunizations Vaccine Route Administration [...] Status W/U Status Risk Notes Problem Lymphedema (97728914) Lymphedema (I89.0) Active confirmed Problem Bilateral atherosclerosis of arteries of lower limbs (disorder) (85069225558290345 ) Atherosclerosis of [place] artery of both lower extremities, with unspecified presence of clinical manifestation (I70.203) Active confirmed Q7(A), Q8(2B), Q9(1B,2 C) Vital Signs Blood pressure diastolic 60 mm Hg 11/09/2024 Height 5 ft 3 in in 11/09/2024 Blood pressure systolic 135 mm Hg 11/09/2024 Weight 207 lbs 11/09/2024 BMI 36.66 kg/m2 11/09/2024 Procedures Procedure Date Ordered Date Performed Result Body Sit e 05798-KMXAQUE NAIL, 6 OR MORE 03/09/2024 N/A 03958-PPOB SKIN LESIONS, OVER 4 03/09/2024 N/A 48104-WZAOVSE NAIL, 6 OR MORE 07/08/2024 N/A 43083-PHVK SKIN LESIONS, OVER 4 07/08/2024 N/A 96831-APSTLKA NAIL, 6 OR MORE 11/09/2024 N/A 18772-DRCE SKIN LESIONS, OVER 4 11/09/2024 N/A Encounters Encounter Location Date Provider Diagnosis [facility] [place] [address] 03/09/2024 Kristen Segovia Atherosclerosis of [place] artery of both lower extremities, with unspecified presence of clinical manifestation I70.203 ; Tinea unguium B35.1 ; Pain in right toe(s) M79.674 ; Pain in left toe(s) M79.675 and Lymphedema I89.[address] [address] 07/08/2024 Kristen Segovia Atherosclerosis of [place] artery of both lower extremities, with unspecified presence of clinical manifestation I70.203 ; Tinea unguium B35.1 ; Pain in right toe(s) M79.674 ; Pain in left toe(s) M79.675 and Lymphedema I89.[address] [address] 11/09/2024 Kristen Segovia Atherosclerosis of [place] artery of both lower extremities, with unspecified presence of clinical manifestation I70.203 ; Tinea unguium B35.1 ; Pain in right toe(s) M79.674 ; Pain in left toe(s) M79.675 and Lymphedema I89.[address] [address] 03/09/2024 Kristen Segovia [facility] [address] [address] 02/08/2025 Kristen Segovia Assessments Encounter Date Diagnosis (ICD Code) Assessment Notes Treatment Notes Treatment Clinical Notes Section Notes 03/09/2024 Atherosclerosis of [place] artery of both lower extremities, with unspecified presence of clinical manifestation (ICD-10 - I70.203) Q7(A), Q8(2B), Q9(1B,2C) 07/08/2024 Atherosclerosis of [place] artery of both lower extremities, with unspecified presence of clinical manifestation (ICD-10 - I70.203) Q7(A), Q8(2B), Q9(1B,2C) 11/09/2024 Atherosclerosis of [place] artery of both lower extremities, with unspecified presence of clinical manifestation (ICD-10 - I70.203) Q7(A), Q8(2B), Q9(1B,2C) 11/09/2024 Tinea unguium (ICD-10 - B35.1) 07/08/2024 Tinea unguium (ICD-10 - B35.1) 03/09/2024 Tinea unguium (ICD-10 - B35.1) 03/09/2024 Pain in right toe(s) (ICD-10 - M79.674) 07/08/2024 Pain in right toe(s) (ICD-10 - M79.674) 11/09/2024 Pain in right toe(s) (ICD-10 - M79.674) 11/09/2024 Pain in left toe(s) (ICD-10 - M79.675) 07/08/2024 Pain in left toe(s) (ICD-10 - M79.675) 03/09/2024 Pain in left toe(s) (ICD-10 - M79.675) 03/09/2024 Lymphedema (ICD-10 - I89.0) 07/08/2024 Lymphedema (ICD-10 - I89.0) 11/09/2024 Lymphedema (ICD-10 - I89.0) Plan Of Treatment Pending Test Test Name Order Date 65433-ICOZDLA NAIL, 6 OR MORE 01/11/2016 70422-MFDZIGD NAIL, 6 OR MORE 04/11/2016 34938-ZHWYLWV NAIL, 6 OR MORE 06/14/2016 15015-NNAEBBF NAIL, 6 OR MORE 12/13/2016 66144-UUOLQTS NAIL, 6 OR MORE 07/10/2017 10569-PSBQRVO NAIL, 6 OR MORE 10/01/2017 64341-UQSSHZF NAIL, 6 OR MORE 12/16/2017 55217-LWDZDJF NAIL, 6 OR MORE 03/09/2024 83772-AJAZKIA NAIL, 6 OR MORE 07/08/2024 74348-SDEKMYQ NAIL, 6 OR MORE 11/09/2024 11530-FJAXIKM NAIL, 1-5 12/20/2011 21580-UCVGFSB NAIL, 1-5 05/07/2012 05332-Ncioclqb Plate 05/07/2012 12244-Swmijihu Plate 07/07/2015 57304-Fqdmgcpu Plate 06/14/2016 31687- Debride <25 sq cm 07/20/2015 83631- Debride <25 sq cm 06/27/2016 18365 I&D ABSCESS- SIMPLE,SINGLE 021 04684 I&D ABSCESS- SIMPLE,SINGLE 016 85205-EFEB SKIN LESIONS, OVER 4 11/10/19 25 18674-FHYB SKIN LESIONS, OVER 4 07/09/19 45992-TZPM SKIN LESIONS, OVER 4 06/28/19 21 03199-JXML SKIN LESIONS, OVER 4 10/04/19 30540-JWWH SKIN LESIONS, OVER 4 01/10/20 21 25051-SQSB SKIN LESIONS, OVER 4 05/16/19 10645-JIQM SKIN LESIONS, OVER 4 03/09/19 67642-IIIY SKIN LESIONS, OVER 4 09/23/19 83296-DEET SKIN LESIONS, OVER 4 12/28/19 20 03096-NNIX SKIN LESIONS, OVER 4 03/28/19 33225-VBLH SKIN LESIONS, OVER 4 03/17/19 19 90457-IOSJ SKIN LESIONS, OVER 4 06/24/19 19 31058-ONIR SKIN LESIONS, OVER 4 08/26/19 19 10200-LZWM SKIN LESIONS, OVER 4 10/28/19 19 80831-NKVT SKIN LESIONS, OVER 4 01/20/20 19 65794-FBKQ SKIN LESIONS, OVER 4 05/04/19 20 44062-JJLL SKIN LESIONS, OVER 4 12/14/19 17 62506-SKUM SKIN LESIONS, OVER 4 12/17/19 18 04900-FBAO SKIN LESIONS, OVER 4 10/02/19 18 51290-BMFU SKIN LESIONS, OVER 4 07/20/19 16 39987-ZUQR SKIN LESIONS, OVER 4 06/15/19 17 60173-TSZQ SKIN LESIONS, 2 TO 4 07/11/19 18 87501-KIPW NAIL(S) 07/20/2015 20794-FWKXMJBZ OF HEMATOMA/FLUID 020 Next Appt Details Provider Name:Kristen Mary nettles, 03/10/2025 03:45:00 PM, [address] [place], [address], Insurance Providers Payer Name Payer Address Payer Phone Subscriber Number Group Number Insured Name Patient Relationship to Insured Coverage Start Date Coverage End Date Medicare National Govt [facility] [address] [place] [address] [id number] Gloria Vela Self - patient is the insured 2 [employer] [address] [place] [address] [id number] Gloria Vela Self - patient is the insured Medical (General) History Medical History History ICD Code Arthritis Cholesterol high blood pressure measles mumps chicken pox Surgical History Surgery Date(Month/Year) appendectomy 1968 cholecystectomy 2009 parathyroidectomy 2009 hysterectomy 2010 bladder surgery 2010 Hospitalization History Reason Date(Month/Year) [facility] - fell 6 hrs test done F/L w/PCP on 11/21/2111/2021 [facility] strok e- multiple ER visits 03/2018 [facility] - migraine 12/14/17 [place] Code disoriented 01/2017
--- OUTSIDE RECORDS SUMMARY | 2025-02-28 17:17 | XMS_ITS | Clinical Summary ---
Author Organization [facility] Address [address] [place] [address] Phone Care Team Providers Care Health Worker Name Role Phone Unknown, Unknown Primary Care Provider Tung johnson Allergies Active Allergy Reactions Criticality Noted Date [...] of knee Hypercholesterolemia 03/26/2012 Overview (04/24/2014): Hypercholesterolemia Family History Medical History Relation Comments Hypertension [...] VACCINES (50+ years) (2 of 2 - PCV20 or PCV21) 11/09/2016 11/10/2015 INFLUENZA VACCINE (#1) 2024 9, 11/08/2016, 11/28/2015 COVID-19 VACCINE (2 - 2024-2 6 season) 2024 05/12/2020 ZOSTER VACCINES Completed 03/26/2020, 01/20/2020 HEPATITIS A [...] this topic Medical Devices Not on file Insurance MEDICARE PART A & B [employer] SUPPLEMENT MEDICARE PART A & B [employer] MED[employer] SUPPLEMENT MEDICARE PART A & B [employer] [facility] MEDEX SUPPLEMENT Care Teams Health Worker Relationship Specialty Start Date End Date Unknown, Unknown, PCP - General 02/21/17 Additional Source Comments The information contained in this document represents components of the legal health record. It is not the complete legal health record.[facility]
[2025-02-28 17:29] LABS: Troponin-I High Sensitivity 37.1 ng/L (<3.5-17.0)
--- NOTE | 2025-02-28 18:10 | PC.NURSE ---
Pt yelling out stating that her legs are burning. RN asked pt how to assist in relieving this pain. pt inarticulate, becoming agitated, ripping off monitor and purewick. pt educated about not getting up without assistance, purewick replaced, curtain open, pt does not allow for placement of yellow socks. frequent checks by staff.
--- NOTE | 2025-02-28 19:40 | PC.NURSE ---
20 g IV in left AC
--- NOTE | 2025-02-28 20:00 | PC.NURSE ---
Late entry: Pt is becoming increasingly agitated and screaming in her room. Pt is not verbally redirectable. Intermittently attempting to hit/grab staff. UTO labs and urine at this time, CAITLIN Ridley aware. Pending medication orders.
[2025-02-28 20:52] LABS: Appearance Urine Clear; Glucose Urine UA Negative (Negative); PH 7.0 (5.0-9.0); Specific Gravity - Urine 1.020 (1.005-1.025)
[2025-02-28 21:28] LABS: Troponin-I High Sensitivity 67.8 ng/L (<3.5-17.0)
[2025-02-28 21:49] LABS: Ammonia 42 umol/L (13-55)
--- NOTE | 2025-02-28 22:00 | PC.NURSE ---
Late entry: Pt noted to be febrile upon checking rectal temperature. Rectal probe placed for temp monitoring.
[2025-02-28] MEDS: vancomycin/NS 2,000 MG/500 ML PLAST..BAG 250 MG IV (22:01)
--- NOTE | 2025-02-28 23:40 | PC.NURSE ---
Late entry: Pt is yelling out, complaining of severe leg pain. CAITLIN Ridley made aware, pending pain medication orders. Pt educated administration physician barfield use.
[2025-02-28] MEDS: OLANZapine 10 MG VIAL IM (23:49)
[2025-03-01] VITALS (12 sets, daily range): BP systolic 90–175; BP diastolic 34–94; PULSE 58–88; RESP 14–20; TEMP 36.4–37.6; O2SAT 92–98; BMI 39.3
--- NOTE | 2025-03-01 00:25 | PC.NURSE ---
Late entry: Pt coming back from CT scanner, using Purewick as a projectile towards staff. Pt not verbally redirectable at this time. Provider aware.
[2025-03-01 00:28] LABS: Resp Syncy Virus RNA Qual PCR NEGATIVE (Negative); SARS COV2 PCR INHOUSE NEGATIVE (Negative)
[2025-03-01] MEDS: diazePAM 10 MG/2 ML CARTRIDGE 5 MG IVPUSH (00:28)
[2025-03-01] MEDS: Lactated Ringers 1,000 ML 999 ML IV (00:38)
--- NOTE | 2025-03-01 02:12 | PC.NURSE ---
Pt resting quietly on stretcher. RR even and unlabored, equal chest rise and fall.
--- NOTE | 2025-03-01 03:02 | PC.NURSE ---
Trop drawn and sent to lab. Pt became extremely agitated during lab draw. Screaming out and attempting to grab staff.
[2025-03-01 03:30] LABS: Troponin-I High Sensitivity 117.2 ng/L (<3.5-17.0)
--- NOTE | 2025-03-01 03:30 | PC.NURSE ---
Critical lab value taken from lab-trop 117.2. CAITLIN tillman
--- NOTE | 2025-03-01 03:33 | ECG_ITS ---
Test Reason : AMS,ELEVATED TROP Blood Pressure : */* mmHG Vent. Rate : 62 BPM Atrial Rate : 62 BPM P-R Int : 200 ms QRS Dur : 132 ms QT Int : 476 ms P-R-T Axes : 31 -46 93 degrees QTcB Int : 483 ms Normal sinus rhythm Left axis deviation Left bundle branch block Abnormal ECG When compared with ECG of 16-Nov-2021 12:37, QT has lengthened Referred By: Vashti Ridley Electronically Signed By: NICOLETTE DAVIS
[2025-03-01] MEDS: Ketamine HCl/NS 50 MG/5 ML SYRINGE 30 MG IVPUSH (03:56)
[2025-03-01 04:31] LABS: INTERNATIONAL NORM RATIO 1.4 (0.9-1.1); Prothrombin Time 17.4 SEC (11.2-13.5)
[2025-03-01] MEDS: Heparin Sodium,Porcine/1/2NS 25,000 UNIT/250 ML IV.SOLN 10 UNIT IVCONT (04:35)
--- NOTE | 2025-03-01 04:41 | PC.NURSE ---
Heparin gtt infusing, starting at 10.45 units/kg/hr. Repeat PTT due at 1035.
--- NOTE | 2025-03-01 04:41 | PC.NURSE ---
CAITLIN Burns placed an ultrasound guided IV in the right upper arm, 20 g.
--- NOTE | 2025-03-01 05:44 | PM.IMHP ---
History of Present Illness Date of Service: 03/01/25 Attending physician on admission: Billy Garnett Chief Complaint: Confusion Gloria Vela is 89 years old woman with past medical history significant for paroxysmal atrial fibrillation, old left bundle branch block, and essential hypertension who was brought to the emergency department via EMS after she was found to be agitated is confused. She received IM sedation by paramedics. HPI was provided by ED provider as the patient was sedated. According to ED notes patient was complaining of small wound in her right foot which has of up and developed small blisters over the past 24 hours. She was found to have fever of 102.6 and hypotension. Last vital signs are stable. Blood workup showed normal CBC, there is neutrophilia of 73.8%. There is no lactic acidosis. INR is 1.4. There are no significant electrolyte imbalances. Renal function is adequate. LFTs are normal. Troponin increased from 387.1 267.8 then 117.2 urinalysis is normal. Viral testing for COVID-19, influenza and RSV is negative. CXR showed moderate diffuse interstitial prominence in the bullous lung may represent pulmonary vascular congestion/fluid overload without no focal consolidations. Head CT scan showed no acute intracranial abnormalities. Right tib-fib x-ray showed no acute osseous abnormalities of the right tibia fibula. ED Tx: -Haldol 5 mg IM -Zyprexa 10 mg IM -Ketamine 30 mg IV -Versed 2 mg IV -Morphine 4 mg IV -Tylenol 1 g IV -Valium 5 mg IV -NS 1 L bolus -LR 1 bolus IV -Vancomycin 2 g IV -Zosyn 3.375 g IV -Heparin IV infusion [facility] Medical History HTN (hypertension) Left bundle branch block Paroxysmal atrial fibrillation Family History Father CVD (cardiovascular disease) Mother CVD (cerebrovascular disease) Surgical History Hx of parathyroidectomy Hx of hysterectomy Hx laparoscopic cholecystectomy Social History Unable to assess alcohol history related to: Unknown Alcohol intake: never Patient Tobacco Use Status: Former Tobacco user Smoked in Last 30 Days: No Use of substances other than those prescribed or required for medical reasons: Unknown Advance Directives: No Advance Directives Information Provided: No Nutrition Risks: No Nutritional Risk Meds Allergies Allergy/AdvReac Type Severity Reaction Status Date / Time ezetimibe (Zetia) Allergy Unknown muscle Verified 02/28/25 16:24 aches simvastatin AdvReac Unknown myopathy Verified 11/18/21 12:51 statins Allergy Unknown muscle Uncoded 02/28/25 16:24 aches Active Medications: Current Medications Acetaminophen (Acetaminophen Supp 650 Mg Supp.Rect) 650 mg [place] Q6H PRN PRN Reason: Fever >101 Heparin Sodium/Sodium Chloride (Heparin Sodium,Porcine/1/2ns) 25,000 unit in 250 mls @ 0 mls/hr IVCONT .Q0M [facility]; Protocol Last Admin: 03/01/25 04:35 Dose: 10.45 units/kg/hr, 10 mls/hr Lactated Ringer's (Lr) 1,000 mls @ 70 mls/hr IVCONT .[id number] [facility] Stop: 03/01/25 20:02 Piperacillin Sod/Tazobactam (Sod 4.5 gm/ Sodium Chloride) 100 mls @ 200 mls/hr IV Q6H [facility] Pharmacy Consult (Consult Rx Vancomycin Dosing) 1 each MISCELLANE DAILY PRN PRN Reason: Consult order Sodium Chloride (0.9 % Sodium Chloride Flush 3 Ml Syringe) 3 ml IVFLUSH QSHIFT [facility] Home Medications ?Medication ?Instructions ?Recorded ?Confirmed ?Last Taken ?Type apixaban 5 mg tablet 5 mg PO BID 09/13/20 11/10/24 Unknown History aspirin 81 mg tablet,delayed 81 mg PO DAILY 09/13/20 11/10/24 Unknown History release (Adult Aspirin Regimen) cholecalciferol (vitamin D3) 25 25 mcg PO DAILY 09/13/20 11/10/24 Unknown History mcg (1,000 unit) capsule rosuvastatin 5 mg tablet 5 mg PO DAILY 09/13/20 11/10/24 Unknown History calcium carbonate (Calcium 500) 500 mg PO BID 11/10/24 11/10/24 Unknown History carvedilol 3.125 mg tablet 3.125 mg PO BID 11/10/24 11/10/24 Unknown History Physical Exam Vital Signs and Narrative: Vital Signs: Last Vital Signs Temp 98.4 F 03/01/25 04:32 Pulse 58 03/01/25 04:32 Resp 16 03/01/25 04:32 BP 113/62 03/01/25 04:32 Pulse Ox 97 03/01/25 04:32 O2 Del Method Nasal Cannula 03/01/25 04:32 O2 Flow Rate 2 03/01/25 04:32 BMI result Body Mass Index 39.9 General: Sedated. HEENT: Head normocephalic, atraumatic. PER, EOMI. Sclerae anicteric, conjunctiva clear. Mucous membranes dry. Neck: No JVD. Heart: RRR, no murmurs, rubs or gallops. Lungs: Clear to auscultation bilaterally. No wheezes, rales, or rhonchi. Poor respiratory effort. Abdomen: Soft, non tenderness, nondistended, normoactive bowel sounds. No hepatosplenomegaly, masses or masses. Extremities: Bilateral symmetric pitting edema involving the calf, ankle and feet, extending proximally to the lower legs (3+). Ankles and feet appear symmetrically swollen with loss of normal contour. There is diffuse erythema of bilateral lower legs more pronounced distally (R>L), chronic skin changes including dryness, scaling of flaking. Skin: Dry. No pallor. No jaundice. Neurologic: Sedated Psychological: Sedated Results Labs 02/28/25 16:45 02/28/25 16:45 Labs: Laboratory Results - last 24 hr 02/28/25 02/28/25 02/28/25 16:45 20:34 20:47 MCV 94.0 MCH 31.0 MCHC 33.0 RDW 13.2 Plt Count 231 MPV 10.5 Immature Gran % (Auto) 0.3 Neut % (Auto) 73.8 H Lymph % (Auto) 15.5 L [place] % (Auto) 7.1 Eos % (Auto) 2.7 Baso % (Auto) 0.6 Lymph # (Auto) 1.6 [place] # (Auto) 0.7 Eos # (Auto) 0.3 Baso # (Auto) 0.1 Abs Immat Gran (auto) 0.03 Absolute Neuts (auto) 7.5 Absolute Nucleated RBC 0.000 Nucleated RBC % (auto) 0.0 ESR 24 Hold Purple Top SEE NOTE PT INR Anion Gap 12 Estim Creat Clear Calc 48.9 Estimated GFR > 60 Random Glucose 110 Lactic Acid 1.5 Calcium 9.7 Magnesium 2.1 Total Bilirubin 0.8 AST 18 ALT 11 Alkaline Phosphatase 88 Ammonia Troponin I High Sens 37.1 H 67.8 H* D C-Reactive Protein 3.26 H NT-Pro-B Natriuret Pep 1315.6 H 2497.2 H Total Protein 7.4 Albumin 4.4 Urine Color Yellow Urine Appearance Clear Urine pH 7.0 Ur Specific [place] 1.020 Urine Protein Negative Urine Glucose (UA) Negative Urine Ketones Negative Urine Blood Negative Urine Nitrite Negative Ur Leukocyte Esterase Negative Influenza Type A (PCR) Influenza Type B (PCR) RSV RNA Qual (PCR) SARS-CoV-2 RNA (RT-PCR) 02/28/25 02/28/25 03/01/25 21:23 23:48 02:57 MCV MCH MCHC RDW Plt Count MPV Immature Gran % (Auto) Neut % (Auto) Lymph % (Auto) [place] % (Auto) Eos % (Auto) Baso % (Auto) Lymph # (Auto) [place] # (Auto) Eos # (Auto) Baso # (Auto) Abs Immat Gran (auto) Absolute Neuts (auto) Absolute Nucleated RBC Nucleated RBC % (auto) ESR Hold Purple Top PT INR Anion Gap Estim Creat Clear Calc Estimated GFR Random Glucose Lactic Acid Calcium Magnesium Total Bilirubin AST ALT Alkaline Phosphatase Ammonia 42 Troponin I High Sens 117.2 H* D C-Reactive Protein NT-Pro-B Natriuret Pep Total Protein Albumin Urine Color Urine Appearance Urine pH Ur Specific [place] Urine Protein Urine Glucose (UA) Urine Ketones Urine Blood Urine Nitrite Ur Leukocyte Esterase Influenza Type A (PCR) NEGATIVE Influenza Type B (PCR) NEGATIVE RSV RNA Qual (PCR) NEGATIVE SARS-CoV-2 RNA (RT-PCR) NEGATIVE 03/01/25 04:14 MCV MCH MCHC RDW Plt Count MPV Immature Gran % (Auto) Neut % (Auto) Lymph % (Auto) [place] % (Auto) Eos % (Auto) Baso % (Auto) Lymph # (Auto) [place] # (Auto) Eos # (Auto) Baso # (Auto) Abs Immat Gran (auto) Absolute Neuts (auto) Absolute Nucleated RBC Nucleated RBC % (auto) ESR Hold Purple Top PT 17.4 H INR 1.4 H Anion Gap Estim Creat Clear Calc Estimated GFR Random Glucose Lactic Acid Calcium Magnesium Total Bilirubin AST ALT Alkaline Phosphatase Ammonia Troponin I High Sens C-Reactive Protein NT-Pro-B Natriuret Pep Total Protein Albumin Urine Color Urine Appearance Urine pH Ur Specific [place] Urine Protein Urine Glucose (UA) Urine Ketones Urine Blood Urine Nitrite Ur Leukocyte Esterase Influenza Type A (PCR) Influenza Type B (PCR) RSV RNA Qual (PCR) SARS-CoV-2 RNA (RT-PCR) Assessment and Plan (1) Acute encephalopathy: Status: Acute (2) Elevated troponin: Status: Acute Plan Gloria Vela is 89 y/o woman who presents with: Acute toxic encephalopathy secondary to sepsis due to LLE cellulitis (underlying stasis dermatitis). NPO. Aspiration precautions. Continue empiric IV antibiotic therapy with vancomycin and Zosyn. No further IVFs administration for now due to possible overload/CHF. Blood cultures obtained -will follow results. Elevated troponin, possible due to hypoperfusion/hypotension. Old left bundle branch block. Started on heparin IV drip. Cardiology consult. Trend troponin. Elevated pro-BNP. Likely multifactorial: Sepsis, ?pulm edema on CXR. Start furosemide infusion at 2ml/hr.. Continue to monitor pro BNP. Paroxysmal atrial fibrillation. Continue Eliquis. Carvedilol on hold due to soft blood pressure. Essential hypertension. Carvedilol home due to soft blood pressure. Hyperlipidemia. Continue statin when able. Obesity, class II. BMI 39.9 kg M2. Lifestyle modification. , mild to moderate. F/U Dr. Luz. Code status: Full DVT prophylaxis: SCDs, restart Eliquis when able or consider heparin subcut if NPO status persists >24 hrs. Patient will need hospitalization for at least 2 midnights for acute toxic encephalopathy secondary to sepsis due to left lower extremity treatment with IV antibiotics and IV fluids. Quality Stroke Does the patient have a stroke diagnosis?: No VTE Prior VTE?: No VTE Risk Level:: Medical - moderate - high VTE Device Contraindication: N/A - Device Ordered VTE Drug Contraindication: Treatment Not Indicated
[2025-03-01] MEDS: Lactated Ringers 1,000 ML 70 ML IVCONT (05:47)
--- NOTE | 2025-03-01 06:20 | HO.NURTONUR ---
Addendum entered by Caro Aranda RN 03/01/25 20:20: Heparin and lasix drips have been stopped. pt is axox3 intermittently confused but redirectable. calm/cooperative. continue with iv abx. Addendum entered by Pura Mitchell RN 03/01/25 06:49: Update 03/01 0650: LR discontinued per hospitalist orders, IV Lasix started at 2 mg/hr. Original Note: Pt is an 89 y.o. female coming in from home with altered mental status. Pt's reports pt woke up confused and agitated. Per pt is a&ox4 at baseline. Pt also has increased redness and swelling to RLE with a weeping wound. PMH HTN (hypertension) Left bundle branch block Paroxysmal atrial fibrillation. Head CT and right tib fib xray are neg for acute processes. Chest xray shows 1. Moderate diffuse interstitial prominence in both lungs may represent pulmonary vascular congestion/fluid overload. No focal consolidation. Labs remarkable for BNPs 1315.6 and 2497.2. Trops 37.1, 67.8, 117.2. UA neg. Pt started on heparin gtt running at 10.45 units/kg/hr. LR running at 70 mL/hr. Ultrasound guided 20 g IV right upper arm. 20 g IV left AC. Pt has been extremely agitated and confused all night and has required multiple IM/IV medications to calm her. Pt is not verbally redirectable and will continually yell out from her room. Intermittently on 2-3 L O2 for hypoxia. No O2 at baseline. Purewick in place, pt will intermittently attempt to use Purewick as a projectile. Pt was initially febrile on arrival, rectal probe in place for temp monitoring.
[2025-03-01] MEDS: Furosemide 200 MG in 0.9 % Sodium Chloride 80 ML IVCONT (06:41)
--- NOTE | 2025-03-01 06:45 | PC.NURSE ---
IV fluids paused and IV Lasix infusing per hospitalist orders.
--- NOTE | 2025-03-01 06:46 | PC.NURSE ---
On last interaction with this RN, pt was much more clear minded and able to make her needs known. Pt requested to have her bed adjusted and was able to verbalize where she was having pain. Reports no pain in her legs at this time but her lower back was sore from laying on the stretcher.
--- NOTE | 2025-03-01 08:18 | PHA.PROG ---
Admission Date/Time: March 01, 2025 05:00 Indication: Sepsis Weight in k.7 kg Adjusted body weight in Kg: [place] body weight in Kg: Obesity Dosing Indication % IBW: Serum Creatinine - Last 168 Hours 02/28/25 16:45 Creatinine 0.84 Estimated CrCl and GFR - Last 168 Hours 02/28/25 16:45 Estim Creat Clear Calc 48.9 Estimated GFR > 60 Vancomycin Loading Dose: 2000 mg Current Vancomycin Dosing Regimen: 1500 mg Q24H Vancomycin Monitoring using AUC goal of 400 - 600 range with trough as surrogate marker: Predicted AUC 515 and trough 15.4 Date and Time for next Vancomycin Level to be drawn: 03/02 @2000 after second dose Pharmacist Comments on Vancomycin Plan: Vancomycin dosing will take advantage of [employer] as a clinical decision support tool that uses Bayesian modeling to calculate individual patient's pharmacokinetic parameters and forecast the patient's drug concentration time course with the target goal AUC 24 range of 400 - 600 mg/L/hr.
--- NOTE | 2025-03-01 09:15 | PC.NURSE ---
Patient alert and oriented, calm and cooperative. States she came in for a headache. Denies shortness of breath and chest pain. Bilateral lower extremity redness, swelling, weeping, right worse than left. Remains on Lasix and Heparin drips. Awaiting bed assignment.
[2025-03-01 09:30] LABS: Troponin-I High Sensitivity 64.5 ng/L (<3.5-17.0)
--- NOTE | 2025-03-01 10:09 | PM.CNCAR ---
History of Present Illness History of Present Illness Date of Service: 03/01/25 Chief complaint: NSTEMI Narrative: This is a cardiology consultation regarding elevated troponins. Generally seen by Dr. Luz. Last appointment was in November of this year. According to that note, history of paroxysmal atrial fibrillation, aortic stenosis [id number], left bundle-branch block and hypertension. It appears that she was doing well clinically and follow up appointment was made for one year. Currently, she is in the ER for confusion. Apparently, she had a small wound in her right foot and that developed blisters and she had fever of 102.6 degrees F and hypotension. In this context, troponins were checked and they were abnormal. Subsequently admitted. Currently, she states she is feeling fine when she has got absolutely no cardiac symptoms like chest pains or in fact never had any such symptoms. Review of Systems Review of Systems: Yes all other systems are reviewed and are negative Constitutional: Constitutional: Reports as per HPI and Reports no additional constitutional complaints Eyes: Eyes: Reports as per HPI and Denies no additional eye complaints ENT: Denies system reviewed and no additional complaints, except as documented and Reports as per HPI Cardiovascular: Cardiovascular: Reports as per HPI, Reports no additional cardiovascular complaints, Denies acrocyanosis, Denies cool extremities, Denies chest pain, Denies leg edema, Denies lightheadedness, Denies palpitations and Denies dyspnea Respiratory: Respiratory: Reports as per HPI, Denies no additional respiratory complaints and Denies dyspnea Gastrointestinal: Gastrointestinal: Reports as per HPI and Denies no additional gastrointestinal complaints Genitourinary: Genitourinary: Reports as per HPI Musculoskeletal: Musculoskeletal: Reports no additional musculoskeletal complaints and Reports as per HPI Integumentary/Breasts: Skin/Breast: Reports system reviewed and no additional complaints, except as docu Neurologic: Reports system reviewed and no additional complaints, except as documented and Reports as per HPI Psychiatric: Psychiatric: Reports no additional psychiatric complaints and Reports as per HPI Endocrine: Endocrine: Reports no additional endocrine complaints, Reports as per HPI and Denies palpitations Hematologic/Lymphatic: Hematologic/Lymphatic: Reports no additional hematologic/lymphatic complaints and Reports as per HPI Allergic/Immunologic: Allergic/Immunologic: Reports no additional allergic/immunologic complaints and Reports as per HPI [facility] Past Medical History Medical History HTN (hypertension) Left bundle branch block Paroxysmal atrial fibrillation Family History Family History Father CVD (cardiovascular disease) Mother CVD (cerebrovascular disease) Surgical History Surgical History Hx of parathyroidectomy Hx of hysterectomy Hx laparoscopic cholecystectomy Social History Social History Unable to assess alcohol history related to: Unknown Alcohol intake: never Patient Tobacco Use Status: Former Tobacco user Smoked in Last 30 Days: No Use of substances other than those prescribed or required for medical reasons: Unknown Advance Directives: No Advance Directives Information Provided: No Nutrition Risks: No Nutritional Risk Meds Allergies Allergy/AdvReac Type Severity Reaction Status Date / Time ezetimibe (Zetia) Allergy Unknown muscle Verified 02/28/25 16:24 aches simvastatin AdvReac Unknown myopathy Verified 11/18/21 12:51 statins Allergy Unknown muscle Uncoded 02/28/25 16:24 aches Active Medications: Current Medications Acetaminophen (Acetaminophen Supp 650 Mg Supp.Rect) 650 mg [place] Q6H PRN PRN Reason: Fever >101 Heparin Sodium (Porcine) (Heparin Sodium,Porcine 5,000 Unit/Ml Vial) 3,800 unit 40 unit/kg (3800 unit) IVPUSH PROTOCOL BOLUS PRN; Protocol PRN Reason: 40 unit/kg - Heparin Protocol Heparin Sodium (Porcine) (Heparin Sodium,Porcine 5,000 Unit/Ml Vial) 7,700 unit 80 unit/kg (7700 unit) IVPUSH PROTOCOL BOLUS PRN; Protocol PRN Reason: 80 unit/kg - Heparin Protocol Heparin Sodium/Sodium Chloride (Heparin Sodium,Porcine/1/2ns) 25,000 unit in 250 mls @ 0 mls/hr IVCONT .Q0M [facility]; Protocol Last Admin: 03/01/25 04:35 Dose: 10.45 units/kg/hr, 10 mls/hr Lactated Ringer's (Lr) 1,000 mls @ 70 mls/hr IVCONT .[id number] [facility] On Hold: 03/01/25 06:30 Last Infusion: 03/01/25 09:13 Dose: Infused Piperacillin Sod/Tazobactam (Sod 4.5 gm/ Sodium Chloride) 100 mls @ 200 mls/hr IV Q6H [facility] Last Infusion: 03/01/25 06:42 Dose: Infused Furosemide 200 mg/ Sodium (Chloride) 100 mls @ 1 mls/hr IVCONT .Q24H [facility] Last Admin: 03/01/25 06:41 Dose: 2 mg/hr, 1 mls/hr Vancomycin HCl 1,500 mg/ (Sodium Chloride) 500 mls @ 333.333 mls/hr IV Q24H [facility] Metoprolol Tartrate (Metoprolol Tartrate 5 Mg/5 Ml Vial) 2.5 mg IVPUSH Q6H PRN; Protocol PRN Reason: Rapid AFib Olanzapine (Olanzapine 10 Mg Vial) 5 mg IM DAILY PRN PRN Reason: agitation Pharmacy Consult (Consult Rx Vancomycin Dosing) 1 each MISCELLANE DAILY PRN PRN Reason: Consult order Sodium Chloride (0.9 % Sodium Chloride Flush 3 Ml Syringe) 3 ml IVFLUSH QSHIFT [facility] Last Admin: 03/01/25 06:15 Dose: Not Given Home Medications ?Medication ?Instructions ?Recorded ?Confirmed ?Last Taken ?Type apixaban 5 mg tablet 5 mg PO BID 09/13/20 11/10/24 Unknown History aspirin 81 mg tablet,delayed 81 mg PO DAILY 09/13/20 11/10/24 Unknown History release (Adult Aspirin Regimen) cholecalciferol (vitamin D3) 25 25 mcg PO DAILY 09/13/20 11/10/24 Unknown History mcg (1,000 unit) capsule rosuvastatin 5 mg tablet 5 mg PO DAILY 09/13/20 11/10/24 Unknown History calcium carbonate (Calcium 500) 500 mg PO BID 11/10/24 11/10/24 Unknown History carvedilol 3.125 mg tablet 3.125 mg PO BID 11/10/24 11/10/24 Unknown History carvedilol 6.25 mg tablet 6.25 mg PO BID 03/01/25 Unknown History Physical Exam Vital Signs: Vital Signs: Last Vital Signs Temp 97.5 F 03/01/25 06:38 Pulse 61 03/01/25 09:27 Resp 16 03/01/25 09:27 BP 138/82 03/01/25 09:27 Pulse Ox 94 03/01/25 09:27 O2 Del Method Room Air 03/01/25 09:27 O2 Flow Rate 2 03/01/25 04:32 BMI result Body Mass Index 39.9 Const: General: comfortable and no acute distress Orientation/consciousness: patient oriented x3 HEENT: Other: Unremarkable Head: Yes normal to inspection Neck: Neck: Yes normal visual inspection Chest: Chest palpation & inspection: normal inspection of the chest Resp: Auscultation: clear to auscultation bilaterally Cardio: Palpation: normal PMI Heart sounds: S1 normal heart sound present, S2 normal heart sound present, no gallops, no murmurs and no rubs GI: Palpation (GI): Soft to palpation Back/Spine/Pelvis: Other: unremarkable Skin: General skin exam: no rashes or lesions noted Neuro: General: patient oriented x3 Extrem: General: Yes normal to inspection Psych: Mental Status: mental status grossly normal Objective Labs and Meds 02/28/25 16:45 02/28/25 16:45 Lab results: Laboratory Results - last 24 hr 02/28/25 02/28/25 02/28/25 16:45 20:34 20:47 WBC 10.2 RBC 4.32 Hgb 13.4 Hct 40.6 MCV 94.0 MCH 31.0 MCHC 33.0 RDW 13.2 Plt Count 231 MPV 10.5 Immature Gran % (Auto) 0.3 Neut % (Auto) 73.8 H Lymph % (Auto) 15.5 L [place] % (Auto) 7.1 Eos % (Auto) 2.7 Baso % (Auto) 0.6 Lymph # (Auto) 1.6 [place] # (Auto) 0.7 Eos # (Auto) 0.3 Baso # (Auto) 0.1 Abs Immat Gran (auto) 0.03 Absolute Neuts (auto) 7.5 Absolute Nucleated RBC 0.000 Nucleated RBC % (auto) 0.0 ESR 24 Hold Purple Top SEE NOTE PT INR Sodium 139 Potassium 4.3 Chloride 104 Carbon Dioxide 27 Anion Gap 12 BUN 17 H Creatinine 0.84 Estim Creat Clear Calc 48.9 Estimated GFR > 60 Random Glucose 110 Lactic Acid 1.5 Calcium 9.7 Magnesium 2.1 Total Bilirubin 0.8 AST 18 ALT 11 Alkaline Phosphatase 88 Ammonia Troponin I High Sens 37.1 H 67.8 H* D C-Reactive Protein 3.26 H NT-Pro-B Natriuret Pep 1315.6 H 2497.2 H Total Protein 7.4 Albumin 4.4 Urine Color Yellow Urine Appearance Clear Urine pH 7.0 Ur Specific [place] 1.020 Urine Protein Negative Urine Glucose (UA) Negative Urine Ketones Negative Urine Blood Negative Urine Nitrite Negative Ur Leukocyte Esterase Negative Influenza Type A (PCR) Influenza Type B (PCR) RSV RNA Qual (PCR) SARS-CoV-2 RNA (RT-PCR) 02/28/25 02/28/25 03/01/25 21:23 23:48 02:57 WBC RBC Hgb Hct MCV MCH MCHC RDW Plt Count MPV Immature Gran % (Auto) Neut % (Auto) Lymph % (Auto) [place] % (Auto) Eos % (Auto) Baso % (Auto) Lymph # (Auto) [place] # (Auto) Eos # (Auto) Baso # (Auto) Abs Immat Gran (auto) Absolute Neuts (auto) Absolute Nucleated RBC Nucleated RBC % (auto) ESR Hold Purple Top PT INR Sodium Potassium Chloride Carbon Dioxide Anion Gap BUN Creatinine Estim Creat Clear Calc Estimated GFR Random Glucose Lactic Acid Calcium Magnesium Total Bilirubin AST ALT Alkaline Phosphatase Ammonia 42 Troponin I High Sens 117.2 H* D C-Reactive Protein NT-Pro-B Natriuret Pep Total Protein Albumin Urine Color Urine Appearance Urine pH Ur Specific [place] Urine Protein Urine Glucose (UA) Urine Ketones Urine Blood Urine Nitrite Ur Leukocyte Esterase Influenza Type A (PCR) NEGATIVE Influenza Type B (PCR) NEGATIVE RSV RNA Qual (PCR) NEGATIVE SARS-CoV-2 RNA (RT-PCR) NEGATIVE 03/01/25 03/01/25 04:14 08:31 WBC RBC Hgb Hct MCV MCH MCHC RDW Plt Count MPV Immature Gran % (Auto) Neut % (Auto) Lymph % (Auto) [place] % (Auto) Eos % (Auto) Baso % (Auto) Lymph # (Auto) [place] # (Auto) Eos # (Auto) Baso # (Auto) Abs Immat Gran (auto) Absolute Neuts (auto) Absolute Nucleated RBC Nucleated RBC % (auto) ESR Hold Purple Top PT 17.4 H INR 1.4 H Sodium Potassium Chloride Carbon Dioxide Anion Gap BUN Creatinine Estim Creat Clear Calc Estimated GFR Random Glucose Lactic Acid Calcium Magnesium Total Bilirubin AST ALT Alkaline Phosphatase Ammonia Troponin I High Sens 64.5 H* C-Reactive Protein NT-Pro-B Natriuret Pep Total Protein Albumin Urine Color Urine Appearance Urine pH Ur Specific [place] Urine Protein Urine Glucose (UA) Urine Ketones Urine Blood Urine Nitrite Ur Leukocyte Esterase Influenza Type A (PCR) Influenza Type B (PCR) RSV RNA Qual (PCR) SARS-CoV-2 RNA (RT-PCR) ECG Interpretation: EKG shows sinus rhythm at 62/Min; [place] prolongation 200 milliseconds; left bundle-branch block pattern. Left bundle-branch block is chronic. Assessment and Plan (1) Non-ST elevation [place] (NSTEMI): Status: Acute (2) Paroxysmal atrial fibrillation: Status: Acute (3) Left bundle branch block: Status: Acute (4) Aortic stenosis: Status: Acute Plan Per last echocardiogram in December, LVEF 60-65%. Mild aortic stenosis. Possible mild mitral stenosis. Ascending aortic size 4 cm. Troponin levels are 37, 68, 117 and 65. Overall, low-grade troponin leak which is most likely demand related from concurrent medical issues. She does not really have any chest pain or active cardiac symptoms. She is on Eliquis at home and that can be continued without changes. Procedures Date of Service Date of Service: 03/01/25
--- NOTE | 2025-03-01 10:20 | PM.EVENT ---
Event Note Date of Service: 03/01/25 Event Note: Gloria Vela is 89 y/o woman who presented with Acute toxic encephalopathy secondary to sepsis due to LLE cellulitis (underlying stasis dermatitis). Aspiration precautions. Continue empiric IV antibiotic therapy with vancomycin and Zosyn. No further IVFs administration for now due to possible overload/CHF. Follow Blood cultures Elevated troponin, possible due to hypoperfusion/hypotension. Old left bundle branch block. s/p heparin IV drip. Cardiology consult> likely from demand related to concurrent medical issues, continue her usual eliquis Trend troponin. Elevated pro-BNP. Likely multifactorial Sepsis, ?pulm edema on CXR. stop furosemide infusion at 2ml/hr. Continue to monitor pro BNP. Paroxysmal atrial fibrillation. Continue Eliquis. Carvedilol on hold due to soft blood pressure. Essential hypertension. Carvedilol home due to soft blood pressure. Hyperlipidemia. Continue statin when able. Obesity, class II. BMI 39.9 kg M2. Lifestyle modification. , mild to moderate. F/U Dr. Luz. Code status: Full DVT prophylaxis: sherlyn Patient will need hospitalization for at least 2 midnights for acute toxic encephalopathy secondary to sepsis due to left lower extremity treatment with IV antibiotics and IV fluids. Time Spent With Patient Time: Total time managing care of this patient today ____ minutes.
[2025-03-01 10:22] LABS: MANUAL DIFF FLAG NO
[2025-03-01 10:26] LABS: Hematocrit 41.7 % (37.0-47.0); Hemoglobin 13.0 g/dl (12.0-16.0); Imm Gran Abs Auto 0.05 X10*3/uL (0.00-0.03); Imm Gran Pct Auto 0.6 % (0.0-0.4); Lymphocytes Absolute Auto 1.8 X10*3/uL (1.2-4.9); Mean Corpuscular HGB Conc 31.2 g/dl (31.0-35.0); Mean Corpuscular Hemoglobin 31.1 pg (27.0-33.0); Mean Corpuscular Volume 99.8 fL (80.0-98.0); NRBC Abs Auto 0.000 X10*3/uL (0.0-0.012); NRBC Pct Auto 0.0 /100WBC (0.0-0.2); Platelet Count 171 X10*3/uL (160-400); Red Blood Count 4.18 X10*6/uL (4.20-5.50); White Blood Count 8.8 X10*3/uL (4.8-10.8)
--- NOTE | 2025-03-01 10:32 | PHA.MEDREC ---
Addendum entered by Jared Ram PharmD 03/01/25 10:36: reviewed Original Note: Pharmacy Consult ? Medication Reconciliation Pharmacy has completed the medication reconciliation. Spoke with pt spouse (Ricardo [phone]) to confirm pt medications; Pt AMS. Spouse confirmed pt medications; pt taking Calcium Carbonate 600mg tabs 2 tabs (1200mg) at bedtime and pt Carvedilol tablet recently increased from 3.125mg BID to 6.25mg BID.
[2025-03-01 10:33] LABS: PTT Heparin Drip 87.7 SEC (53-77.9)
--- NOTE | 2025-03-01 11:05 | PC.NURSE ---
heparin drip stopped per provider order. patient advanced from npo to low sodium diet. remains on lasix drip.
[2025-03-01 11:56] LABS: Anion Gap 16 (12-20); Blood Urea Nitrogen 15 mg/dL (9-16); Calcium 8.7 mg/dL (8.4-10.2); Carbon Dioxide 19 mmol/L (22-29); Chloride 110 mmol/L (96-108); Creatinine Clr Calc Pharmacy 53.4; Estimated Glomerular Filt Rate > 60; Magnesium 2.0 mg/dL (1.6-2.6); Potassium 4.7 mmol/L (3.3-5.1); Sodium 140 mmol/L (135-145)
[2025-03-01] MEDS: 0.9 % Sodium Chloride Flush 3 ML SYRINGE IVFLUSH ×2 (16:43→22:19)
[2025-03-01] MEDS: Furosemide 40 MG/4 ML VIAL IVPUSH (18:13)
--- NOTE | 2025-03-01 21:19 | PC.NURSE ---
pt incontinent of urine and stool, cleaned up new bed linens. pt repositioned. transport taking pt upstairs now.
[2025-03-02] VITALS (9 sets, daily range): BP systolic 133–168; BP diastolic 61–76; PULSE 76–113; RESP 18–20; TEMP 36.3–37.2; O2SAT 90–97
[2025-03-02] MEDS: 0.9 % Sodium Chloride Flush 3 ML SYRINGE IVFLUSH ×3 (09:44→21:56)
[2025-03-02] MEDS: Furosemide 40 MG/4 ML VIAL IVPUSH ×2 (09:45→19:15)
--- NOTE | 2025-03-02 11:42 | MHC.CM.PN ---
IMM 03/02/25, Pt. lives with her , Ricardo, who is her HCP. Pt. does not use home health services. For DME, she has pumps that she uses on her legs for lymphedema. PCP confirmed: Bolivar Braden MD. to transport home at DC. DCP, either home or STR. to follow for DC needs.
--- NOTE | 2025-03-02 13:14 | PM.DS ---
DS: Providers Provider Date of admission: 03/01/25 05:00 <Candice Cisneros NP - Last Filed: 03/02/25 13:31> Date of discharge: 03/02/25 <Candice Cisneros NP - Last Filed: 03/02/25 13:31> 03/03/25 <Yane Nice MD - Last Filed: 03/03/25 11:47> Primary care physician: Bolivar Braden MD <Candice Cisneros NP - Last Filed: 03/02/25 13:31> Consults: 03/01/25 05:39 Consult to Cardiology Routine Consulting Provider: [facility] Reason for consultation: Elevated troponin Has provider been notified: No <Candice Cisneros NP - Last Filed: 03/02/25 13:31> DS: Diagnosis Discharge Diagnosis (1) Non-ST elevation NV (NSTEMI): Status: Acute <Candice Cisneros NP - Last Filed: 03/02/25 13:31> (2) Paroxysmal atrial fibrillation: Status: Acute <Candice Cisneros NP - Last Filed: 03/02/25 13:31> (3) Left bundle branch block: Status: Acute <Candice Cisneros NP - Last Filed: 03/02/25 13:31> (4) Aortic stenosis: Status: Acute <Candice Cisneros NP - Last Filed: 03/02/25 13:31> (5) Lung nodule seen on imaging study: Status: Acute <Candice Cisneros NP - Last Filed: 03/02/25 13:31> (6) Cellulitis of right leg: Status: Acute <Candice Cisneros NP - Last Filed: 03/02/25 13:31> (7) Sepsis: Status: Acute <Candice Cisneros NP - Last Filed: 03/02/25 13:31> DS: Summary Hospital Course Hospital Course: Admission note HPI History and physical as per admitting provider. Gloria Vela is 89 years old woman with past medical history significant for paroxysmal atrial fibrillation, old left bundle branch block, and essential hypertension who was brought to the emergency department via EMS after she was found to be agitated is confused. She received IM sedation by paramedics. HPI was provided by ED provider as the patient was sedated. According to ED notes patient was complaining of small wound in her right foot which has of up and developed small blisters over the past 24 hours. She was found to have fever of 102.6 and hypotension. Last vital signs are stable. Blood workup showed normal CBC, there is neutrophilia of 73.8%. There is no lactic acidosis. INR is 1.4. There are no significant electrolyte imbalances. Renal function is adequate. LFTs are normal. Troponin increased from 387.1 267.8 then 117.2 urinalysis is normal. Viral testing for COVID-19, influenza and RSV is negative. CXR showed moderate diffuse interstitial prominence in the bullous lung may represent pulmonary vascular congestion/fluid overload without no focal consolidations. Head CT scan showed no acute intracranial abnormalities. Right tib-fib x-ray showed no acute osseous abnormalities of the right tibia fibula. Hospital course The patient was admitted for hypoxemia in the setting of suspected pneumonia versus congestive heart failure exacerbation. BNP was noted to be increased compared to the prior day. The patient was treated with IV diuresis using furosemide 40 mg IV twice daily, with chest CT imaging not showing any acute CHF\infiltrates put reported 1.2x2 cm opacity in ADIS that will need a follow up CT in 6-12 months by PCP. Hospital course was complicated by acute toxic encephalopathy secondary to sepsis from left lower extremity cellulitis on a background of chronic stasis dermatitis. Aspiration precautions were maintained. The patient initially received vancomycin and piperacillin?tazobactam, later transitioned to doxycycline, given a higher likelihood of cellulitis-related skin changes, though antibiotics were continued due to multiple comorbidities. No further intravenous fluids were administered because of concern for volume overload and underlying CHF. Blood cultures were followed.To be discharged on Doxycycline and ammonium lactate. The patient was also noted to have elevated troponin levels, felt to be secondary to hypoperfusion and hypotension in the setting of sepsis. ECG showed a chronic left bundle branch block. The patient was briefly treated with an IV heparin drip. Cardiology was consulted and determined the troponin elevation to be demand-related; home apixaban was resumed, and troponins were trended without evidence of acute coronary syndrome. Discharge plan Continue Doxycycline outpatient Physical therapy at home as requested Follow with PCP for repeated Chest CT scan <Candice Cisneros NP - Last Filed: 03/02/25 13:31> Time Attestation Discharge Coordination Time (in mins): 48 <Yane Nice MD - Last Filed: 03/03/25 11:47> Quality: Safe Use of Opioids Does Pt have an Active Cancer Diagnosis on the Problem List?: No <Yane Nice MD - Last Filed: 03/03/25 11:47> Quality: Stroke Does the patient have a stroke diagnosis?: No <Yane Nice MD - Last Filed: 03/03/25 11:47> Physical Exam Exam: Exam: Appearing in no acute distress head is normocephalic atraumatic eyes pupils are PERRLA sclera is anicteric mouth throat mucous membranes are intact and moist neck is supple no lymphadenopathy, no JVD noted lung sounds are clear to auscultation heart regular rate rhythm, clear S1, S2 positive bowel sounds, abdomen is soft, nontender neuro patient is alert x3, no focal deficits <Candice Cisneros NP - Last Filed: 03/02/25 13:31> Vital Signs: Vital Signs: Last Vital Signs Temp 98.3 F 03/02/25 12:00 Pulse 79 03/02/25 12:00 Resp 18 03/02/25 12:00 BP 135/64 03/02/25 12:00 Pulse Ox 92 03/02/25 12:00 O2 Del Method Room Air 03/02/25 12:00 O2 Flow Rate 2 03/02/25 08:33 BMI result Body Mass Index 39.3 <Candice Cisneros NP - Last Filed: 03/02/25 13:31> DS: Data Data Completed and Pending Labs on day of discharge: Preliminary micro results at discharge 02/28/25 16:45 Blood Culture - Preliminary Blood - Venous No growth after 24 hours. 02/28/25 16:45 Blood Culture - Preliminary Blood - Venous No growth after 24 hours. <Candice Cisneros NP - Last Filed: 03/02/25 13:31> Imaging CT scan - chest: Radiologist's impression: ITS Impressions Chest CT 03/02/25 15:55 IMPRESSION: No evidence of pulmonary edema. Dependent atelectasis or small infiltrates in both lower lobes. Small bilateral pleural effusions. 1.2 x 2 cm groundglass opacity in the peripheral or subpleural left upper lobe. Follow-up chest CT in 6-12 months recommended. Significant aortic valve calcification and slightly dilated ascending thoracic aorta. Clinically correlate for aortic stenosis. Small pericardial effusion. Electronically signed by: Frannie Medina MD 03/02/2025 04:38 PM [facility] <Yane Nice MD - Last Filed: 03/03/25 11:47> Discharge Plan Discharge Anticipated Discharge Date/Time: 03/02/25 13:09 <Candice Cisneros NP - Last Filed: 03/02/25 13:31> Patient Disposition: Home Health Service <Candice Cisneros NP - Last Filed: 03/02/25 13:31> Discharge Diagnosis: Lower extremity cellulitis Encephalopathy <Candice Cisneros NP - Last Filed: 03/02/25 13:31> Lower extremity cellulitis Encephalopathy <Yane Nice MD - Last Filed: 03/03/25 11:47> Referrals: [facility] [Outside] - 1 Week Bolivar Braden MD [Primary Care Provider, Medical] - 1 Week <Candice Cisneros NP - Last Filed: 03/02/25 13:31> Discharge Medications: New doxycycline hyclate 100 mg tablet 100 mg PO BID Qty: 10 0RF Continued carvedilol 6.25 mg tablet 6.25 mg PO BID calcium carbonate [Calcium 600] 600 mg calcium (1,500 mg) Tablet 1,200 mg PO BEDTIME apixaban 5 mg tablet 5 mg PO BID rosuvastatin 5 mg tablet 5 mg PO DAILY aspirin [Adult Aspirin Regimen] 81 mg tablet,delayed release (DR/EC) 81 mg PO DAILY cholecalciferol (vitamin D3) 25 mcg (1,000 unit) capsule 25 mcg PO DAILY <Candice Cisneros NP - Last Filed: 03/02/25 13:31> Discharge Orders: Discharge Order (Routine); Ordered 03/03/25 Ordered By: Yane Nice <Candice Cisneros NP - Last Filed: 03/02/25 13:31> Diet: Advance to usual diet <Candice Cisneros NP - Last Filed: 03/02/25 13:31> Advance to usual diet <Yane Nice MD - Last Filed: 03/03/25 11:47> Activity on Discharge: As tolerated <Candice Cisneros NP - Last Filed: 03/02/25 13:31> As tolerated <Yane Nice MD - Last Filed: 03/03/25 11:47> Stand Alone Forms: Patient Portal Discharge page <Candice Cisneros NP - Last Filed: 03/02/25 13:31> Print Language: Welsh <Candice Cisneros NP - Last Filed: 03/02/25 13:31> Care Plan Goals: Complete course of antibiotics for cellulitis Follow up with wound clinic next week <Candice Cisneros NP - Last Filed: 03/02/25 13:31> Health Concerns: Lower extremity cellulitis Encephalopathy <Candice Cisneros NP - Last Filed: 03/02/25 13:31> Plan of Treatment: Follow up with primary care provider as needed Take all medications as prescribed Follow with PCP for repeated Chest CT scan in 6-12 months <Candice Cisneros NP - Last Filed: 03/02/25 13:31> Assessment: See discharge summary <Candice Cisneros NP - Last Filed: 03/02/25 13:31>
[2025-03-02 13:46] LABS: Chlamydia pneumoniae PCR Not Detected (Not Detect.); Coronavirus 229E PCR Not Detected (Not Detect.); Coronavirus HKU1 PCR Not Detected (Not Detect.); Coronavirus NL63 PCR Not Detected (Not Detect.); Coronavirus OC43 PCR Not Detected (Not Detect.); RSV PCR Not Detected (Not Detect.); Rhino/Enterovirus PCR Not Detected (Not Detect.); SARS-CoV-2 PCR Not Detected (Not Detect.)
[2025-03-02 14:07] LABS: Influenza A H1 PCR Not Detected (Not Detect.); Influenza A H1-2009 PCR Not Detected (Not Detect.); Influenza A H3 PCR Not Detected (Not Detect.)
--- NOTE | 2025-03-02 14:16 | MHC.CM.PN ---
Addendum entered by Cindy Jon 03/02/25 14:46: Pt. is not going to DC today, provider said she will stay Original Note: Pt. has been medically cleared to DC, she will go home via her to transport and have home care services from [facility], also a referral submitted to [facility].
--- NOTE | 2025-03-02 14:52 | P.PNIM_ITS ---
Subjective Subjective Date of Service: 03/02/25 Review of Systems Follow up encephalopathy, lower extremity cellulitis, hypoxia Patient is a little bit more confused today, likely hospital delirium Oxygen saturation 90% and increased BNP Physical Exam 2 Exam: Exam: Appearing in no acute distress lung sounds are clear to auscultation heart regular rate rhythm, clear S1, S2 positive bowel sounds, abdomen is soft, nontender neuro patient is alert x3, no focal deficits Vital Signs: Vital Signs: Last Vital Signs Temp 98.3 F 03/02/25 12:00 Pulse 79 03/02/25 12:00 Resp 18 03/02/25 12:00 BP 135/64 03/02/25 12:00 Pulse Ox 92 03/02/25 12:00 O2 Del Method Room Air 03/02/25 12:00 O2 Flow Rate 2 03/02/25 08:33 BMI result Body Mass Index 39.3 Objective Data Active Medications Acetaminophen (Acetaminophen Supp 650 Mg Supp.Rect) 650 mg MN Q6H PRN PRN Reason: Fever >101 Apixaban (Apixaban 5 Mg Tablet) 5 mg PO BID [facility] Last Admin: 03/02/25 09:42 Dose: 5 mg Documented By: SHARA Carvedilol (Carvedilol 6.25 Mg Tablet) 6.25 mg PO BID [facility]; Protocol Last Admin: 03/02/25 09:42 Dose: 6.25 mg Documented By: SHARA Furosemide (Furosemide 40 Mg/4 Ml Vial) 40 mg IVPUSH BID@0900,1800 [facility]; Protocol Last Admin: 03/02/25 09:45 Dose: 40 mg Documented By: SHARA Lactated Ringer's (Lr) 1,000 mls @ 70 mls/hr IVCONT .[id number] [facility] On Hold: 03/01/25 06:30 Last Infusion: 03/01/25 09:13 Dose: Infused Documented By: BRENDEN Piperacillin Sod/Tazobactam (Sod 4.5 gm/ Sodium Chloride) 100 mls @ 200 mls/hr IV Q6H [facility] Last Infusion: 03/02/25 13:57 Dose: Infused Documented By: SHARA Vancomycin HCl 1,500 mg/ (Sodium Chloride) 500 mls @ 333.333 mls/hr IV Q24H [facility] Last Infusion: 03/02/25 00:25 Dose: Infused Documented By: JEN Metoprolol Tartrate (Metoprolol Tartrate 5 Mg/5 Ml Vial) 2.5 mg IVPUSH Q6H PRN; Protocol PRN Reason: Rapid AFib Non-Formulary Medication (Rosuvastatin) 5 mg PO DAILY MONICA Olanzapine (Olanzapine 10 Mg Vial) 5 mg IM DAILY PRN PRN Reason: agitation Pharmacy Consult (Consult Rx Vancomycin Dosing) 1 each MISCELLANE DAILY PRN PRN Reason: Consult order Sodium Chloride (0.9 % Sodium Chloride Flush 3 Ml Syringe) 3 ml IVFLUSH QSHIFT MONICA Last Admin: 03/02/25 09:44 Dose: 3 ml Documented By: SHARA Labs 03/01/25 10:18 03/01/25 10:18 Labs: Laboratory Results - last 24 hr 03/02/25 03/02/25 08:30 13:49 Hold Purple Top SEE NOTE Hold Blue Top SEE NOTE NT-Pro-B Natriuret Pep 3694.7 H Respiratory Panel [place] See Note Adenovirus (Rapid PCR) Not Detected B.pert (TEM-PCR) Not Detected B.parapertussis DNA PCR Not Detected C. pneumoniae DNA (PCR) Not Detected Coronavirus OC43 (PCR) Not Detected Coronavirus HKU1 (PCR) Not Detected Coronavirus 229E (PCR) Not Detected Coronavirus NL63 (PCR) Not Detected Human Metapneumovir PCR Not Detected Influenza A (RT-PCR) Not Detected Influenza A (H1) PCR Not Detected Influ A (H1/09) PCR Not Detected Influenza A (H3) PCR Not Detected Influenza B (RT-PCR) Not Detected M. pneumoniae (PCR) Not Detected Parainfluenza 1 (PCR) Not Detected Parainfluenza 2 (PCR) Not Detected Parainfluenza 3 (PCR) Not Detected Parainfluenza 4 (PCR) Not Detected RSV (PCR) Not Detected Entero/Rhino (PCR) Not Detected SARS-CoV-2 RNA (RT-PCR) Not Detected Microbiology Microbiology Results: Microbiology 02/28/25 16:45 Blood Culture - Preliminary Blood - Venous No growth after 24 hours. 02/28/25 16:45 Blood Culture - Preliminary Blood - Venous No growth after 24 hours. Assessment and Plan (1) HTN (hypertension): Status: Acute Plan Gloria Vela is 89 y/o woman who presented with Low oxygen saturation ? PNA vs CHF Check chest CT BNP up from yesterday continue lasix 40mg IV BID Acute toxic encephalopathy secondary to sepsis due to LLE cellulitis (underlying stasis dermatitis). Aspiration precautions. s/p vancomycin and Zosyn switched to doxycycline, seems more likely skin changes but so to multiple other comorbidities continue antibiotics No further IVFs administration for now due to possible overload/CHF. Follow Blood cultures Elevated troponin, possible due to hypoperfusion/hypotension. Old left bundle branch block. s/p heparin IV drip. Cardiology consult> likely from demand related to concurrent medical issues, continue her usual eliquis Trend troponin. Paroxysmal atrial fibrillation. Continue Eliquis and Carvedilol Essential hypertension. Carvedilol Hyperlipidemia. Continue statin when able. Obesity, class II. BMI 39.9 kg M2. Lifestyle modification. , mild to moderate. F/U Dr. Luz. Code status: Full DVT prophylaxis: sherlyn Patient will need hospitalization for at least 2 midnights for acute toxic encephalopathy secondary to sepsis due to left lower extremity treatment with IV antibiotics and IV fluids. Quality Stroke Does the patient have a stroke diagnosis?: No VTE Prior VTE?: No VTE Risk Level:: Medical - moderate - high VTE Device Contraindication: N/A - Device Ordered VTE Drug Contraindication: Treatment Not Indicated
[2025-03-03] VITALS: BP 104/58; PULSE 81; RESP 18; TEMP 36.6; O2SAT 93
[2025-03-03 03:22] VITALS: BP 154/74; PULSE 85; RESP 19; TEMP 37; O2SAT 92
[2025-03-03 08:00] VITALS: BP 159/64; PULSE 73; RESP 18; TEMP 36.4; O2SAT 93
[2025-03-03 08:00] LABS: NT Pro B Type Natriuretic Pept 2272.9 pg/mL (<300)
[2025-03-03] MEDS: Ammonium Lactate 12 % Lotion 226 GM BOTTLE 1 APPL TOPICAL (09:10)
[2025-03-03] MEDS: Furosemide 40 MG/4 ML VIAL IVPUSH (09:10)
[2025-03-03] MEDS: 0.9 % Sodium Chloride Flush 3 ML SYRINGE IVFLUSH (09:10)
--- NOTE | 2025-03-03 11:42 | MHC.CM.PN ---
Pt, to DC today, she will go home via her and have home care services from [facility].
--- NOTE | 2025-03-03 11:47 | W.MHC.F2F ---
Service Date Service Date: 03/03/25 Encounter Date of encounter: 03/03/25 Reasons for Services Signs and symptoms assessed: physical deconditioning Reason for senior care: medication management and teach disease management Homebound: Leaving the home is medically contraindicated at this time without the asist of a device and/or another person due th the listed conditions above and below. Reason homebound: unsteady gait / fall risk Certification: Based on the above findings, I certify that this patient is confined to the home and needs intermittent senior care care, physical therapy and/or speech therapy, or continues to need occupational therapy. The patient is under my care, and I have initiated the establishment of the plan of care. The patient will be followed by a physician who will periodically review the plan of care. Time Spent With Patient Time: Total time managing care of this patient today ____ minutes.
[2025-03-03 12:00] VITALS: BP 100/48; PULSE 64; RESP 18; O2SAT 92
--- NOTE | 2025-03-03 14:49 | HO.WOUND ---
Wound Consult: Initial 89yr old?female admitted to [facility] on 03/01/25 - See progress notes and H&P for detailed history.? Wound consult placed for Right Lower Leg wounds.? Patient agreeable to assessment and photo documentation.? Patient and report the patient treats at the wound clinic outpt and has an appt on Saturday for follow up care. They are unable to recall what topical treatment has been used. She reports she uses lymphedema pumps daily and is not compliant with compression daily. We discussed the benefits of compression therapy in addition to the pumps - they report understanding and will follow up with her lymphedema provider Monique Escamilla in [place], [place]. Right Medial Ankle Right Lateral Leg and ankle Etiology: ?Venous wounds ?Present on Admission Measurements: 2cm x 4cm x 0.2cm Wound Bed: moist red pink wound bed Drainage / Odor: Small amount of yellow drainage Edges: ? irregular Olga wound: ?red pink blanchable tissue No Induration, Fluctuance or Warmth noted Pain: reports pain Goals of Treatment: ? Moist wound healing - compression therapy and outpt follow up Recommendations: Right Ankle and Lower Leg - Elevate lower leg periodically througout the day. Cleanse with NS moist gauze, pat dry. Apply Ammonium lactate to the periwound and lower legs. Apply xeroform to open wound beds followed by dry gauze dressing. Change every other day. Recommend follow up out patient Wound Clinic at [address] [place] [id number] and to call for an appointment at time of discharge. [phone].? Re-consult wound care Nurse for wound deterioration or wound changes.
== END 2025-03-03 15:16 | disposition home health service (06) | DRG 871 ==
LOC: HO.ED 03-01 04:19 → HO.EDOVER 03-01 05:07 → HO.IMC 03-01 19:39
PROVIDERS: Nurse Practitioner Acute Care; Physician Assistant; Physician Assistant Medical; Admitting Provider Internal Medicine; Emergency Provider Emergency Medicine; PCP Internal Medicine; Visit Provider Student in an Organized Health Care Education/Training Program
DX: A41.9 Sepsis, unspecified organism (principal); G92.8 Other toxic encephalopathy; L03.116 Cellulitis of left lower limb; I48.0 Paroxysmal atrial fibrillation; E78.5 Hyperlipidemia, unspecified; I10 Essential (primary) hypertension; I87.2 Venous insufficiency (chronic) (peripheral); I08.0 Rheumatic disorders of both mitral and aortic valves; E66.812 Obesity, class 2; Z71.3 Dietary counseling and surveillance; Z68.39 Body mass index [BMI] 39.0-39.9, adult; Z20.822 Contact with and (suspected) exposure to COVID-19; Z79.01 Long term (current) use of anticoagulants; Z79.82 Long term (current) use of aspirin; Z79.899 Other long term (current) drug therapy
CPT/HCPCS: 36415; 70450; 71045; 71250; 73590; 80048; 80053; 81003; 82140; 83605; 83735; 83880; 84484; 85025; 85610; 85652; 85730; 86140; 87040; 87633; 87637; 93005; 97162; 99285; J0131; J1271; J1630; J1644; J1938; J2250; J2270; J2359; J2543; J3360; J3373; J3374; J7120

== ENCOUNTER → 2025-02-28 18:52 | Outpatient (BNV) | payer MEDICARE, SELFPAY | PROVIDERS: Emergency Provider Emergency Medicine; PCP Internal Medicine; Visit Provider Student in an Organized Health Care Education/Training Program | DX: J84.9 Interstitial pulmonary disease, unspecified (principal) | CPT/HCPCS: 71045 ==

== ENCOUNTER → 2025-03-01 00:15 | Outpatient (BNV) | payer MEDICARE, SELFPAY | PROVIDERS: Emergency Provider Emergency Medicine; PCP Internal Medicine; Visit Provider General Practice | DX: R41.82 Altered mental status, unspecified (principal); R22.41 Localized swelling, mass and lump, right lower limb | CPT/HCPCS: 70450; 73590 ==

== ENCOUNTER 2025-03-01 05:00 | Outpatient (BNV) | payer MEDICARE, SELFPAY | END 2025-03-02 15:55 | PROVIDERS: Admitting Provider Internal Medicine; Emergency Provider Emergency Medicine; PCP Internal Medicine; Visit Provider Radiology Diagnostic Radiology | DX: J90 Pleural effusion, not elsewhere classified (principal); I35.8 Other nonrheumatic aortic valve disorders; I31.39 Other pericardial effusion (noninflammatory); R91.8 Other nonspecific abnormal finding of lung field | CPT/HCPCS: 71250 ==

== ENCOUNTER → 2025-03-01 05:00 | Outpatient (BNV) | payer MEDICARE, SELFPAY | PROVIDERS: Admitting Provider Internal Medicine; Emergency Provider Emergency Medicine; PCP Internal Medicine; Visit Provider Internal Medicine | DX: I48.0 Paroxysmal atrial fibrillation (principal); I21.4 Non-ST elevation (NSTEMI) myocardial infarction; I44.7 Left bundle-branch block, unspecified; I35.0 Nonrheumatic aortic (valve) stenosis | CPT/HCPCS: 93010; 99222 ==

== ENCOUNTER → 2025-03-01 05:00 | Outpatient (BNV) | payer MEDICARE, SELFPAY | PROVIDERS: Admitting Provider Internal Medicine; Emergency Provider Emergency Medicine; PCP Internal Medicine; Visit Provider Internal Medicine | DX: A41.9 Sepsis, unspecified organism (principal); L03.116 Cellulitis of left lower limb; I10 Essential (primary) hypertension; G92.8 Other toxic encephalopathy | CPT/HCPCS: 99222; 99232; 99239; 99499; G0180 ==